=== PATIENT | female | born 1960 | race Caucasian/White ===

== ENCOUNTER 2019-04-21 12:24 | Outpatient (CLI) | payer OTHER, SELFPAY ==
[2019-04-21 12:56] LABS: Basophils Absolute Auto 0.05 K/mm3 (0.00-0.10); Basophils Percent Auto 0.5 % (0.0-1.0); Eosinophils Percent Auto 2.1 % (1.0-6.0); Hematocrit 43.3 % (35.0-49.0); Hemoglobin 14.7 g/dL (12.0-15.0); Immature Granulocyte Absolute 0.05 K/mm3 (0.00-0.00); Immature Granulocyte Percent A 0.5 % (0.0-0.0); Immature Platelet Fraction Pct 3.7 % (1.0-7.0); Lymphocytes Absolute Auto 1.78 K/mm3 (1.10-4.50); Lymphocytes Percent Auto 18.5 % (18.0-42.0); Mean Corpuscular HGB Conc 33.9 g/dL (32.0-36.0); Mean Corpuscular Hemoglobin 36.8 pg (27.0-31.0); Mean Corpuscular Volume 108.5 fL (78.0-102.0); Mean Platelet Volume 10.8 fl (9.2-11.8); Monocytes Absolute Auto 0.65 K/mm3 (0.10-0.90); Monocytes Percent Auto 6.7 % (2.0-11.0); Neutrophils Absolute Auto 6.9 K/mm3 (1.7-7.2); Neutrophils Percent Auto 71.7 % (50.0-70.0); Platelet Count Result 134 K/mm3 (150-420); Red Blood Count 3.99 M/mm3 (4.20-5.40); Red Cell Distribution Width 13.6 % (11.6-14.4); White Blood Count 9.6 K/mm3 (4.8-10.8)
[2019-04-21 13:50] LABS: Alanine Aminotransferase 31 U/L (14-59); Albumin Level 4.3 g/dL (3.4-5.0); Alkaline Phosphatase 88 U/L (46-116); Anion Gap 14.8 mmol/L (7-16); Aspartate Amino Transferase 23 U/L (15-37); Bilirubin,Total 0.6 mg/dL (0.00-1.00); Blood Urea Nitrogen 20 mg/dL (7-18); Calcium 8.8 mg/dL (8.5-10.1); Carbon Dioxide 27 mmol/L (21-32); Chloride 104 mmol/L (98-108); Estimated Glomerular Filt Rate > 60; Glucose 102 mg/dL (70-99); Osmolality Calculated 296 mOsm/kg (285-295); Potassium 3.8 mmol/L (3.5-5.1); Sodium 142 mmol/L (136-145)
== END 2019-04-21 12:25 | disposition home or self-care (01) ==
LOC: CHSLAB 12:29
DX: M06.09 Rheumatoid arthritis without rheumatoid factor, multiple sites (principal); Z79.899 Other long term (current) drug therapy
CPT/HCPCS: 36415; 80053; 85025; 85055

== ENCOUNTER 2019-04-24 09:59 | Outpatient (CLI) | payer OTHER, SELFPAY ==
--- NOTE | ~2019-04-24 | CT_ITS ---
EXAMINATION:CT lung screening DATE: 04/24/2019 10:20 INDICATION: Personal history of tobacco dependence. Current smoker with 15 pack year history. TECHNIQUE: Computed tomography (CT) of the chest was performed without intravenous contrast. Automate d exposure control and iterative reconstruction technique were employed. The dose-length product (DLP ) was 103.15 mGy-cm. COMPARISON: CT abdomen and pelvis 10/02/2016 FINDINGS: There is mild atelectasis bilaterally. Calcified pulmonary nodules are consistent with old granulomatous disease. No pleural effusion. The heart size is normal. No pericardial effusion. There are calcifications in the aortic valve. There is a right internal jugular port with tip at superior c avoatrial junction. There are calcifications around the middle segment of the catheter. There is magen re thoracic spondylosis. IMPRESSION: 1. Lung-RADS category 1: Negative. Reviewed, dictated and finalized at location A. [facility]
== END 2019-04-24 10:00 | disposition home or self-care (01) ==
LOC: CHSIMG 10:01
PROVIDERS: Visit Provider Internal Medicine Infectious Disease
DX: Z12.2 Encounter for screening for malignant neoplasm of respiratory organs (principal); Z87.891 Personal history of nicotine dependence
CPT/HCPCS: G0297

== ENCOUNTER 2019-04-25 13:50 | Emergency (ER) | payer OTHER, SELFPAY ==
[2019-04-25 14:04] VITALS: BP 140/84; PULSE 79; RESP 20; TEMP 36.2; O2SAT 98
--- NOTE | 2019-04-25 14:08 | ED.UPPEXIN ---
HPI - Extremity Injury (Upper) General Chief Complaint: Extremity Injury, Upper Stated Complaint: R SHOULDER SWELLING Time Seen by Provider: 04/25/19 14:09 Source: patient Mode of arrival: ambulatory Limitations: no limitations History of Present Illness HPI narrative: A 59 y/o female-- a smoker/nondrinker hx of RA on steroids, MTX--, presents to with c/o right shoulder pain and edema. Pt states that she had a knot on both of her shoulders 1 week ago and her right shoulder started swelling 2 days ago. Pt notes that she has been ironing, sewing more than normal. Pt called her PCP and he advised that she present to UC for evaluation to r/o an infection. Pt has a PMHx of RA and fibromyalgia and is on Kevzara. Pt also takes Prednisone 5 mg and morphine tablets. She reports old neck pain, but denies any recent injuries; no fever, redness, radiating pain, numbness/weakness, lateralizing weakness, Onset (ago): day(s) (2) Other Extremity Injury: Right: shoulder Related Data Home Medications Medication Instructions Recorded Confirmed B Complex-Vitamin B12 04/25/19 Calcium 500 04/25/19 Iron 04/25/19 Vitamin C 04/25/19 Vitamin D2 04/25/19 acyclovir 400 mg PO BID 04/25/19 04/25/19 atorvastatin 40 mg PO DAILY 04/25/19 04/25/19 cyclobenzaprine 10 mg PO TID 04/25/19 04/25/19 diclofenac sodium 75 mg PO BID 04/25/19 04/25/19 ezetimibe 10 mg PO DAILY 04/25/19 04/25/19 folic acid 1 mg PO DAILY 04/25/19 04/25/19 gabapentin See Rx Instructions .ROUTE .COMPLEX 04/25/19 04/25/19 hydroxychloroquine 200 mg PO BID 04/25/19 04/25/19 lisinopril-hydrochlorothiazide 1 tablet PO DAILY 04/25/19 04/25/19 methotrexate sodium See Rx Instructions .ROUTE .COMPLEX 04/25/19 04/25/19 morphine 04/25/19 multivitamin 1 tablet PO DAILY 04/25/19 04/25/19 potassium chloride 04/25/19 prednisone 5 mg PO DAILY 04/25/19 04/25/19 sarilumab [Kevzara] 200 mg SUBCUT ONCE 04/25/19 04/25/19 sertraline 100 mg PO DAILY 04/25/19 04/25/19 trazodone 100 mg PO HS 04/25/19 04/25/19 Allergies Allergy/AdvReac Type Severity Reaction Status Date / Time Sulfa (Sulfonamide Allergy Mild Rash Verified 04/25/19 14:14 Antibiotics) levofloxacin Allergy Rash Verified 04/25/19 14:16 Review of Systems Review of Systems: Narrative: General/Constitutional: Denies: weight loss,fever, any recent injuries Eyes: Denies: Redness,discharge Ears/Nose/Throat: Denies: Epistaxis,ear discharge Respiratory: Denies: Hemoptysis Gastrointestinal: Denies: Vomiting, Bleeding-rectal Skin: Denies: Lumps, eruption Musculoskeletal: Reports: right shoulder pain and edema, neck pain Neurologic: Denies: Focal Weakness,Sz Hematologic: Denies: Petechiae/Purpura Psychiatric: Denies: Suicidal ideation All systems reviewed & are unremarkable except as noted in HPI and below PMFSH Past Medical History Medical History Anxiety Deafness in left ear Depression Fibromyalgia GERD (gastroesophageal reflux disease) H/O Sjogren's disease HLD (hyperlipidemia) HTN (hypertension) Rheumatoid arthritis Systemic lupus erythematosus Surgical History Surgical History H/O section x2 H/O foot surgery left, x3 H/O Spinal surgery H/O: hysterectomy Social History Social History (Updated 04/25/19 @ 14:24 by Vicky Gunter) Smoking status: Smoker, status unknown Alcohol intake: never Comments PCP: Dr. Rutherford At time of signature, agree with nursing past medical, surgical, social and family history. There is no relevant family history pertinent to the presenting complaint Exam Narrative: Exam Narrative: General Appearance: Well appearing, Well nourished, No distress EYE: PERRLA, EOMI, Conjunctiva clear Ears: External ear normal, Auditory canal normal Nose: Normal nose, Nares clear Mouth/Throat: Normal appearing, Normal lips Neck: Supple Respiratory: Airway patent, No respir
== END 2019-04-25 14:42 | disposition home or self-care (01) ==
PROVIDERS: Emergency Provider Emergency Medicine; PCP Physician Assistant
DX: M75.51 Bursitis of right shoulder (principal); M06.9 Rheumatoid arthritis, unspecified; M25.411 Effusion, right shoulder; F41.9 Anxiety disorder, unspecified; F32.9 Major depressive disorder, single episode, unspecified; M79.7 Fibromyalgia; K21.9 Gastro-esophageal reflux disease without esophagitis; M35.00 Sjogren syndrome, unspecified; E78.5 Hyperlipidemia, unspecified; I10 Essential (primary) hypertension; M32.9 Systemic lupus erythematosus, unspecified
CPT/HCPCS: 99213; G0463

== ENCOUNTER 2019-08-20 11:36 | Outpatient (CLI) | payer OTHER, SELFPAY ==
[2019-08-20 11:54] LABS: Basophils Absolute Auto 0.04 K/mm3 (0.00-0.10); Basophils Percent Auto 0.6 % (0.0-1.0); Eosinophils Absolute Auto 0.25 K/mm3 (0.02-0.50); Eosinophils Percent Auto 3.6 % (1.0-6.0); Hematocrit 41.7 % (35.0-49.0); Hemoglobin 14.4 g/dL (12.0-15.0); Immature Granulocyte Absolute 0.03 K/mm3 (0.00-0.00); Immature Granulocyte Percent A 0.4 % (0.0-0.0); Immature Platelet Fraction Pct 4.4 % (1.0-7.0); Lymphocytes Absolute Auto 1.66 K/mm3 (1.10-4.50); Lymphocytes Percent Auto 24.2 % (18.0-42.0); Mean Corpuscular HGB Conc 34.5 g/dL (32.0-36.0); Mean Corpuscular Hemoglobin 38.1 pg (27.0-31.0); Mean Corpuscular Volume 110.3 fL (78.0-102.0); Mean Platelet Volume 10.6 fl (9.2-11.8); Monocytes Absolute Auto 0.53 K/mm3 (0.10-0.90); Monocytes Percent Auto 7.7 % (2.0-11.0); Neutrophils Absolute Auto 4.3 K/mm3 (1.7-7.2); Neutrophils Percent Auto 63.5 % (50.0-70.0); Platelet Count Result 142 K/mm3 (150-420); Red Blood Count 3.78 M/mm3 (4.20-5.40); Red Cell Distribution Width 14.4 % (11.6-14.4); White Blood Count 6.9 K/mm3 (4.8-10.8)
[2019-08-20 12:19] LABS: Alanine Aminotransferase 30 U/L (14-59); Alkaline Phosphatase 74 U/L (46-116); Aspartate Amino Transferase 24 U/L (15-37); Bilirubin,Total 0.6 mg/dL (0.00-1.00); Blood Urea Nitrogen 17 mg/dL (7-18); Calcium 8.7 mg/dL (8.5-10.1); Carbon Dioxide 31 mmol/L (21-32); Chloride 101 mmol/L (98-108); Estimated Glomerular Filt Rate 57; Glucose 114 mg/dL (70-99); Osmolality Calculated 290 mOsm/kg (285-295); Sodium 139 mmol/L (136-145); Total Protein 6.2 g/dL (6.4-8.2)
[2019-08-20 12:20] LABS: CRP < 0.2 mg/dL (0.0-0.9)
[2019-08-20 12:55] LABS: Erythrocyte Sedimentation Rate 1 mm/hr (0-20)
== END 2019-08-20 11:37 | disposition home or self-care (01) ==
LOC: CHSLAB 11:38
PROVIDERS: PCP Physician Assistant; Visit Provider Internal Medicine
DX: M06.09 Rheumatoid arthritis without rheumatoid factor, multiple sites (principal)
CPT/HCPCS: 36415; 80053; 85025; 85055; 85652; 86140

== ENCOUNTER 2019-09-17 10:00 | Outpatient (RCR) | payer OTHER, SELFPAY ==
[2019-08-27 08:55] VITALS: BP_SYST 165
--- NOTE | 2019-08-27 10:10 | PTOPEVAL ---
INITIAL PHYSICAL THERAPY EVALUATION and PLAN OF CARE Thank you for referring Luli Galdamez to [facility]. She will be seen in PT 2x/wk x 4 wks. Please review, sign, date and return this plan of care JACK. I agree with and certify that the following plan of care is medically necessary. Referring Physician Date Admitting Provider: Attending Provider: PHYSICIAN NOT ON STAFF Referring Provider: *PT Outpatient Evaluation Start: 08/27/19 08:54 Freq: Status: Active Protocol: Document 08/27/19 08:55 INA (Rec: 08/27/19 10:02 INA [id number]) Therapy Assessment Status Assessment Status Assessment Status Evaluation Outpatient Past Medical History Past Medical History Source of Past Medical History Patient Neurological History Hx Neurological Disorders No Significant History Cardiovascular History Hx Hypercholesterolemia Yes Hx Hypertension Yes Respiratory History Hx Other Respiratory Disorders Yes: smokes 1 ppd Gastrointestinal History Hx Gastrointestinal Disorders No Significant History Genitourinary History Hx Genitourinary Disorders No Significant History Musculoskeletal History Hx Arthritis Yes: ra Hx Fibromyalgia Yes Hx Orthopedic Surgery Yes: left foot x 3 Hx Spinal Surgery Yes: cervical spine fusion Endocrine History Hx Systemic Lupus Erythematosus Yes Hx Other Endocrine Disorders Yes: sjogrens syndrome Reproductive History Hx Section Yes: x2 Other History Hx Other Medical Conditions Yes: fibromyalgia Evaluation Information Problem Diagnosis R AC jt cyst, R RTC tendinopathy, most likely a tear Onset ~6 months Additional Evaluation Detail SSI - x 15 years Subjective Information No incident - gradually came Query Text:As Reported By Patient/ on When relaxing - sudden Family sharp pains, constantly aches Unable to lie on R side Sleeping ability - fair - side sleeper - prefers R side Mornings - takes awhile to come around Takes about 1 hour to get going in mornings hot shower only helps for a little while voltaren cream - helps for a little while Diagnostic Tests X-Rays For This Problem Yes Prior Level of Function Activity Level (Last 3 Months) Hand Dominance Right Activity of Daily Living Ability Independent Indoor/Home Mobility Independent Medications Home Meds (Include: OTC, RX, Vitamins, takes 27-33 m
--- NOTE | 2019-09-08 14:42 | PCPTNOTE ---
Patient called & cancelled scheduled appointment this date due to illness.
--- NOTE | 2019-09-17 10:50 | PTOPEVAL ---
PHYSICAL THERAPY DISCHARGE NOTE Thank you for referring Luli Galdamez to [facility]. Samreen has been seen x 5 visits. She has met all goals set except for R g-h jt strength goals. I agree with Samreen's discharge from PT. Referring Physician Date Admitting Provider: Attending Provider: PHYSICIAN NOT ON STAFF Referring Provider: *PT Outpatient Evaluation Start: 08/27/19 08:54 Freq: Status: Active Protocol: Document 09/17/19 09:54 INA (Rec: 09/17/19 10:49 INA [id number]) Therapy Assessment Status Assessment Status Assessment Status Discharge Evaluation Information Problem Subjective Information Samreen reports R shoulder is Query Text:As Reported By Patient/ doing better - but still feels Family like there is no strength with her shoulder. Still having difficulties with ADLs, IADLs at times. She was having some difficulty in obtaining reciprocal pulleys - but still going to get them. Pain Assessment Timing of Pain Assessment Timing of Pain Assessment Assessment Pain Scale Pain Scale Used Numeric (1 - 10) Self Report Pain Assessment Right Shoulder(s) Reported Pain Level 5 Lowest Pain Intensity 5 Greatest Pain Intensity 8 Pain Score Pain Score 5: Self Report Upper Extremity Range of Motion Scapular/ Shoulder Range of Motion Right Shoulder Flexion - Active 168 Shoulder Extension - Active 67 Shoulder Abduction - Active 170 Shoulder Medial Rotation - Active 90 Shoulder Medial Rotation - Active T7 Query Text:Reach Behind the Back Shoulder Lateral Rotation - Active 80 Shoulder Lateral Rotation - Active T3 Query Text:Reach Behind the Head Scapular/Shoulder Range of Motion ER in neutral - 85 Comments No pain expressed with active ROM Upper Extremity Muscle Strength Testing Scapular/Shoulder Right Shoulder Flexion Strength 3+ Fair + Shoulder Extension Strength 5 Normal Shoulder Abduction Strength 3+ Fair + Shoulder Medial Rotation Strength 5 Normal Shoulder Lateral Rotation Strength 3+ Fair + Palpation Assessment Palpation Palpation good R g-h jt capsular mobility. Mild capsular end feel restriction felt at end range ER. PT Clinical Summary Clinical Summary Protocol: PTEVCODE PT Clinical Summary Quick DASH - 20.45% Samreen has met all goals set with exception of R g-h jt
== END 2019-09-22 13:16 | disposition home or self-care (01) ==
LOC: ANHPT 10:00
PROVIDERS: PCP Physician Assistant
DX: M67.911 Unspecified disorder of synovium and tendon, right shoulder (principal)
CPT/HCPCS: 97110; 97140; 97162

== ENCOUNTER 2019-11-10 13:42 | Emergency (ER) | payer OTHER, SELFPAY ==
[2019-11-10 13:45] VITALS: BP 159/79; PULSE 73; RESP 16; TEMP 36.6; O2SAT 98
--- NOTE | 2019-11-10 14:16 | ED.SKABFB ---
HPI - Skin/Abscess/Foreign Bdy General Chief complaint: Skin/Abscess/Foreign Body Stated complaint: rash ankle pain Source: patient Mode of arrival: ambulatory Limitations: no limitations History of Present Illness HPI narrative: patient is a 59-year-old female who presents with multiple itchy red spots all over her body. Patient states that she still was staying at her dad's cabin camping over the weekend. She then noticed the rash throughout her body it is itchy red spots diffusely throughout her body. She has no fevers chills no nausea vomiting she does complain of pain in her left ankle, however she has had multiple surgeries on this ankle and it hurts all the time. MD complaint: rash Onset (ago): day(s) Location: generalized Severity: moderate Quality: pruritic Pain Consistency: constant Relieving factors: none Exacerbating factors: none Context: recent camping Associated symptoms: denies other symptoms Related Data Home Medications Medication Instructions Recorded Confirmed atorvastatin 40 mg PO HS 04/25/19 11/10/19 cyclobenzaprine 10 mg PO TID PRN 04/25/19 11/10/19 diclofenac sodium 75 mg PO BID 04/25/19 11/10/19 folic acid 2 mg PO DAILY 04/25/19 11/10/19 gabapentin 900 mg PO TID 04/25/19 11/10/19 hydroxychloroquine 200 mg PO BID 04/25/19 11/10/19 lisinopril-hydrochlorothiazide 1 tablet PO DAILY 04/25/19 11/10/19 methotrexate sodium 15 mg PO WEEKLY 04/25/19 11/10/19 multivitamin 1 tablet PO DAILY 04/25/19 11/10/19 prednisone 5 mg PO DAILY 04/25/19 11/10/19 sertraline 100 mg PO DAILY 04/25/19 11/10/19 albuterol sulfate 2 puff INHALATION Q6-12H PRN 11/10/19 11/10/19 ascorbic acid (vitamin C) [Vitamin 1 g PO DAILY 11/10/19 11/10/19 C] baricitinib [Olumiant] 2 mg PO DAILY 11/10/19 11/10/19 calcium carbonate-vitamin D3 2 tablet PO DAILY 11/10/19 11/10/19 [Calcium 500 With D] cyanocobalamin (vitamin B-12) 500 mcg PO DAILY 11/10/19 11/10/19 Allergies Allergy/AdvReac Type Severity Reaction Status Date / Time Sulfa (Sulfonamide Allergy Mild Rash Verified 04/25/19 14:14 Antibiotics) levofloxacin Allergy Rash Verified 04/25/19 14:16 Review of Systems Review of Systems: All systems reviewed & are unremarkable except as noted in HPI and below Constitutional: Constitutional: Reports no additional constitutional complaints Eyes: Eyes: Reports no additional eye complaints ENT: Reports system reviewed and no additional complaints, except as documented Cardiovascular: Cardiovascular: Reports no additional cardiovascular complaints Respiratory: Respiratory: Reports no additional respiratory complaints Gastrointestinal: Gastrointestinal: Reports no additional gastrointestinal complaints Musculoskeletal: Musculoskeletal: Reports no additional musculoskeletal complaints Integumentary/Breasts: Skin/Breast: Reports as per HPI Neurologic: Reports system reviewed and no additional complaints, except as documented Psychiatric: Psychiatric: Reports no additional psychiatric complaints Endocrine: Endocrine: Reports no additional endocrine complaints Hematologic/Lymphatic: Hematologic/Lymphatic: Reports no additional hematologic/lymphatic complaints Allergic/Immunologic: Allergic/Immunologic: Reports no additional allergic/immunologic complaints PMF Past Medical History Medical History Anxiety Deafness in left ear Depression Fibromyalgia GERD (gastroesophageal reflux disease) H/O Sjogren's disease HLD (hyperlipidemia) HTN (hypertension) Rheumatoid arthritis Systemic lupus erythematosus Surgical History Surgical History H/O section x2 H/O foot surgery left, x3 H/O Spinal surgery H/O: hysterectomy Social History Social History Smoking status: Smoker, status unknown Alcohol intake: never Exam Const: Gene
[2019-11-10 14:21] VITALS: RESP 16; O2SAT 98
== END 2019-11-10 14:27 | disposition home or self-care (01) ==
PROVIDERS: Emergency Provider Emergency Medicine; PCP Physician Assistant
DX: T14.8XXA Other injury of unspecified body region, initial encounter (principal); W57.XXXA Bitten or stung by nonvenomous insect and other nonvenomous arthropods, initial encounter; M25.572 Pain in left ankle and joints of left foot; H91.92 Unspecified hearing loss, left ear; F32.9 Major depressive disorder, single episode, unspecified; M79.7 Fibromyalgia; K21.9 Gastro-esophageal reflux disease without esophagitis; M35.00 Sjogren syndrome, unspecified; E78.5 Hyperlipidemia, unspecified; I10 Essential (primary) hypertension; M06.9 Rheumatoid arthritis, unspecified; M32.9 Systemic lupus erythematosus, unspecified
CPT/HCPCS: 99281; 99282

== ENCOUNTER 2019-11-13 14:26 | Emergency (ER) | payer OTHER, SELFPAY ==
[2019-11-13 14:45] VITALS: BP 131/55; PULSE 73; RESP 16; TEMP 36.6; O2SAT 98
--- NOTE | 2019-11-13 14:54 | ED.SKABFB ---
HPI - Skin/Abscess/Foreign Bdy General Chief complaint: Skin/Abscess/Foreign Body Stated complaint: Rash Source: patient Mode of arrival: ambulatory Limitations: no limitations History of Present Illness HPI narrative: Patient is a 59-year-old female who presents complaining of multiple insect bites x3 to 4 days. She reports going to her father's cabin and reports dozens of insect bites to bilateral legs and torso. She reports insect bite above left eye. Reports itchy, denies drainage. She has not used any [id number]-[id number] creams or medication for itch relief. MD complaint: insect bite/sting Related Data Home Medications Medication Instructions Recorded Confirmed atorvastatin 40 mg PO HS 04/25/19 11/10/19 cyclobenzaprine 10 mg PO TID PRN 04/25/19 11/10/19 diclofenac sodium 75 mg PO BID 04/25/19 11/10/19 folic acid 2 mg PO DAILY 04/25/19 11/10/19 gabapentin 900 mg PO TID 04/25/19 11/10/19 hydroxychloroquine 200 mg PO BID 04/25/19 11/10/19 lisinopril-hydrochlorothiazide 1 tablet PO DAILY 04/25/19 11/10/19 methotrexate sodium 15 mg PO WEEKLY 04/25/19 11/10/19 multivitamin 1 tablet PO DAILY 04/25/19 11/10/19 prednisone 5 mg PO DAILY 04/25/19 11/10/19 sertraline 100 mg PO DAILY 04/25/19 11/10/19 albuterol sulfate 2 puff INHALATION Q6-12H PRN 11/10/19 11/10/19 ascorbic acid (vitamin C) [Vitamin 1 g PO DAILY 11/10/19 11/10/19 C] baricitinib [Olumiant] 2 mg PO DAILY 11/10/19 11/10/19 calcium carbonate-vitamin D3 2 tablet PO DAILY 11/10/19 11/10/19 [Calcium 500 With D] cyanocobalamin (vitamin B-12) 500 mcg PO DAILY 11/10/19 11/10/19 Allergies Allergy/AdvReac Type Severity Reaction Status Date / Time Sulfa (Sulfonamide Allergy Mild Rash Verified 04/25/19 14:14 Antibiotics) levofloxacin Allergy Rash Verified 04/25/19 14:16 Review of Systems Review of Systems: Narrative: CONSTITUTIONAL: Denies fever, chills, or sweats. EYES: Denies visual changes, redness, or discharge. ENT: Denies rhinorrhea, congestion, sore throat, or otalgia. CARDIOVASCULAR: Denies chest pain, palpitations, or edema. RESPIRATORY: Denies cough or dyspnea. GASTROINTESTINAL: Denies abdominal pain, nausea, vomiting, or diarrhea. GENITOURINARY: Denies dysuria or hematuria. SKIN: Reports rash to bilateral legs and torso MUSCULOSKELETAL: Denies back pain, joint pain, or myalgia. NEUROLOGIC: Denies headache, numbness, dizziness, or weakness. PSYCHIATRIC: Denies anxiety or depression. [facility] Past Medical History Medical History Anxiety Deafness in left ear Depression Fibromyalgia GERD (gastroesophageal reflux disease) H/O Sjogren's disease HLD (hyperlipidemia) HTN (hypertension) Rheumatoid arthritis Systemic lupus erythematosus Surgical History Surgical History H/O section x2 H/O foot surgery left, x3 H/O Spinal surgery H/O: hysterectomy Social History Social History Smoking status: Smoker, status unknown Alcohol intake: never Exam Narrative: Exam Narrative: GENERAL: Well-appearing, well-nourished, and in no acute distress. HEAD: Normocephalic, atraumatic. EYES: EOMI. No redness or drainage. Conjunctiva are normal. ENT: Mucous membranes pink and moist. Nares clear. No rhinorrhea. TMs normal bilaterally. Throat normal. Uvula midline. NECK: AROM. Supple. No lymphadenopathy. CHEST: No respiratory distress. Clear to auscultation. HEART: Regular rate and rhythm. No murmur appreciated. Normal peripheral pulses. GI: Soft, nontender without rebound, or guarding. No distention. Bowel sounds normal in all quadrants. MUSCULOSKELETAL: No bony tenderness. EXTREMITIES: Normal range of motion. No edema. SKIN: Warm and dry. Dozens of raised red bumps to bilateral legs and torso, no drainage or edema noted NEURO: No focal deficits. Alert and oriented x3. Gait
== END 2019-11-13 15:06 | disposition home or self-care (01) ==
PROVIDERS: Emergency Provider Nurse Practitioner
DX: S80.862A Insect bite (nonvenomous), left lower leg, initial encounter (principal); S80.861A Insect bite (nonvenomous), right lower leg, initial encounter; S30.861A Insect bite (nonvenomous) of abdominal wall, initial encounter; S20.369A Insect bite (nonvenomous) of unspecified front wall of thorax, initial encounter; S20.96XA Insect bite (nonvenomous) of unspecified parts of thorax, initial encounter; W57.XXXA Bitten or stung by nonvenomous insect and other nonvenomous arthropods, initial encounter; F41.9 Anxiety disorder, unspecified; F32.9 Major depressive disorder, single episode, unspecified; M79.7 Fibromyalgia; K21.9 Gastro-esophageal reflux disease without esophagitis; M35.00 Sjogren syndrome, unspecified; E78.5 Hyperlipidemia, unspecified; I10 Essential (primary) hypertension; M06.9 Rheumatoid arthritis, unspecified; M32.9 Systemic lupus erythematosus, unspecified
CPT/HCPCS: 99213; G0463

== ENCOUNTER 2019-11-23 09:03 | Outpatient (CLI) | payer OTHER, SELFPAY ==
[2019-11-23 09:39] LABS: Basophils Absolute Auto 0.05 K/mm3 (0.00-0.10); Basophils Percent Auto 0.5 % (0.0-1.0); Eosinophils Absolute Auto 0.27 K/mm3 (0.02-0.50); Eosinophils Percent Auto 2.9 % (1.0-6.0); Hematocrit 42.1 % (35.0-49.0); Hemoglobin 14.1 g/dL (12.0-15.0); Immature Granulocyte Absolute 0.02 K/mm3 (0.00-0.00); Immature Granulocyte Percent A 0.2 % (0.0-0.0); Lymphocytes Absolute Auto 3.29 K/mm3 (1.10-4.50); Lymphocytes Percent Auto 34.7 % (18.0-42.0); Mean Corpuscular HGB Conc 33.5 g/dL (32.0-36.0); Mean Corpuscular Hemoglobin 36.2 pg (27.0-31.0); Mean Corpuscular Volume 108.2 fL (78.0-102.0); Mean Platelet Volume 10.6 fl (9.2-11.8); Monocytes Percent Auto 7.4 % (2.0-11.0); Neutrophils Absolute Auto 5.1 K/mm3 (1.7-7.2); Neutrophils Percent Auto 54.3 % (50.0-70.0); Platelet Count Result 213 K/mm3 (150-420); Red Blood Count 3.89 M/mm3 (4.20-5.40); Red Cell Distribution Width 13.9 % (11.6-14.4); White Blood Count 9.5 K/mm3 (4.8-10.8)
[2019-11-23 10:38] LABS: Erythrocyte Sedimentation Rate 2 mm/hr (0-20)
[2019-11-23 10:54] LABS: Alanine Aminotransferase 34 U/L (14-59); Albumin Level 4.2 g/dL (3.4-5.0); Alkaline Phosphatase 85 U/L (46-116); Anion Gap 5 mmol/L (8-16); Aspartate Amino Transferase 25 U/L (15-37); Bilirubin,Total 0.8 mg/dL (0.00-1.00); Blood Urea Nitrogen 20 mg/dL (7-18); Calcium 8.8 mg/dL (8.5-10.1); Carbon Dioxide 31 mmol/L (21-32); Chloride 104 mmol/L (98-108); Cholesterol 168 mg/dL (0-200); Estimated Glomerular Filt Rate > 60; Glucose 78 mg/dL (70-99); HDL Direct 79 mg/dL (40-60); LDL Cholesterol Calculated 71 mg/dL (<130); Osmolality Calculated 291 mOsm/kg (285-295); Potassium 3.8 mmol/L (3.5-5.1); Sodium 140 mmol/L (136-145); Total Protein 6.6 g/dL (6.4-8.2); Triglycerides 88 mg/dL (0-150)
[2019-11-23 10:55] LABS: CRP < 0.2 mg/dL (0.0-0.9)
[2019-11-27 16:11] LABS: NIL 0.01
[2019-11-27 16:12] LABS: Quantiferon TB Plus, 1T Negative; TB1-NIL 0.01; TB2-NIL 0.01
== END 2019-11-23 09:04 | disposition home or self-care (01) ==
LOC: CHSLAB 09:08
PROVIDERS: Visit Provider Internal Medicine
DX: Z79.899 Other long term (current) drug therapy (principal); M08.09 Unspecified juvenile rheumatoid arthritis, multiple sites
CPT/HCPCS: 36415; 80053; 80061; 85025; 85652; 86140; 86480

== ENCOUNTER 2020-01-13 10:43 | Outpatient (CLI) | payer OTHER, SELFPAY ==
[2020-01-13 11:18] LABS: Basophils Absolute Auto 0.02 K/mm3 (0.00-0.10); Basophils Percent Auto 0.2 % (0.0-1.0); Eosinophils Absolute Auto 0.24 K/mm3 (0.02-0.50); Eosinophils Percent Auto 2.9 % (1.0-6.0); Hematocrit 41.4 % (35.0-49.0); Hemoglobin 13.9 g/dL (12.0-15.0); Immature Granulocyte Absolute 0.04 K/mm3 (0.00-0.00); Immature Granulocyte Percent A 0.5 % (0.0-0.0); Lymphocytes Absolute Auto 2.52 K/mm3 (1.10-4.50); Lymphocytes Percent Auto 30.7 % (18.0-42.0); Mean Corpuscular HGB Conc 33.6 g/dL (32.0-36.0); Mean Corpuscular Hemoglobin 35.9 pg (27.0-31.0); Mean Platelet Volume 10.3 fl (9.2-11.8); Monocytes Absolute Auto 0.37 K/mm3 (0.10-0.90); Monocytes Percent Auto 4.5 % (2.0-11.0); Neutrophils Percent Auto 61.2 % (50.0-70.0); Platelet Count Result 227 K/mm3 (150-420); Red Blood Count 3.87 M/mm3 (4.20-5.40); Red Cell Distribution Width 14.6 % (11.6-14.4); White Blood Count 8.2 K/mm3 (4.8-10.8)
[2020-01-13 11:48] LABS: Alanine Aminotransferase 28 U/L (14-59); Albumin Level 4.1 g/dL (3.4-5.0); Alkaline Phosphatase 77 U/L (46-116); Anion Gap 10 mmol/L (8-16); Aspartate Amino Transferase 23 U/L (15-37); Bilirubin,Total 0.7 mg/dL (0.00-1.00); Blood Urea Nitrogen 21 mg/dL (7-18); Calcium 8.9 mg/dL (8.5-10.1); Carbon Dioxide 28 mmol/L (21-32); Chloride 102 mmol/L (98-108); Estimated Glomerular Filt Rate > 60; Glucose 92 mg/dL (70-99); Osmolality Calculated 293 mOsm/kg (285-295); Potassium 3.8 mmol/L (3.5-5.1); Sodium 140 mmol/L (136-145); Total Protein 6.4 g/dL (6.4-8.2)
[2020-01-13 11:50] LABS: CRP < 0.2 mg/dL (0.0-0.9)
[2020-01-13 12:19] LABS: Erythrocyte Sedimentation Rate 2 mm/hr (0-20)
[2020-01-14 12:57] LABS: Add Urine Microscopic? NO; Appearance Urine Clear (Clear); Bilirubin Urine Negative (Negative); Blood Urine Negative (Negative); Color Urine Yellow (Yellow); Glucose Urine UA Negative (Negative); Ketones Urine Negative (Negative); Leukocyte Esterase Ur Negative (Negative); Nitrate Urine Negative (Negative); Protein Urine Negative (Negative); Urobilinogen Urine 0.2 mg/dL (0.2-1.0)
== END 2020-01-13 10:44 | disposition home or self-care (01) ==
DX: M75.101 Unspecified rotator cuff tear or rupture of right shoulder, not specified as traumatic (principal)
CPT/HCPCS: 36415; 80053; 81003; 85025; 85652; 86140; 87081

== ENCOUNTER 2020-02-10 10:09 | Outpatient (CLI) | payer OTHER, SELFPAY ==
[2020-02-11 18:30] LABS: SARS-CoV-2 RNA PCR Negative
== END 2020-02-10 10:10 | disposition home or self-care (01) ==
LOC: CHSLAB 10:13
PROVIDERS: PCP Physician Assistant
DX: Z20.828 Contact with and (suspected) exposure to other viral communicable diseases (principal)
CPT/HCPCS: 87635; C9803; U0003

== ENCOUNTER 2020-03-22 15:15 | Outpatient (RCR) | payer OTHER, SELFPAY ==
--- NOTE | 2020-03-17 16:21 | PTOPEVAL ---
INITIAL PHYSICAL THERAPY EVALUATION and PLAN OF CARE Thank you for referring Luli Galdamez to [facility].? Samreen is scheduled to be seen for physical therapy? 1x/week for 6 weeks - due to insurance coverage limit. Please review, sign, date and return this plan of care JACK. I agree with and certify that the following plan of care is medically necessary. Referring Physician Date Admitting Provider: Attending Provider: Nitin Zarate Referring Provider: ZAKI Outpatient Evaluation Start: 03/17/20 14:48 Freq: Status: Active Protocol: Document 03/17/20 14:40 INA (Rec: 03/17/20 16:06 INA [id number]) Therapy Assessment Status Assessment Status Assessment Status Evaluation Outpatient Past Medical History Past Medical History Source of Past Medical History Recalled from Previous Visit, Confirmed with Patient/Family Neurological History Hx Neurological Disorders No Significant History Cardiovascular History Hx Hypercholesterolemia Yes Hx Hypertension Yes Respiratory History Hx Other Respiratory Disorders Yes: smokes 1 ppd Gastrointestinal History Hx Gastrointestinal Disorders No Significant History Genitourinary History Hx Genitourinary Disorders No Significant History Musculoskeletal History Hx Arthritis Yes: ra Hx Fibromyalgia Yes Hx Orthopedic Surgery Yes: left foot x 3 Hx Spinal Surgery Yes: cervical spine fusion Endocrine History Hx Systemic Lupus Erythematosus Yes Hx Other Endocrine Disorders Yes: sjogrens syndrome Reproductive History Hx Post Menopausal Yes Evaluation Information Problem Diagnosis R shoulder reverse TSA Onset 02/15/2020 Subjective Information Out patient surgery - in a Query Text:As Reported By Patient/ sling x 3 wks. At follow up Family visit all restrictions were lifted other than lifting an heavier object. Ordered pulleys and squeeze ball. R hand has been numb since surgery except for thumb and distal end of index finger - both sides of hand/fingers. Has been reaching overhead and out to the side. Sleeping - good but unable to sleep on R side. Mornings - stiff - takes about 1/2 hour for R shoulder to loosen up. Able to do own ADLs - vacuuming - uses L UE - holds cord with R UE. Prior Level
--- NOTE | 2020-03-30 13:50 | PCPTNOTE ---
Patient had called & cancelled the rest of her scheduled appointment this date. s Stating she seen the Dr, yesterday and was told no further therapy was needed.
--- NOTE | 2020-03-31 17:20 | PCPTNOTE ---
PHYSICAL THERAPY DISCHARGE SUMMARY Admitting Provider: Attending Provider: Nitin Zarate Patient:Luli Galdamez Date of :1960 Samreen phoned following her MD visit to let us know that she no longer needed physical therapy, [facility]. [facility]s initial visit was on 03/17/2020 14:30 and she had a total of 2 visits. The goals have been met. Thank you for referring Samreen to [facility]. Please review, sign, date and return this discharge summary JACK. I have been updated about Samreen's current status and I agree with discharge from the above service at this time. Referring Physician Date
== END 2020-04-01 08:10 | disposition home or self-care (01) ==
LOC: ANHPT 15:15
PROVIDERS: PCP Physician Assistant
DX: Z48.89 Encounter for other specified surgical aftercare (principal); Z98.890 Other specified postprocedural states
CPT/HCPCS: 97110; 97161

== ENCOUNTER 2020-05-16 11:13 | Outpatient (CLI) | payer OTHER, SELFPAY ==
[2020-05-16 12:39] LABS: Alanine Aminotransferase 26 U/L (14-59); Albumin Level 4.1 g/dL (3.4-5.0); Alkaline Phosphatase 89 U/L (46-116); Anion Gap 8 mmol/L (8-16); Aspartate Amino Transferase 20 U/L (15-37); Bilirubin,Total 0.6 mg/dL (0.00-1.00); Blood Urea Nitrogen 17 mg/dL (7-18); Calcium 9.3 mg/dL (8.5-10.1); Carbon Dioxide 30 mmol/L (21-32); Chloride 100 mmol/L (98-108); Cholesterol 176 mg/dL (0-200); Estimated Glomerular Filt Rate > 60; Glucose 84 mg/dL (70-99); HDL Direct 73 mg/dL (40-60); LDL Cholesterol Calculated 79 mg/dL (<130); Osmolality Calculated 286 mOsm/kg (285-295); Potassium 4.2 mmol/L (3.5-5.1); Sodium 138 mmol/L (136-145); Total Protein 6.6 g/dL (6.4-8.2); Triglycerides 122 mg/dL (0-150)
== END 2020-05-16 11:14 | disposition home or self-care (01) ==
LOC: CHSLAB 11:17
PROVIDERS: PCP Physician Assistant; Visit Provider Internal Medicine
DX: Z79.899 Other long term (current) drug therapy (principal); M06.09 Rheumatoid arthritis without rheumatoid factor, multiple sites
CPT/HCPCS: 36415; 80053; 80061

== ENCOUNTER 2020-08-17 09:28 | Outpatient (CLI) | payer OTHER, SELFPAY ==
[2020-08-17 09:55] LABS: Basophils Absolute Auto 0.03 K/mm3 (0.00-0.10); Basophils Percent Auto 0.5 % (0.0-1.0); Eosinophils Absolute Auto 0.18 K/mm3 (0.02-0.50); Eosinophils Percent Auto 3.1 % (1.0-6.0); Hematocrit 38.4 % (35.0-49.0); Hemoglobin 12.9 g/dL (12.0-15.0); Immature Granulocyte Absolute 0.02 K/mm3 (0.00-0.00); Immature Granulocyte Percent A 0.3 % (0.0-0.0); Lymphocytes Absolute Auto 2.11 K/mm3 (1.10-4.50); Lymphocytes Percent Auto 35.8 % (18.0-42.0); Mean Corpuscular HGB Conc 33.6 g/dL (32.0-36.0); Mean Corpuscular Hemoglobin 34.2 pg (27.0-31.0); Mean Corpuscular Volume 101.9 fL (78.0-102.0); Mean Platelet Volume 10.7 fl (9.2-11.8); Monocytes Absolute Auto 0.26 K/mm3 (0.10-0.90); Monocytes Percent Auto 4.4 % (2.0-11.0); Neutrophils Absolute Auto 3.3 K/mm3 (1.7-7.2); Neutrophils Percent Auto 55.9 % (50.0-70.0); Platelet Count Result 222 K/mm3 (150-420); Red Blood Count 3.77 M/mm3 (4.20-5.40); Red Cell Distribution Width 14.8 % (11.6-14.4); White Blood Count 5.9 K/mm3 (4.8-10.8)
[2020-08-17 10:10] LABS: Alanine Aminotransferase 21 U/L (14-59); Albumin Level 3.7 g/dL (3.4-5.0); Alkaline Phosphatase 105 U/L (46-116); Anion Gap 7 mmol/L (8-16); Aspartate Amino Transferase 26 U/L (15-37); Bilirubin,Total 0.6 mg/dL (0.00-1.00); Blood Urea Nitrogen 21 mg/dL (7-18); Calcium 8.7 mg/dL (8.5-10.1); Carbon Dioxide 30 mmol/L (21-32); Chloride 103 mmol/L (98-108); Estimated Glomerular Filt Rate > 60; Glucose 88 mg/dL (70-99); Osmolality Calculated 292 mOsm/kg (285-295); Potassium 4.2 mmol/L (3.5-5.1); Sodium 140 mmol/L (136-145); Total Protein 6.4 g/dL (6.4-8.2)
== END 2020-08-17 09:29 | disposition home or self-care (01) ==
LOC: CHSLAB 09:30
PROVIDERS: PCP Family Medicine; Visit Provider Internal Medicine
DX: M06.09 Rheumatoid arthritis without rheumatoid factor, multiple sites (principal); Z79.899 Other long term (current) drug therapy
CPT/HCPCS: 36415; 80053; 85025

== ENCOUNTER 2020-08-25 12:06 | Emergency (ER) | payer OTHER, SELFPAY ==
--- NOTE | ~2020-08-25 | XR_ITS ---
XR elbow RT min 3V 08/25/2020 12:55 Indication: Right elbow pain Procedure: 4 views right elbow Comparison: No prior studies for comparison. Findings: No fracture or traumatic malalignment. There are degenerative changes of the elbow. No sign ificant joint effusion. No foreign bodies. There is mild soft tissue swelling along the ulnar aspect of the elbow. Impression: 1: No acute fracture. Reviewed, dictated and finalized at location A. Impression: 1: No acute fracture.
--- NOTE | 2020-08-25 12:38 | ED.UPPEXIN ---
HPI - Extremity Injury (Upper) General Chief Complaint: Extremity Injury, Upper Stated Complaint: rt arm bruising/pain Time Seen by Provider: 08/25/20 12:38 Source: patient and RN notes reviewed Mode of arrival: ambulatory Limitations: no limitations History of Present Illness HPI narrative: 60-year-old female presents to the [facility] with complaints of right elbow pain, bruising since February 15, 2020. States she has seen her doctor and he keeps telling her that it will get better. States that she had shoulder surgery and the bruising to the Area just has not gone away and now having tenderness to the medial elbow. Has Full ROM. +radial pulse, Cap refill under 2 seconds. Sensation intact in all 5 fingers. Full range of motion of the shoulder, elbow and wrist Related Data Home Medications Medication Instructions Recorded Confirmed atorvastatin 40 mg PO HS 04/25/19 08/25/20 cyclobenzaprine 10 mg PO TID PRN 04/25/19 08/25/20 diclofenac sodium 75 mg PO BID 04/25/19 08/25/20 folic acid 2 mg PO DAILY 04/25/19 08/25/20 gabapentin 900 mg PO TID 04/25/19 08/25/20 lisinopril-hydrochlorothiazide 1 tablet PO DAILY 04/25/19 08/25/20 methotrexate sodium 15 mg PO WEEKLY 04/25/19 08/25/20 multivitamin 1 tablet PO DAILY 04/25/19 08/25/20 sertraline 100 mg PO DAILY 04/25/19 08/25/20 albuterol sulfate 2 puff INHALATION Q6-12H PRN 11/10/19 08/25/20 ascorbic acid (vitamin C) [Vitamin 1 g PO DAILY 11/10/19 08/25/20 C] baricitinib [Olumiant] 2 mg PO DAILY 11/10/19 08/25/20 calcium carbonate-vitamin D3 2 tablet PO DAILY 11/10/19 08/25/20 [Calcium 500 With D] cyanocobalamin (vitamin B-12) 500 mcg PO DAILY 11/10/19 08/25/20 acyclovir 400 mg PO DAILY 08/25/20 08/25/20 potassium [Potassium-99] 99 mg PO DAILY 08/25/20 08/25/20 trazodone 100 mg PO HS 08/25/20 08/25/20 Allergies Allergy/AdvReac Type Severity Reaction Status Date / Time Sulfa (Sulfonamide Allergy Mild Rash Verified 08/25/20 12:36 Antibiotics) levofloxacin Allergy Rash Verified 08/25/20 12:36 Review of Systems Review of Systems: All systems reviewed & are unremarkable except as noted in HPI and below Constitutional: Constitutional: Reports no additional constitutional complaints Eyes: Eyes: Reports no additional eye complaints Cardiovascular: Cardiovascular: Reports no additional cardiovascular complaints and Denies chest pain Respiratory: Respiratory: Reports no additional respiratory complaints, Denies cough and Denies dyspnea Musculoskeletal: Musculoskeletal: Reports as per HPI and Reports arthralgias (Right elbow) Integumentary/Breasts: Skin/Breast: Reports as per HPI Comments: Bruising to the right forearm, elbow. States has been there since February 15, 2020 Neurologic: Reports system reviewed and no additional complaints, except as documented, Denies vertigo, Denies headache(s), Denies focal weakness, Denies numbness and Denies weakness Psychiatric: Psychiatric: Reports no additional psychiatric complaints Allergic/Immunologic: Allergic/Immunologic: Reports no additional allergic/immunologic complaints [facility] Past Medical History Medical History (Updated 08/25/20 @ 13:28 by Rosalie Bangura) Anxiety Deafness in left ear Depression Fibromyalgia GERD (gastroesophageal reflux disease) H/O Sjogren's disease HLD (hyperlipidemia) HTN (hypertension) Rheumatoid arthritis Systemic lupus erythematosus Surgical History Surgical History H/O section x2 H/O foot surgery left, x3 H/O Spinal surgery H/O: hysterectomy Social History Social History Smoking status: Smoker, status unknown Alcohol intake: never Comments At the time of my signature, I reviewed and agree with the nursing past medical, surgical, social, and family history. There is no relevant family history pertinent to the patient complaint. Exam Const: General: healthy appea
[2020-08-25 12:39] VITALS: BP 134/56; PULSE 83; RESP 16; TEMP 36.1; O2SAT 100
== END 2020-08-25 13:32 | disposition home or self-care (01) ==
PROVIDERS: Emergency Provider Nurse Practitioner
DX: R58 Hemorrhage, not elsewhere classified (principal); F41.9 Anxiety disorder, unspecified; F32.9 Major depressive disorder, single episode, unspecified; M79.7 Fibromyalgia; K21.9 Gastro-esophageal reflux disease without esophagitis; M35.00 Sjogren syndrome, unspecified; E78.5 Hyperlipidemia, unspecified; I10 Essential (primary) hypertension; M06.9 Rheumatoid arthritis, unspecified; M32.9 Systemic lupus erythematosus, unspecified
CPT/HCPCS: 73080; 99213; G0463

== ENCOUNTER 2020-11-15 09:23 | Outpatient (CLI) | payer OTHER, SELFPAY ==
[2020-11-15 09:40] LABS: Basophils Absolute Auto 0.03 K/mm3 (0.00-0.10); Basophils Percent Auto 0.4 % (0.0-1.0); Eosinophils Absolute Auto 0.11 K/mm3 (0.02-0.50); Eosinophils Percent Auto 1.3 % (1.0-6.0); Hematocrit 38.9 % (35.0-49.0); Hemoglobin 13.5 g/dL (12.0-15.0); Immature Granulocyte Absolute 0.03 K/mm3 (0.00-0.00); Immature Granulocyte Percent A 0.4 % (0.0-0.0); Lymphocytes Absolute Auto 2.56 K/mm3 (1.10-4.50); Lymphocytes Percent Auto 29.9 % (18.0-42.0); Mean Corpuscular HGB Conc 34.7 g/dL (32.0-36.0); Mean Corpuscular Hemoglobin 35.9 pg (27.0-31.0); Mean Corpuscular Volume 103.5 fL (78.0-102.0); Mean Platelet Volume 9.9 fl (9.2-11.8); Monocytes Absolute Auto 0.37 K/mm3 (0.10-0.90); Monocytes Percent Auto 4.3 % (2.0-11.0); Neutrophils Absolute Auto 5.5 K/mm3 (1.7-7.2); Neutrophils Percent Auto 63.7 % (50.0-70.0); Platelet Count Result 246 K/mm3 (150-420); Red Blood Count 3.76 M/mm3 (4.20-5.40); Red Cell Distribution Width 16.1 % (11.6-14.4); White Blood Count 8.6 K/mm3 (4.8-10.8)
[2020-11-15 10:43] LABS: Erythrocyte Sedimentation Rate 4 mm/hr (0-20)
[2020-11-15 11:17] LABS: Alanine Aminotransferase 32 U/L (14-59); Albumin Level 4.1 g/dL (3.4-5.0); Alkaline Phosphatase 113 U/L (46-116); Anion Gap 9 mmol/L (8-16); Aspartate Amino Transferase 23 U/L (15-37); Bilirubin,Total 0.9 mg/dL (0.00-1.00); Blood Urea Nitrogen 29 mg/dL (7-18); Calcium 8.7 mg/dL (8.5-10.1); Carbon Dioxide 28 mmol/L (21-32); Chloride 103 mmol/L (98-108); Estimated Glomerular Filt Rate 57; Glucose 82 mg/dL (70-99); Osmolality Calculated 294 mOsm/kg (285-295); Potassium 3.9 mmol/L (3.5-5.1); Sodium 140 mmol/L (136-145); Total Protein 6.5 g/dL (6.4-8.2)
[2020-11-15 11:18] LABS: CRP < 0.2 mg/dL (0.0-0.9)
[2020-11-18 09:16] LABS: NIL 0.01 IU/mL
[2020-11-18 09:17] LABS: TB1-NIL 0.01 IU/mL
[2020-11-18 09:20] LABS: Quantiferon TB Plus, 1T NEGATIVE
== END 2020-11-15 09:24 | disposition home or self-care (01) ==
LOC: CHSLAB 09:26
PROVIDERS: PCP Family Medicine; Visit Provider Internal Medicine
DX: M06.09 Rheumatoid arthritis without rheumatoid factor, multiple sites (principal); Z79.899 Other long term (current) drug therapy
CPT/HCPCS: 36415; 80053; 85025; 85652; 86140; 86480

== ENCOUNTER 2021-01-10 17:02 | Emergency (ER) | payer OTHER, SELFPAY ==
[2021-01-10 17:29] VITALS: BP 160/70; PULSE 94; RESP 20; TEMP 36.6; O2SAT 96
--- NOTE | 2021-01-10 17:33 | ED_ITS ---
HPI - Extremity Injury (Upper) General Chief Complaint: Extremity Injury, Upper Stated Complaint: bleeding from arm. Related Data Home Medications Medication Instructions Recorded Confirmed atorvastatin 40 mg PO HS 04/25/19 08/25/20 cyclobenzaprine 10 mg PO TID PRN 04/25/19 08/25/20 diclofenac sodium 75 mg PO BID 04/25/19 08/25/20 folic acid 2 mg PO DAILY 04/25/19 08/25/20 gabapentin 900 mg PO TID 04/25/19 08/25/20 lisinopril-hydrochlorothiazide 1 tablet PO DAILY 04/25/19 08/25/20 methotrexate sodium 15 mg PO WEEKLY 04/25/19 08/25/20 multivitamin 1 tablet PO DAILY 04/25/19 08/25/20 sertraline 100 mg PO DAILY 04/25/19 08/25/20 albuterol sulfate 2 puff INHALATION Q6-12H PRN 11/10/19 08/25/20 ascorbic acid (vitamin C) [Vitamin 1 g PO DAILY 11/10/19 08/25/20 C] baricitinib [Olumiant] 2 mg PO DAILY 11/10/19 08/25/20 calcium carbonate-vitamin D3 2 tablet PO DAILY 11/10/19 08/25/20 [Calcium 500 With D] cyanocobalamin (vitamin B-12) 500 mcg PO DAILY 11/10/19 08/25/20 acyclovir 400 mg PO DAILY 08/25/20 08/25/20 potassium [Potassium-99] 99 mg PO DAILY 08/25/20 08/25/20 trazodone 100 mg PO HS 08/25/20 08/25/20 Allergies Allergy/AdvReac Type Severity Reaction Status Date / Time Sulfa (Sulfonamide Allergy Mild Rash Verified 01/10/21 17:45 Antibiotics) levofloxacin Allergy Rash Verified 01/10/21 17:45 [facility] Past Medical History Medical History (Updated 08/26/20 @ 00:00 by Devyn Spence) Anxiety Deafness in left ear Depression Fibromyalgia GERD (gastroesophageal reflux disease) H/O Sjogren's disease HLD (hyperlipidemia) HTN (hypertension) Rheumatoid arthritis Systemic lupus erythematosus Surgical History Surgical History H/O section x2 H/O foot surgery left, x3 H/O Spinal surgery H/O: hysterectomy Social History Social History Smoking status: Smoker, status unknown Alcohol intake: never Discharge Plan Discharge Prescriptions: No Action ascorbic acid (vitamin C) [Vitamin C] 1,000 mg Tablet 1 g PO DAILY RF: 0 cyanocobalamin (vitamin B-12) 500 mcg Tablet 500 mcg PO DAILY RF: 0 albuterol sulfate 90 mcg/actuation HFA aerosol inhaler 2 puff INHALATION Q6-12H PRN (Reason: Shortness Of Breath) RF: 0 calcium carbonate-vitamin D3 [Calcium 500 With D] 500 mg(1,250mg) -400 unit Tablet 2 tablet PO DAILY RF: 0 Olumiant 2 mg Tablet 2 mg PO DAILY RF: 0 cyclobenzaprine 10 mg Tablet 10 mg PO TID PRN (Reason: Muscle Spasm) RF: 0 atorvastatin 40 mg Tablet 40 mg PO HS RF: 0 sertraline 100 mg Tablet 100 mg PO DAILY RF: 0 methotrexate sodium 2.5 mg Tablet 15 mg PO WEEKLY RF: 0 gabapentin 300 mg Capsule 900 mg PO TID RF: 0 diclofenac sodium 75 mg Tablet,Delayed Release (Dr/Ec) 75 mg PO BID RF: 0 folic acid 1 mg Tablet 2 mg PO DAILY RF: 0 lisinopril-hydrochlorothiazide 10-12.5 mg Tablet 1 tablet PO DAILY RF: 0 multivitamin Tablet 1 tablet PO DAILY RF: 0 acyclovir 400 mg tablet 400 mg PO DAILY RF: 0 potassium [Potassium-99] 99 mg Tablet 99 mg PO DAILY RF: 0 trazodone 100 mg tablet 100 mg PO HS RF: 0
--- NOTE | 2021-01-10 17:55 | ED.UPPEXIN ---
HPI - Extremity Injury (Upper) General Chief Complaint: Extremity Injury, Upper Stated Complaint: bleeding from arm. Source: patient and family Mode of arrival: ambulatory Limitations: no limitations History of Present Illness HPI narrative: 60-year-old female history of rheumatoid arthritis, lupus, fibromyalgia had right shoulder replacement done at [facility] . Postoperatively she noted bleeding coming from her right shoulder incision site. the patient had ongoing bleeding from the right incision site. The patient presented to the ER dressing soaked with blood. I removed the dressing over the incision site which was glued. The bleeding was noted to be coming from 2-3 spots measuring 2-3 mm. I had the patient lay flat and placed a sandbag over the incision site. MD complaint: injury to: right and shoulder Onset (ago): hour(s) ( Three hours. The bleeding started right after surgery even before she left the hospital) Other injuries: none Severity: moderate Relieving factors: none Exacerbating factors: none Context: other ( postoperative bleeding.) Associated symptoms: other ( The patient complains of numbness of the right upper extremity. It appears that she got a nerve block for the surgery.) Treatments prior to arrival: bandage Related Data Home Medications Medication Instructions Recorded Confirmed atorvastatin 40 mg PO HS 04/25/19 01/10/21 cyclobenzaprine 10 mg PO TID PRN 04/25/19 01/10/21 diclofenac sodium 75 mg PO BID 04/25/19 01/10/21 folic acid 2 mg PO DAILY 04/25/19 01/10/21 gabapentin 900 mg PO TID 04/25/19 01/10/21 lisinopril-hydrochlorothiazide 1 tablet PO DAILY 04/25/19 01/10/21 methotrexate sodium 15 mg PO WEEKLY 04/25/19 01/10/21 multivitamin 1 tablet PO DAILY 04/25/19 01/10/21 sertraline 100 mg PO DAILY 04/25/19 01/10/21 albuterol sulfate 2 puff INHALATION Q6-12H PRN 11/10/19 01/10/21 ascorbic acid (vitamin C) [Vitamin 1 g PO DAILY 11/10/19 01/10/21 C] baricitinib [Olumiant] 2 mg PO DAILY 11/10/19 01/10/21 calcium carbonate-vitamin D3 2 tablet PO DAILY 11/10/19 01/10/21 [Calcium 500 With D] cyanocobalamin (vitamin B-12) 500 mcg PO DAILY 11/10/19 01/10/21 acyclovir 400 mg PO DAILY 08/25/20 01/10/21 potassium [Potassium-99] 99 mg PO DAILY 08/25/20 01/10/21 trazodone 100 mg PO HS 08/25/20 01/10/21 Allergies Allergy/AdvReac Type Severity Reaction Status Date / Time Sulfa (Sulfonamide Allergy Mild Rash Verified 01/10/21 17:45 Antibiotics) levofloxacin Allergy Rash Verified 01/10/21 17:45 Review of Systems Review of Systems: All systems reviewed & are unremarkable except as noted in HPI and below ( HPI) Constitutional: Constitutional: Reports as per HPI Respiratory: Respiratory: Reports other ( Chronic cough with sputum production.) Musculoskeletal: Musculoskeletal: Reports other ( the patient has chronic joint pains.) [facility] Past Medical History Medical History (Updated 01/11/21 @ 00:00 by Background Daemon) Anxiety Deafness in left ear Depression Fibromyalgia GERD (gastroesophageal reflux disease) H/O Sjogren's disease HLD (hyperlipidemia) HTN (hypertension) Medical history reviewed with no changes Rheumatoid arthritis Systemic lupus erythematosus Surgical History Surgical History (Updated 01/11/21 @ 00:00 by Background Daemon) H/O section x2 H/O foot surgery left, x3 H/O Spinal surgery H/O: hysterectomy History of right shoulder replacement Social History Social History Smoking status: Smoker, status unknown Alcohol intake: never Exam Narrative: The patient had right shoulder replacement and have wound is glued together. The incision is approximately 10 cm. There are 2 mm bleeding spots on the incision. There is 3 cm hematoma on either side of the incision site. The patient is unable to move her shoulder. No significant tenderness is noted over the incision site. Con
[2021-01-10 18:12] LABS: Basophils Absolute Auto 0.02 K/mm3 (0.00-0.10); Basophils Percent Auto 0.2 % (0.0-1.0); Hematocrit 36.9 % (35.0-49.0); Hemoglobin 12.4 g/dL (12.0-15.0); Immature Granulocyte Absolute 0.07 K/mm3 (0.00-0.00); Immature Granulocyte Percent A 0.6 % (0.0-0.0); Lymphocytes Absolute Auto 0.75 K/mm3 (1.10-4.50); Lymphocytes Percent Auto 5.9 % (18.0-42.0); Mean Corpuscular HGB Conc 33.6 g/dL (32.0-36.0); Mean Corpuscular Hemoglobin 36.9 pg (27.0-31.0); Mean Corpuscular Volume 109.8 fL (78.0-102.0); Mean Platelet Volume 10.4 fl (9.2-11.8); Monocytes Absolute Auto 0.28 K/mm3 (0.10-0.90); Monocytes Percent Auto 2.2 % (2.0-11.0); Neutrophils Absolute Auto 11.5 K/mm3 (1.7-7.2); Neutrophils Percent Auto 91.1 % (50.0-70.0); Platelet Count Result 256 K/mm3 (150-420); Red Blood Count 3.36 M/mm3 (4.20-5.40); Red Cell Distribution Width 15.9 % (11.6-14.4); White Blood Count 12.7 K/mm3 (4.8-10.8)
[2021-01-10 18:21] LABS: Anion Gap 10 mmol/L (8-16); Blood Urea Nitrogen 11 mg/dL (7-18); Calcium 8.9 mg/dL (8.5-10.1); Carbon Dioxide 23 mmol/L (21-32); Chloride 105 mmol/L (98-108); Estimated CRCL calculation 71 ml/min; Estimated Glomerular Filt Rate > 60; Glucose 141 mg/dL (70-99); Osmolality Calculated 287 mOsm/kg (285-295); Sodium 138 mmol/L (136-145)
[2021-01-10 18:23] LABS: Potassium 5.2 mmol/L (3.5-5.1)
[2021-01-10 18:35] VITALS: BP 132/76; PULSE 70; RESP 18; O2SAT 98
--- NOTE | 2021-01-10 18:44 | PC.NURSE ---
PRESSURE WEIGHT TO ARM TO HELP STOP OOZING OF WOUND
[2021-01-10] MEDS: HYDROcodone/acetaminophen (*CRX) 5-325 MG TABLET 1 TAB PO (19:04)
--- NOTE | 2021-01-10 19:21 | PC.NURSE ---
NO BLEEDING, ABD & ARM WRAPPED IN COBAN, NEW SLING APPLIED
[2021-01-10 19:23] VITALS: BP 136/70; PULSE 75; RESP 18; TEMP 36.6; O2SAT 98
== END 2021-01-10 19:25 | disposition home or self-care (01) ==
PROVIDERS: Emergency Provider Internal Medicine Critical Care Medicine; PCP Family Medicine
DX: M96.830 Postprocedural hemorrhage of a musculoskeletal structure following a musculoskeletal system procedure (principal); Z96.611 Presence of right artificial shoulder joint
CPT/HCPCS: 36415; 80048; 85025; 99282; 99283; A4565; A9270

== ENCOUNTER 2021-06-20 14:29 | Outpatient (CLI) | payer OTHER, SELFPAY ==
[2021-06-20 14:46] LABS: Basophils Absolute Auto 0.04 K/mm3 (0.00-0.10); Basophils Percent Auto 0.4 % (0.0-1.0); Eosinophils Absolute Auto 0.04 K/mm3 (0.02-0.50); Eosinophils Percent Auto 0.4 % (1.0-6.0); Hematocrit 42.8 % (35.0-49.0); Hemoglobin 14.3 g/dL (12.0-15.0); Immature Granulocyte Absolute 0.03 K/mm3 (0.00-0.00); Immature Granulocyte Percent A 0.3 % (0.0-0.0); Lymphocytes Absolute Auto 1.28 K/mm3 (1.10-4.50); Lymphocytes Percent Auto 13.1 % (18.0-42.0); Mean Corpuscular HGB Conc 33.4 g/dL (32.0-36.0); Mean Corpuscular Hemoglobin 36.4 pg (27.0-31.0); Mean Corpuscular Volume 108.9 fL (78.0-102.0); Mean Platelet Volume 10.1 fl (9.2-11.8); Monocytes Percent Auto 5.1 % (2.0-11.0); Neutrophils Absolute Auto 7.9 K/mm3 (1.7-7.2); Neutrophils Percent Auto 80.7 % (50.0-70.0); Platelet Count Result 247 K/mm3 (150-420); Red Blood Count 3.93 M/mm3 (4.20-5.40); Red Cell Distribution Width 14.3 % (11.6-14.4); White Blood Count 9.8 K/mm3 (4.8-10.8)
[2021-06-20 15:31] LABS: Alanine Aminotransferase 29 U/L (14-59); Albumin Level 3.9 g/dL (3.4-5.0); Alkaline Phosphatase 94 U/L (46-116); Anion Gap 8 mmol/L (8-16); Aspartate Amino Transferase 24 U/L (15-37); Bilirubin,Total 0.3 mg/dL (0.00-1.00); Blood Urea Nitrogen 16 mg/dL (7-18); Calcium 8.9 mg/dL (8.5-10.1); Carbon Dioxide 30 mmol/L (21-32); Chloride 103 mmol/L (98-108); Estimated Glomerular Filt Rate > 60; Glucose 205 mg/dL (70-99); Osmolality Calculated 299 mOsm/kg (285-295); Potassium 3.9 mmol/L (3.5-5.1); Sodium 141 mmol/L (136-145); Total Protein 6.5 g/dL (6.4-8.2)
[2021-06-20 15:34] LABS: CRP < 0.2 mg/dL (0.0-0.9)
[2021-06-20 15:54] LABS: Erythrocyte Sedimentation Rate 10 mm/hr (0-20)
== END 2021-06-20 14:30 | disposition home or self-care (01) ==
LOC: CHSLAB 14:33
PROVIDERS: PCP Physician Assistant
DX: Z79.899 Other long term (current) drug therapy (principal); M06.09 Rheumatoid arthritis without rheumatoid factor, multiple sites
CPT/HCPCS: 36415; 80053; 85025; 85652; 86140

== ENCOUNTER 2021-09-20 11:11 | Outpatient (CLI) | payer OTHER, SELFPAY ==
[2021-09-20 11:41] LABS: Basophils Absolute Auto 0.04 K/mm3 (0.00-0.10); Basophils Percent Auto 0.5 % (0.0-1.0); Eosinophils Absolute Auto 0.13 K/mm3 (0.02-0.50); Eosinophils Percent Auto 1.6 % (1.0-6.0); Hematocrit 43.8 % (35.0-49.0); Hemoglobin 14.7 g/dL (12.0-15.0); Immature Granulocyte Absolute 0.08 K/mm3 (0.00-0.00); Lymphocytes Absolute Auto 1.76 K/mm3 (1.10-4.50); Lymphocytes Percent Auto 21.3 % (18.0-42.0); Mean Corpuscular HGB Conc 33.6 g/dL (32.0-36.0); Mean Corpuscular Hemoglobin 35.4 pg (27.0-31.0); Mean Corpuscular Volume 105.5 fL (78.0-102.0); Mean Platelet Volume 10.5 fl (9.2-11.8); Monocytes Absolute Auto 0.51 K/mm3 (0.10-0.90); Monocytes Percent Auto 6.2 % (2.0-11.0); Neutrophils Absolute Auto 5.7 K/mm3 (1.7-7.2); Neutrophils Percent Auto 69.4 % (50.0-70.0); Platelet Count Result 240 K/mm3 (150-420); Red Blood Count 4.15 M/mm3 (4.20-5.40); Red Cell Distribution Width 15.4 % (11.6-14.4); White Blood Count 8.3 K/mm3 (4.8-10.8)
[2021-09-20 11:57] LABS: Alanine Aminotransferase 27 U/L (14-59); Albumin Level 3.7 g/dL (3.4-5.0); Alkaline Phosphatase 85 U/L (46-116); Anion Gap 5 mmol/L (8-16); Aspartate Amino Transferase 24 U/L (15-37); Bilirubin,Total 0.6 mg/dL (0.00-1.00); Blood Urea Nitrogen 17 mg/dL (7-18); Carbon Dioxide 30 mmol/L (21-32); Chloride 102 mmol/L (98-108); Cholesterol 174 mg/dL (0-200); Estimated Glomerular Filt Rate > 60; Glucose 130 mg/dL (70-99); HDL Direct 74 mg/dL (40-60); LDL Cholesterol Calculated 56 mg/dL (<130); Osmolality Calculated 287 mOsm/kg (285-295); Potassium 3.9 mmol/L (3.5-5.1); Sodium 137 mmol/L (136-145); Total Protein 6.7 g/dL (6.4-8.2); Triglycerides 220 mg/dL (0-150)
[2021-09-20 11:59] LABS: CRP < 0.2 mg/dL (0.0-0.9)
[2021-09-20 12:50] LABS: Erythrocyte Sedimentation Rate 4 mm/hr (0-20)
== END 2021-09-20 11:12 | disposition home or self-care (01) ==
LOC: CHSLAB 11:17
PROVIDERS: PCP Physician Assistant
DX: Z79.899 Other long term (current) drug therapy (principal); M06.09 Rheumatoid arthritis without rheumatoid factor, multiple sites
CPT/HCPCS: 36415; 80053; 80061; 85025; 85652; 86140

== ENCOUNTER 2021-09-29 09:30 | Outpatient (CLI) | payer OTHER, SELFPAY ==
[2021-09-29 10:08] LABS: Hemoglobin A1C 5.6 % (<5.7)
== END 2021-09-29 09:31 | disposition home or self-care (01) ==
LOC: CHSLAB 09:34
PROVIDERS: PCP Physician Assistant; Visit Provider Physician Assistant
DX: R73.09 Other abnormal glucose (principal)
CPT/HCPCS: 36415; 83036

== ENCOUNTER 2021-12-19 13:22 | Outpatient (CLI) | payer OTHER, SELFPAY ==
[2021-12-19 13:42] LABS: Basophils Absolute Auto 0.04 K/mm3 (0.00-0.10); Basophils Percent Auto 0.3 % (0.0-1.0); Eosinophils Absolute Auto 0.09 K/mm3 (0.02-0.50); Eosinophils Percent Auto 0.7 % (1.0-6.0); Hematocrit 43.1 % (35.0-49.0); Hemoglobin 14.6 g/dL (12.0-15.0); Immature Granulocyte Absolute 0.08 K/mm3 (0.00-0.00); Immature Granulocyte Percent A 0.6 % (0.0-0.0); Lymphocytes Absolute Auto 1.54 K/mm3 (1.10-4.50); Lymphocytes Percent Auto 11.4 % (18.0-42.0); Mean Corpuscular HGB Conc 33.9 g/dL (32.0-36.0); Mean Corpuscular Hemoglobin 35.8 pg (27.0-31.0); Mean Corpuscular Volume 105.6 fL (78.0-102.0); Mean Platelet Volume 10.2 fl (9.2-11.8); Monocytes Absolute Auto 0.81 K/mm3 (0.10-0.90); Platelet Count Result 212 K/mm3 (150-420); Red Blood Count 4.08 M/mm3 (4.20-5.40); Red Cell Distribution Width 13.6 % (11.6-14.4); White Blood Count 13.5 K/mm3 (4.8-10.8)
[2021-12-19] MEDS: HEPARIN SODIUM LOCK FLUSH 500 UNITS/5 ML SYRINGE IV PUSH (14:09)
[2021-12-19 14:10] LABS: Alanine Aminotransferase 30 U/L (14-59); Albumin Level 3.7 g/dL (3.4-5.0); Alkaline Phosphatase 74 U/L (46-116); Anion Gap 6 mmol/L (8-16); Aspartate Amino Transferase 24 U/L (15-37); Bilirubin,Total 0.4 mg/dL (0.00-1.00); Blood Urea Nitrogen 17 mg/dL (7-18); Calcium 9.3 mg/dL (8.5-10.1); Carbon Dioxide 32 mmol/L (21-32); Chloride 101 mmol/L (98-108); Estimated Glomerular Filt Rate > 60; Glucose 103 mg/dL (70-99); Osmolality Calculated 289 mOsm/kg (285-295); Sodium 139 mmol/L (136-145); Total Protein 6.8 g/dL (6.4-8.2)
== END 2021-12-19 13:23 | disposition home or self-care (01) ==
LOC: CHSLAB 13:26 → CHSTREATRM 13:50
PROVIDERS: PCP Physician Assistant
DX: Z79.899 Other long term (current) drug therapy (principal)
CPT/HCPCS: 36415; 36592; 80053; 85025

== ENCOUNTER 2022-06-04 12:14 | Outpatient (CLI) | payer OTHER, SELFPAY ==
--- NOTE | 2022-06-04 12:38 | PC.NURSE ---
Coding Advisor called by lab to come draw blood for labs using Port a cath. SEE vascular assessment. Patient tolerated well. Safe exit of hospital.
[2022-06-04 13:00] LABS: CRP < 0.5 mg/dL (0.0-0.9)
[2022-06-06 13:04] LABS: NIL 0.01 IU/mL; Quantiferon TB Plus, 1T NEGATIVE (NEGATIVE)
[2022-06-08 03:00] LABS: Hepatitis B Surface Antigen Nonreactive (Nonreactive); Hepatitis C Signal to Cutoff 0.01 ratio (<1.00); Hepatitis C Virus Antibody Nonreactive (Nonreactive)
== END 2022-06-04 12:15 | disposition home or self-care (01) ==
LOC: CHSLAB 12:18
PROVIDERS: PCP Physician Assistant
DX: M06.09 Rheumatoid arthritis without rheumatoid factor, multiple sites (principal); Z11.59 Encounter for screening for other viral diseases
CPT/HCPCS: 36415; 36592; 86140; 86480; 86803; 87340

== ENCOUNTER 2022-08-30 09:40 | Outpatient (CLI) | payer OTHER, SELFPAY ==
[2022-08-30 10:13] LABS: Basophils Absolute Auto 0.06 K/mm3 (0.00-0.10); Basophils Percent Auto 0.5 % (0.0-1.0); Eosinophils Absolute Auto 0.14 K/mm3 (0.02-0.50); Eosinophils Percent Auto 1.1 % (1.0-6.0); Hematocrit 47.6 % (35.0-49.0); Hemoglobin 15.6 g/dL (12.0-15.0); Immature Granulocyte Absolute 0.15 K/mm3 (0.00-0.00); Immature Granulocyte Percent A 1.2 % (0.0-0.0); Lymphocytes Absolute Auto 4.01 K/mm3 (1.10-4.50); Lymphocytes Percent Auto 31.9 % (18.0-42.0); Mean Corpuscular HGB Conc 32.8 g/dL (32.0-36.0); Mean Corpuscular Hemoglobin 33.8 pg (27.0-31.0); Mean Platelet Volume 9.6 fl (9.2-11.8); Monocytes Absolute Auto 0.81 K/mm3 (0.10-0.90); Monocytes Percent Auto 6.4 % (2.0-11.0); Neutrophils Absolute Auto 7.4 K/mm3 (1.7-7.2); Neutrophils Percent Auto 58.9 % (50.0-70.0); Platelet Count Result 256 K/mm3 (150-420); Red Blood Count 4.62 M/mm3 (4.20-5.40); Red Cell Distribution Width 14.8 % (11.6-14.4); White Blood Count 12.6 K/mm3 (4.8-10.8)
[2022-08-30 10:21] LABS: Hemoglobin A1C 6.1 % (<5.7)
[2022-08-30 11:16] LABS: Alanine Aminotransferase 34 U/L (14-59); Alkaline Phosphatase 78 U/L (46-116); Anion Gap 9 mmol/L (8-16); Aspartate Amino Transferase 33 U/L (15-37); Bilirubin,Total 0.6 mg/dL (0.00-1.00); Blood Urea Nitrogen 25 mg/dL (7-18); Calcium 9.5 mg/dL (8.5-10.1); Carbon Dioxide 30 mmol/L (21-32); Chloride 100 mmol/L (98-108); Cholesterol 205 mg/dL (0-200); Estimated Glomerular Filt Rate > 60; Glucose 86 mg/dL (70-99); HDL Direct 93 mg/dL (40-60); LDL Cholesterol Calculated 93 mg/dL (<130); Osmolality Calculated 291 mOsm/kg (285-295); Potassium 4.1 mmol/L (3.5-5.1); Sodium 139 mmol/L (136-145); Thyroid Stimulating Hormone Reflex 3.51 u/IU/mL (0.36-3.74); Triglycerides 93 mg/dL (0-150)
[2022-09-02 21:44] LABS: Vitamin D 25 Hydroxy 53 ng/mL (30-100)
== END 2022-08-30 09:41 | disposition home or self-care (01) ==
LOC: CHSLAB 09:49
PROVIDERS: PCP Physician Assistant; Visit Provider Internal Medicine Rheumatology
DX: E55.9 Vitamin D deficiency, unspecified (principal); Z79.899 Other long term (current) drug therapy; I10 Essential (primary) hypertension; R73.9 Hyperglycemia, unspecified; E78.49 Other hyperlipidemia
CPT/HCPCS: 36415; 80053; 80061; 82306; 83036; 84443; 85025

== ENCOUNTER 2022-09-15 08:39 | Outpatient (CLI) | payer OTHER, SELFPAY ==
[2022-09-15 08:51] LABS: Basophils Absolute Auto 0.03 K/mm3 (0.00-0.10); Basophils Percent Auto 0.3 % (0.0-1.0); Eosinophils Absolute Auto 0.16 K/mm3 (0.02-0.50); Eosinophils Percent Auto 1.5 % (1.0-6.0); Hematocrit 43.1 % (35.0-49.0); Hemoglobin 14.2 g/dL (12.0-15.0); Immature Granulocyte Absolute 0.05 K/mm3 (0.00-0.00); Immature Granulocyte Percent A 0.5 % (0.0-0.0); Lymphocytes Absolute Auto 2.89 K/mm3 (1.10-4.50); Lymphocytes Percent Auto 27.4 % (18.0-42.0); Mean Corpuscular HGB Conc 32.9 g/dL (32.0-36.0); Mean Corpuscular Hemoglobin 34.1 pg (27.0-31.0); Mean Corpuscular Volume 103.6 fL (78.0-102.0); Mean Platelet Volume 10.2 fl (9.2-11.8); Monocytes Absolute Auto 1.04 K/mm3 (0.10-0.90); Monocytes Percent Auto 9.8 % (2.0-11.0); Neutrophils Absolute Auto 6.4 K/mm3 (1.7-7.2); Neutrophils Percent Auto 60.5 % (50.0-70.0); Platelet Count Result 227 K/mm3 (150-420); Red Blood Count 4.16 M/mm3 (4.20-5.40); Red Cell Distribution Width 14.2 % (11.6-14.4); White Blood Count 10.6 K/mm3 (4.8-10.8)
== END 2022-09-15 08:40 | disposition home or self-care (01) ==
LOC: CHSLAB 08:41
PROVIDERS: PCP Physician Assistant; Visit Provider Physician Assistant
DX: D72.829 Elevated white blood cell count, unspecified (principal)
CPT/HCPCS: 36415; 85025

== ENCOUNTER 2023-01-14 12:39 | Outpatient (CLI) | payer OTHER, SELFPAY ==
--- NOTE | ~2023-01-14 | DEXA_ITS ---
Bone Density Report Name: FLETCHER NAZARIO Age: 62 Sex: Female Ethnicity: White Date of : 1960 Indication: postmenopausal; screening for osteoporosis; height loss; hysterectomy; rheumatoid arthritis; secondary osteoporosis; Referring Provider: JURGEN, VIMAL Moore Study: Bone densitometry was performed. Exam Date: January 14, 2023 Accession number: [id number] Bone Density: Region BMD T-score Z-score Classification AP Spine(L1-L4) 1.162 1.0 2.7 Normal Femoral Neck (Left) 0.765 -0.8 0.7 Normal Total Hip (Left) 0.816 -1.0 0.1 Normal Femoral Neck (Right) 0.839 -0.1 1.4 Normal Total Hip (Right) 0.804 -1.1 0.0 Osteopenia Femoral Neck Mean 0.802 -0.4 1.0 Normal Total Hip Mean 0.810 -1.1 0.1 Osteopenia World Health Organization criteria for BMD impression classify patients as: Normal (T-score at or above -1.0), Osteopenia (T-score between -1.0 and -2.5), or Osteoporosis (T-score at or below -2.5). 10-year Fracture Risk(1): Major Osteoporotic Fracture 9.4% Hip Fracture 1.0% Reported Risk Factors: [place] (), Neck BMD=0.765, BMI=28.4, smoking, rheumatoid arthritis, secondary osteoporosis (1) FRAX(R) Version 3.08. Fracture probability calculated for an untreated patient. Fracture probability may be lower if the patient has received treatment. Clinical Information Provided by Patient: Smokes Has rheumatoid arthritis Has secondary osteoporosis Has used the following medications: Vitamin D, Calcium Has the following medical conditions: Hysterectomy Patient maximum height was 71 Menopause Age: 30 No regular weight bearing exercise Drinks caffeinated beverages Onset of menses at age 9 Number of children 2 Impression: The patient has low bone mass, based on the Right Total Hip T-score. The patient has risk factors, including: smoking. Discussion: BONE DENSITY IS LOW AT ONE OR MORE SKELETAL SITES. This patient's lowest T-score is low at one or more skeletal sites. It meets the World Health Organization's (WHO) criteria for ?low bone mass? (T-score between -1.0 and -2.5). The patient's 10-year risk of fracture as calculated by FRAX is less than the threshold where pharmacological therapy is recommended by the National Osteoporosis Foundation (NOF). However, all treatment decisions require clinical judgment and consideration of individual patient factors, including patient preferences, comorbidities, previous drug use, risk factors not captured in the FRAX model (e.g., frailty, falls, vitamin D deficiency, increased bone turnover, interval significant decline in bone density) and possible under or overestimation of fracture risk by FRAX. The patient should follow a healthful lifestyle (good nutrition with adequate calcium and vitamin D, and appropriate
== END 2023-01-14 12:40 | disposition home or self-care (01) ==
LOC: CHSIMG 12:41
PROVIDERS: PCP Physician Assistant; Visit Provider Internal Medicine Rheumatology
DX: Z79.52 Long term (current) use of systemic steroids (principal); M85.89 Other specified disorders of bone density and structure, multiple sites
CPT/HCPCS: 77080

== ENCOUNTER 2023-03-27 10:44 | Outpatient (RCR) | payer OTHER, SELFPAY ==
[2022-12-28 10:28] LABS: Basophils Absolute Auto 0.04 K/mm3 (0.00-0.10); Basophils Percent Auto 0.3 % (0.0-1.0); Eosinophils Absolute Auto 0.16 K/mm3 (0.02-0.50); Eosinophils Percent Auto 1.4 % (1.0-6.0); Hematocrit 42.1 % (35.0-49.0); Hemoglobin 14.1 g/dL (12.0-15.0); Immature Granulocyte Absolute 0.09 K/mm3 (0.00-0.00); Immature Granulocyte Percent A 0.8 % (0.0-0.0); Lymphocytes Absolute Auto 3.23 K/mm3 (1.10-4.50); Lymphocytes Percent Auto 27.3 % (18.0-42.0); Mean Corpuscular HGB Conc 33.5 g/dL (32.0-36.0); Mean Corpuscular Volume 98.6 fL (78.0-102.0); Mean Platelet Volume 9.8 fl (9.2-11.8); Monocytes Absolute Auto 0.96 K/mm3 (0.10-0.90); Monocytes Percent Auto 8.1 % (2.0-11.0); Neutrophils Absolute Auto 7.4 K/mm3 (1.7-7.2); Neutrophils Percent Auto 62.1 % (50.0-70.0); Platelet Count Result 246 K/mm3 (150-420); Red Blood Count 4.27 M/mm3 (4.20-5.40); Red Cell Distribution Width 14.9 % (11.6-14.4); White Blood Count 11.9 K/mm3 (4.8-10.8)
[2022-12-28 11:22] LABS: Alanine Aminotransferase 30 U/L (14-59); Albumin Level 3.5 g/dL (3.4-5.0); Alkaline Phosphatase 76 U/L (46-116); Anion Gap 10 mmol/L (8-16); Aspartate Amino Transferase 19 U/L (15-37); Bilirubin,Total 0.4 mg/dL (0.00-1.00); Blood Urea Nitrogen 29 mg/dL (7-18); Calcium 9.1 mg/dL (8.5-10.1); Carbon Dioxide 28 mmol/L (21-32); Chloride 103 mmol/L (98-108); Estimated Glomerular Filt Rate > 60; Glucose 84 mg/dL (70-99); Osmolality Calculated 296 mOsm/kg (285-295); Potassium 4.1 mmol/L (3.5-5.1); Sodium 141 mmol/L (136-145); Total Protein 6.2 g/dL (6.4-8.2)
[2023-03-27 11:09] LABS: Basophils Absolute Auto 0.06 K/mm3 (0.00-0.10); Basophils Percent Auto 0.4 % (0.0-1.0); Eosinophils Absolute Auto 0.15 K/mm3 (0.02-0.50); Eosinophils Percent Auto 0.9 % (1.0-6.0); Hematocrit 45.6 % (35.0-49.0); Hemoglobin 15.3 g/dL (12.0-15.0); Immature Granulocyte Absolute 0.22 K/mm3 (0.00-0.00); Immature Granulocyte Percent A 1.4 % (0.0-0.0); Lymphocytes Absolute Auto 3.05 K/mm3 (1.10-4.50); Lymphocytes Percent Auto 19.1 % (18.0-42.0); Mean Corpuscular HGB Conc 33.6 g/dL (32.0-36.0); Mean Corpuscular Hemoglobin 33.3 pg (27.0-31.0); Mean Corpuscular Volume 99.3 fL (78.0-102.0); Monocytes Absolute Auto 1.16 K/mm3 (0.10-0.90); Monocytes Percent Auto 7.3 % (2.0-11.0); Neutrophils Absolute Auto 11.3 K/mm3 (1.7-7.2); Neutrophils Percent Auto 70.9 % (50.0-70.0); Platelet Count Result 259 K/mm3 (150-420); Red Blood Count 4.59 M/mm3 (4.20-5.40); Red Cell Distribution Width 15.2 % (11.6-14.4)
[2023-03-27 12:13] LABS: Alanine Aminotransferase 36 U/L (14-59); Albumin Level 4.2 g/dL (3.4-5.0); Alkaline Phosphatase 73 U/L (46-116); Anion Gap 10 mmol/L (8-16); Aspartate Amino Transferase 24 U/L (15-37); Bilirubin,Total 0.7 mg/dL (0.00-1.00); Blood Urea Nitrogen 19 mg/dL (7-18); Calcium 9.2 mg/dL (8.5-10.1); Carbon Dioxide 28 mmol/L (21-32); Chloride 96 mmol/L (98-108); Estimated Glomerular Filt Rate 49; Glucose 99 mg/dL (70-99); Osmolality Calculated 280 mOsm/kg (285-295); Potassium 4.3 mmol/L (3.5-5.1); Sodium 134 mmol/L (136-145)
== END 2023-03-28 23:59 | disposition home or self-care (01) ==
LOC: CHSLAB 10:44
PROVIDERS: PCP Physician Assistant; Visit Provider Internal Medicine Rheumatology
DX: Z51.81 Encounter for therapeutic drug level monitoring (principal); Z79.899 Other long term (current) drug therapy
CPT/HCPCS: 36415; 36591; 80053; 85025

== ENCOUNTER 2023-07-15 10:34 | Outpatient (CLI) | payer OTHER, SELFPAY ==
[2023-07-15 11:15] LABS: Basophils Absolute Auto 0.04 K/mm3 (0.00-0.10); Basophils Percent Auto 0.4 % (0.0-1.0); Eosinophils Absolute Auto 0.25 K/mm3 (0.02-0.50); Eosinophils Percent Auto 2.5 % (1.0-6.0); Hematocrit 43.1 % (35.0-49.0); Hemoglobin 14.2 g/dL (12.0-15.0); Immature Granulocyte Absolute 0.07 K/mm3 (0.00-0.00); Immature Granulocyte Percent A 0.7 % (0.0-0.0); Lymphocytes Absolute Auto 3.04 K/mm3 (1.10-4.50); Lymphocytes Percent Auto 30.4 % (18.0-42.0); Mean Corpuscular HGB Conc 32.9 g/dL (32-36); Mean Corpuscular Hemoglobin 33.1 pg (27.0-31.0); Mean Corpuscular Volume 100.5 fL (78.0-102.0); Mean Platelet Volume 10.2 fl (9.2-11.8); Monocytes Absolute Auto 0.76 K/mm3 (0.10-0.90); Monocytes Percent Auto 7.6 % (2.0-11.0); Neutrophils Absolute Auto 5.83 K/mm3 (1.70-7.20); Neutrophils Percent Auto 58.4 % (50.0-70.0); Platelet Count Result 210 K/mm3 (150-420); Red Blood Count 4.29 M/mm3 (4.20-5.40); Red Cell Distribution Width 14.6 % (11.6-14.4)
[2023-07-15 11:41] LABS: Anion Gap 7 mmol/L (4-12); Blood Urea Nitrogen 21 mg/dL (7-18); Carbon Dioxide 33 mmol/L (21-32); Chloride 102 mmol/L (98-108); Potassium 3.9 mmol/L (3.5-5.1); Sodium 142 mmol/L (136-145)
[2023-07-15 11:42] LABS: Alanine Aminotransferase 37 U/L (14-59); Albumin Level 3.5 g/dL (3.4-5.0); Alkaline Phosphatase 63 U/L (46-116); Aspartate Amino Transferase 26 U/L (15-37); Bilirubin,Total 0.5 mg/dL (0.00-1.00); Calcium 9.3 mg/dL (8.5-10.1); Estimated Glomerular Filt Rate > 60; Glucose 76 mg/dL (70-99); Osmolality Calculated 296 mOsm/kg (285-295); Total Protein 6.2 g/dL (6.4-8.2)
== END 2023-07-15 10:35 | disposition home or self-care (01) ==
LOC: CHSLAB 10:39
PROVIDERS: PCP Nurse Practitioner Family; Visit Provider Internal Medicine Rheumatology
DX: Z79.899 Other long term (current) drug therapy (principal); Z79.622 Long term (current) use of Janus kinase inhibitor
CPT/HCPCS: 36415; 80053; 85025

== ENCOUNTER 2024-03-23 08:56 | Outpatient (CLI) | payer OTHER, SELFPAY ==
[2024-03-23 09:25] LABS: Basophils Absolute Auto 0.04 K/mm3 (0.00-0.10); Basophils Percent Auto 0.4 % (0.0-1.0); Eosinophils Absolute Auto 0.13 K/mm3 (0.02-0.50); Eosinophils Percent Auto 1.3 % (1.0-6.0); Hematocrit 40.2 % (35.0-49.0); Hemoglobin 13.3 g/dL (12.0-15.0); Immature Granulocyte Absolute 0.06 K/mm3 (0.00-0.00); Immature Granulocyte Percent A 0.6 % (0.0-0.0); Lymphocytes Absolute Auto 3.19 K/mm3 (1.10-4.50); Lymphocytes Percent Auto 31.8 % (18.0-42.0); Mean Corpuscular HGB Conc 33.1 g/dL (32-36); Mean Corpuscular Hemoglobin 32.8 pg (27.0-31.0); Neutrophils Absolute Auto 5.82 K/mm3 (1.70-7.20); Neutrophils Percent Auto 57.9 % (50.0-70.0); Platelet Count Result 303 K/mm3 (150-420); Red Blood Count 4.06 M/mm3 (4.20-5.40); Red Cell Distribution Width 15.1 % (11.6-14.4)
[2024-03-23 10:08] LABS: Alanine Aminotransferase 36 U/L (14-59); Albumin Level 3.8 g/dL (3.4-5.0); Alkaline Phosphatase 62 U/L (46-116); Anion Gap 11 mmol/L (4-12); Aspartate Amino Transferase 28 U/L (15-37); Bilirubin,Total 0.7 mg/dL (0.00-1.00); Blood Urea Nitrogen 19 mg/dL (7-18); Calcium 9.1 mg/dL (8.5-10.1); Carbon Dioxide 29 mmol/L (21-32); Chloride 101 mmol/L (98-108); Estimated Glomerular Filt Rate 56; Glucose 85 mg/dL (70-99); Osmolality Calculated 293 mOsm/kg (285-295); Potassium 3.9 mmol/L (3.5-5.1); Sodium 141 mmol/L (136-145); Total Protein 6.3 g/dL (6.4-8.2)
== END 2024-03-23 08:57 | disposition home or self-care (01) ==
LOC: CHSLAB 08:59
PROVIDERS: PCP Nurse Practitioner Family; Visit Provider Internal Medicine Rheumatology
DX: Z79.622 Long term (current) use of Janus kinase inhibitor (principal)
CPT/HCPCS: 36415; 80053; 85025

== ENCOUNTER 2024-05-08 11:23 | Outpatient (CLI) | payer MEDICARE, SELFPAY ==
[2024-05-08 11:47] LABS: Basophils Absolute Auto 0.06 K/mm3 (0.00-0.10); Basophils Percent Auto 0.4 % (0.0-1.0); Eosinophils Absolute Auto 0.09 K/mm3 (0.02-0.50); Eosinophils Percent Auto 0.6 % (1.0-6.0); Hemoglobin 14.5 g/dL (11.7-13.8); Immature Granulocyte Absolute 0.12 K/mm3 (0.00-0.00); Immature Granulocyte Percent A 0.9 % (0.0-0.0); Lymphocytes Absolute Auto 1.01 K/mm3 (1.10-4.50); Lymphocytes Percent Auto 7.3 % (18.0-42.0); Mean Corpuscular HGB Conc 32.2 g/dL (32-36); Mean Corpuscular Hemoglobin 33.4 pg (27.0-31.0); Mean Corpuscular Volume 103.7 fL (78.0-102.0); Mean Platelet Volume 10.7 fl (9.2-11.8); Monocytes Absolute Auto 0.59 K/mm3 (0.10-0.90); Monocytes Percent Auto 4.3 % (2.0-11.0); Neutrophils Absolute Auto 11.99 K/mm3 (1.70-7.20); Neutrophils Percent Auto 86.5 % (50.0-70.0); Platelet Count Result 269 K/mm3 (150-420); Red Blood Count 4.34 M/mm3 (4.20-5.40); Red Cell Distribution Width 15.8 % (11.6-14.4); White Blood Count 13.9 K/mm3 (4.8-10.8)
[2024-05-08 12:36] LABS: Alanine Aminotransferase 41 U/L (14-59); Albumin Level 3.6 g/dL (3.4-5.0); Alkaline Phosphatase 89 U/L (46-116); Anion Gap 12 mmol/L (4-12); Aspartate Amino Transferase 51 U/L (15-37); Bilirubin,Total 0.6 mg/dL (0.00-1.00); Blood Urea Nitrogen 25 mg/dL (7-18); Calcium 9.3 mg/dL (8.5-10.1); Carbon Dioxide 26 mmol/L (21-32); Chloride 100 mmol/L (98-108); Estimated Glomerular Filt Rate > 60; Glucose 133 mg/dL (70-99); Osmolality Calculated 292 mOsm/kg (285-295); Potassium 5.2 mmol/L (3.5-5.1); Sodium 138 mmol/L (136-145); Total Protein 6.8 g/dL (6.4-8.2)
== END 2024-05-08 11:24 | disposition home or self-care (01) ==
LOC: CHSLAB 11:26
PROVIDERS: PCP Nurse Practitioner Family; Visit Provider Internal Medicine Rheumatology
DX: Z79.622 Long term (current) use of Janus kinase inhibitor (principal)
CPT/HCPCS: 36415; 80053; 85025

== ENCOUNTER 2024-06-03 13:57 | Outpatient (CLI) | payer MEDICARE, SELFPAY ==
--- NOTE | ~2024-06-03 | CT_ITS ---
EXAMINATION:CT lung screening DATE: 06/03/2024 14:53 INDICATION: Personal history of nicotine dependence. Current smoker with 50 pack year history. TECHNIQUE: Computed tomography (CT) of the chest was performed without intravenous contrast. Automate d exposure control and iterative reconstruction technique were employed. The dose-length product (DLP ) was 89.71 mGy-cm. COMPARISON: Chest CT 04/24/2019 FINDINGS: There is a 4 mm groundglass nodule in right upper lobe. There is mild atelectasis bilateral ly. Calcified bilateral lung nodules are consistent with old granulomatous disease. No pleural effusi on. The heart size is normal. There are calcifications aortic valve. No pericardial effusion. There i s a right internal jugular port with tip at superior cavoatrial junction. There is a total right shou lder arthroplasty. There is severe thoracic spondylosis. There is mild chronic anterior wedging of mu ltiple vertebral bodies. IMPRESSION: 1. Lung-RADS category 2: Benign appearance or behavior. Continue annual screening with noncontrast lo w-dose chest CT in 12 months. Reviewed, dictated and finalized at location A. IMPRESSION: 1. Lung-RADS category 2: Benign appearance or behavior. Continue annual screeni ng with noncontrast low-dose chest CT in 12 months.
--- NOTE | ~2024-06-03 | MM_ITS ---
EXAMINATION: MM screening [facility] BI w demetris HISTORY: Screening TECHNIQUE: Craniocaudal and mediolateral oblique 3-D tomosynthesis images were obtained and synthetic 2-D images were generated. CAD analysis was submitted and interpreted. COMPARISON: 04/17/2018 and dating back to 12/02/2012 BREAST PARENCHYMAL COMPOSITION: There are scattered areas of fibroglandular density. FINDINGS: Bulky calcifications are detected bilaterally, increasing in quantity since 2019 and morpho logically benign in appearance. Stable parenchymal pattern without suspicious microcalcifications, architectural distortion, discrete masses or significant asymmetry. IMPRESSION: 1. No mammographic evidence of malignancy. 2. Recommend routine screening mammography in one year. BI-RADS Category 2: Benign finding(s). Reviewed, dictated and finalized at location A.
--- OUTSIDE RECORDS SUMMARY | 2024-06-03 15:10 | XMS_ITS | Clinical Summary ---
Author Organization [facility] Address [address] [place] [address] Care Team Providers Care Arts Manager Name Role Phone Errol Babb MD Unavailable Dennise Rose PA-C Primary Care Provider [phone]- [phone] Marya Herring ORTHOPEDIC PHYSICIAN ASSISTANT-SHELLFISH BED WORKER Unavailable + Source Comments [facility],non-owned Affiliates and Associated Physician Practices is amultiple site organization consisting of ambulatory clinics and hospital sitesin [place], [place]. This disclosure is being madepursuant to the Care Everywhere program and may not contain all information available regarding this patient. Last updated 17.[facility] Allergies Active Allergy Reactions Criticality Noted Date Comments Levofloxacin Other High 07/29/2017 Other reaction(s): Hives Sulfa Drugs Hematologic High 10/28/2018 Other reaction(s): Hives Sulfamethoxazole W-Trimethoprim Other High 04/26/2016 Causes sores all over body Causes sores all over body Medications * Be aware that medications may not be up to date on this document. Alwaysverify current medications with the patient. Medication Sig Dispensed Refills Start Date End Date Status Multiple Vitamins-Minerals (MULTIVITAMIN ADULT PO) Take 1 tablet by mouth once daily Active Calcium Carb-Cholecalcifer ol (CALCIUM 1000 + D PO) Take 1 tablet by mouth as directed Active cyanocobalamin (VITAMIN B-12) 500 MCG tablet Take 1 (one) tablet by mouth once daily Active vitamin C (ASCORBIC ACID) 1000 MG tablet Take 1 (one) tablet by mouth once daily Active Potassium 99 MG tablet Take 1 (one) tablet by mouth once daily Active albuterol HFA (PROVENTIL; VENTOLIN; PROAIR) 108 (90 Base) MCG/ACT inhaler Inhale 2 (two) puffs by mouth every 6 hours as needed Active traZODone (DESYREL) 100 MG tablet Take 1 (one) tablet by mouth at bedtime 0 Active SYMBICORT 160-4.5 MCG/ACT inhaler Inhale 2 (two) puffs by mouth 2 times daily 1 Active vitamin D, ergocalciferol, (DRISDOL) 1.25 MG (62978 UT) capsule Take 1 (one) capsule by mouth as directed 1 Active ezetimibe (ZETIA) 10 MG tablet Take 1 (one) tablet by mouth once daily 1 Active atorvastatin (Lipitor) 40 MG tablet Take 1 (one) tablet by mouth once daily 2 Active acyclovir (Zovirax) 400 MG tablet Take 1 (one) tablet by mouth 2 times daily 3 Active cyclobenzaprine (Flexeril) 10 MG tablet Take 1 (one) tablet by mouth 3 times daily as needed 3 Active lisinopril-hydroCH LOROthiazide (Prinzide; Zestoretic) 20-25 MG tablet Take 1 (one) tablet by mouth once daily 3 Active heparin lock flush 10 UNIT/ML injectionIndicatio ns:Port-A-Cath in place 1 mL by Intracatheter route as needed (Routine maintenance indwelling venous port care) 1 mL 11 4 Active baricitinib (Olumiant) 2 MG tabletIndications: Rheumatoid Arthritis Take 1 (one) tablet by mouth once daily Reasons: Rheumatoid Arthritis 30 tablet 5 Active predniSONE (Deltasone) 5 MG tabletIndications: Rheumatoid Arthritis Take 1 (one) tablet by mouth every morning Reasons: Rheumatoid Arthritis 90 tablet 5 Active DULoxetine (Cymbalta) 60 MG capsuleIndications :Fibromyalgia Syndrome,Musculosk eletal Pain Take 1 (one) capsule by mouth once daily Reasons: Fibromyalgia Syndrome, Musculoskeletal Pain 90 capsule 3 5 Active pregabalin (Lyrica) 100 MG capsuleIndications :Fibromyalgia Syndrome,Chronic lumbar spinal pain. Take 1 (one) capsule by mouth 3 times daily For chronic lumbar spinal pain. Reasons: Fibromyalgia Syndrome, Chronic lumbar spinal pain. 90 capsule 5 5 Active DULoxetine (Cymbalta) 60 MG capsuleIndications :Generalized osteoarthritis of multiple sites,Fibromyalgia syndrome Take 1 (one) capsule by mouth once daily 90 capsule 4 05/29/19 25 Discontinu ed(Reorder ) predniSONE (Deltasone) 5 MG tabletIndications: Rheumatoid Arthritis Take 1 (one) tablet by mouth every morning Reasons: Rheumatoid Arthritis 90 tablet 4 05/19/19 25 Discontinu ed(Reorder ) pregabalin (Lyrica) 100 MG capsuleIndications :Chronic bilateral low back pain with bilateral sciatica Take 1 (one) capsule by mouth 3 times daily For chronic lumbar spinal pain. 90 capsule 1 5 05/29/19 25 Discontinu ed(Reorder ) Active Problems Problem Noted Date Diagnosed Date Primary osteoarthritis of both hands 11/28/2023 Overview (11/28/2023): Examination findings consistent with 1st [facility], scattered PIP and DIP changes with both Shana's and Heberden nodes. Generalized osteoarthritis of multiple sites Overview (01/28/2023): Currently receiving both duloxetine 60 mg q.day and pregabalin 100 mg t.i.d. and awaiting spinal pain management consultation. Low back pain 11/28/2022 01/03/2023 Neurogenic claudication 11/22/2022 Chronic bilateral low back pain with bilateral s ciatica 09/04/2022 Overview (09/04/2022): Suspect degenerative mechanical LBP although uncertain if she is experiencing true sciatica. Check baseline lumbar x-rays and refer to spinal specialist. Chronic hip pain, bilateral 06/20/2021 Overview (06/20/2021): Increasing bilateral hip pain. History of RA on low dose prednisone. R/o DJD vs osteonecrosis. Check x-rays today. Rheumatoid arthritis, seronegative, multiple sit es 03/22/2021 History of rheumatoid arthritis 03/22/2021 Assessment & Plan (03/22/2021 9:14 AM FRONT DESK ASSOCIATE): Previous diagnosis of s eronegative rheumatoid arthritis however current examination findings strongly suggest changes of osteoarthritis noted in the hands and feet without any evidence of active synovitis now on a combination of olulmient, methotrexate and prednisone. I do not have access to her previous x-rays and suggested that we follow-up bilateral hand films and compared to her 2019 report for further review purposes. Previous C-reactive protein measurements have been normal as well which does raise some consideration of possible chronic noninflammatory arthritis such as osteoarthritis rather than rheumatoid disease. Based upon the intensity of her treatment and potential risks inherent with this combination DMARD therapy I do believe it is important to better define her underlying arthropathy the best provide long-term additional treatment recommendations. In the meanwhile I have suggested that she decrease her methotrexate dose down to 7.5 mg Q 7 days and will clinically reassess again in 3 months. director long term care systemic steroid user 03/22/2021 Assessment & Plan (06/20/2021 9:05 AM CDT): Will need repeated routine monitoring lab including CBC with differential and CMP for continued use of methotrexate and Olumiant. Assessment & Plan (03/22/2021 9:16 AM FRONT DESK ASSOCIATE): On a combination of methotrexate and Olumient as kinase inhibitor which does require continued close lab monitoring specially for any developing hematologic or hepatotoxicity effects from this combination DMARD treatment plan. Additionally I reviewed the potential immune suppressive effects of Olumient which can lead to potentially severe in even life-threatening infection complications as well as rare reported thrombotic events including deep venous thrombosis, pulmonary embolism, stroke or myocardial infarction. If she develops any concerning symptoms should seek immediate emergency department evaluation. Mild intermittent asthma without complication S/P shoulder surgery 03/29/2020 Anxiety 03/01/2020 Benign essential hypertension 03/01/2020 Chronic depression 03/01/2020 Fibromyalgia syndrome 03/01/2020 Assessment & Plan (03/22/2021 9:18 AM FRONT DESK ASSOCIATE): She requested additional refills of gabapentin which she takes for presumable f ibromyalgia . I did discuss that I do not provide long-term treatment for fibromyalgia is a noninflammatory chronic pain syndrome I probably should seek further management by her primary care provider for this type of condition. I will provide limited refills for 6 months until she can get back with her primary care provider. Her also asked about additional stronger pain medication and I deferred that discussion to her primary care provider but also indicated I would strongly discourage the use of narcotic medication for fibromyalgia or osteoarthritis and would try to seek non opiate pain medication options including possible trial of duloxetine. Gastroesophageal reflux disease 03/01/2020 Hyperglycemia 03/01/2020 Smoker 03/01/2020 Verruca vulgaris 03/01/2020 Viral warts 03/01/2020 Smoker 03/01/2020 Overview (01/12/2021): Last Assessment & Plan: encouraged cessation Hypertension 11/30/2019 Other hyperlipidemia 11/30/2019 Other insomnia 11/30/2019 Hypertension 11/30/2019 Overview (01/12/2021): Last Assessment & Plan: Blood pressure is well controlled with no changes in regimen at this time Encouraged to continue to monitor at home and log and call office with any concerns in future. Right rotator cuff tear arthropathy 10/20/2019 Tendinopathy of right rotator cuff 08/24/2019 Vitamin D deficiency 10/16/2018 Verruca plantaris 04/26/2016 Neuropathy of foot, left Resolved Problems Problem Noted Date Diagnosed Date Resolved Date High risk medications (not a nticoagulants) long-term use (Olumiant Janus kinase inhibitor) 09/04/2022 01/28/2023 Overview (09/04/2022): Most recent outside lab testing dated 08/30/2022 without evidence of hematologic or hepatotoxicity effects. Continue routine outside lab monitor Q 12 weeks. High risk medications (not a nticoagulants) long-term use w/ methotrexate 7.5 mg p.o. Q 7 days and Olumiant 2 mg q.day as a Janus kinase inhibitor 09/19/2021 06/04/2022 Overview (09/19/2021): Await routine Q 12 week lab monitoring testing as ordered to be collected later today for full assessment. Preoperative clearance 01/06/202103/22 Overview (01/12/2021): Last Assessment & Plan: EKG reviewed with no change from previous - SR with RBBB - No anginal symptoms Known risk for CVD - HTN, HLD, nicotine dependence intermediate risk for planned procedure Acute bronchitis 03/01/2020 06/20/2021 Cellulitis of finger 03/01/2020 022 Fracture of foot 03/01/2020 06/20/2021 Need for prophylactic vaccin ation against Streptococcus pneumoniae (pneumococcus) and influenza 03/01/2020 01/28/2023 Traumatic blister of foot 03/01/2020 Rheumatoid arthritis 09/25/2016 022 Septic shock 09/25/2016 03/22/2021 Pain in left foot 04/26/2016 06/20/2021 Encounters Date Type Department Care Team Description 05/28/2024 8:40 AM CDT Office Visit [facility] - Rheumatology [address] [place] [address], [address] [place] [phone] Luis Trevino DO Rheumatoid arthritis, seronegative, multiple sites (Primary Dx); Generalized osteoarthritis of multiple sites; Fibromyalgia syndrome; Chronic bilateral low back pain with bilateral sciatica; Elevated AST (SGOT) 05/18/2024 Refill [facility] - Rheumatology [address] [place] [address], [address] [place] [phone] Luis Trevino DO MEDICATION REFILL 05/13/2024 Orders Only [facility] Rheumatology [address] [place] [address], [address] [place] [phone] Luis Trveino DO director long term care (current) use of janus kinase inhibitor ; Elevated liver enzymes 05/08/2024 Orders Only [facility] - Rheumatology [address] [place] [address], [address] [place] [address] Luis Trevino, DO jail (current) use of janus kinase inhibitor 03/25/2024 Telephone [facility] - Rheumatology [address], [address] [place] [address] Luis Trevino, DO Medication Prior Auth Request 03/23/2024 Refill [facility] - Rheumatology [address] [place], [place] [address], [address] [place] [address] Luis Trevino, DO MEDICATION REFILL 03/16/2024 Refill [facility] - Rheumatology [address] [place] [address] Luis Trevino, DO MEDICATION REFILL from Last 3 Months Immunizations Name Administration Dates Next Due Allergen [employer] primary monoval ent 12+ yr 0.3mL Purple cap 10/24/2020,06/24/2020,05/27/2020 FLU VACCINE QUAD IIV4 SPLIT 0.25 ML IM 02/06/2016,02/06/2016 FLU VACCINE TRI IIV3 SPLIT P F IM (FLUVIRIN) 02/17/2014,02/17/2014,01/05/2013,2012 INFLUENZA VACCINE 01/09/2019,01/09/2019 INFLUENZA VACCINE, HIGH-DOSE , QUADR. (FLUZONE HIGH-DOSE QUADRIVALENT; 65Y+), 0.7 ML (HD-IIV4) 01/20/2015,01/20/2015,12/26/2011,2011,01/01/2011,01/01/2011,12/14/2009,1 ,12/03/2008,12/03/2008, 008,01/14/2008,01/04/2007,01/04/2007 INFLUENZA VACCINE, QUADR. (F LUZONE; FLULAVAL; FLUARIX; AFLURIA QUADRIVALENT; 6MO+), 0.5 ML (IIV4) 01/25/2022,12/12/2020,11/30/2019,2018,12/20/2017,12/20/2017,02/04/2017,1 04/06/2016 PNEUMOCOCCAL PPSV23 01/28/2009,01/28/2009 Pneumococcal Pcv13 Conj 04/21/2018 TD (ADULT), 5 LF TETANUS TOX OID, ADSORBED, PF 07/15/2003 TD VACCINE 07/15/2003,07/15/2003,07/15/2003 TDAP (7yrs+) 04/21/2018 Td (Adult), 2 Lf Tetanus Tox oid, Adsorbed, Pf 07/15/2003 Zoster Hzv Vacc Recombinant Inj Im 04/16,04/16/2018,01/08/2018,2017 Social History Tobacco Use Types Packs/Day Years Used Date Smoking Tobacco: Some Days Smokeless Tobacco: Current Tobacco Cessation:Ready to Q uit: Not Asked; Counseling Given: Not Answered Alcohol Use Standard Drinks/Week Comments Yes 0 (1 standard drink = 0.6 oz pur e alcohol) AUDIT-C Answer Date Recorded Frequency of Alcohol Consumption Not on file 02/15/2020 Average Number of Drinks Not on file 020 Q3: How often do you have si x or more drinks on one occasion? Less than monthly 02/15/2020 PHQ-2 Answer Date Recorded Patient Health Questionnaire-2 Score 0 05/28/2024 Sex and Gender Information Value Date Recorded Sex Assigned at Not on file Gender Identity Not on file Sexual Orientation Not on file Last Filed Vital Signs Vital Sign Reading Time Taken Comments Blood Pressure 138/80 05/28/2024 8:40 AM CDT Pulse 86 05/28/2024 8:40 AM CDT Temperature 36.7 C (98 F) 05/28/2024 8:40 AM CDT Respiratory Rate 16 05/28/2024 8:40 AM CDT Oxygen Saturation 97% 05/28/2024 8:40 AM CDT Inhaled Oxygen Concentration - - Weight 80.7 kg (178 lb) 05/28/2024 8:40 AM CDT Height 175.3 cm (5' 9 ) 11/28/2023 8:43 AM CDT Body Mass Index 26.29 11/28/2023 8:43 AM CDT Plan of Treatment Upcoming Encounters Date Type Department Care Team (Late st Contact Info) Description 11/26/2024 10:00 AM CDT Office Visit [facility] - Rheumatology [address], [address] [place] [address] Luis Trevino DO [address] [place] [address] Health Maintenance Due Date Last Done Comments COLON MONITORING 1959 COLONOSCOPY - COLON CA SCREENING 1959 CT COLONOGRAPHY - COLON CA SCREENING 1959 FIT - COLON CA SCREENING 1959 FLEX SIG - COLON CA SCREENING 1959 HIV SCREENING 1974 HEPATITIS C SCREENING 03/19/1977 Respiratory Syncytial Virus (RSV) Vaccine Pt: or over 60 yrs (1 - Risk 60-74 years 1-dose series) 2019 PNEUMOCOCCAL VACCINE 50+ (3 of 3 - PCV20 or PCV21) 04/21/2023 04/21/2018, 01/28/2009, 01/28/2009 COVID-19 VACCINE ( season) 2023 01/25/2022, 07/06/2021, 10/24/2020, Additional history exists MEDICARE AWV CALENDAR YEAR 2024 MAMMOGRAM 01/02/2025 01/02/2023, 12/10, 12/20/2021, Additional history exists COLOGUARD (AGES 45-75) - COLON CA SCREENING 09/03/2025 09/03/2022, 04/29/2019 Colorectal Cancer Screening 09/03/2025 PAP SMEAR 09/27/2025 09/27/2022 SCREENING FOR DIABETES 05/08/2027 , 03/23/2024, 12/28/2022, Additional history exists DTAP/TDAP/TD VACCINES (7 - Td or Tdap) 04/21/2028 04/21/2018, 07/15/2003, 07/15/2003, Additional history exists ZOSTER VACCINE Completed 04/16/2018, 08/2018, 01/08/2018, Additional history exists BONE DENSITY TESTING Completed 01/14/2023, 01/03/20 19 INFLUENZA VACCINE Completed 12/03/2023, , 01/25/2022, Additional history exists DEPRESSION SCREENING Completed 05/28/2024 HEPATITIS B VACCINE Aged Out No longe r eligible based on patient's age to complete this topic HIB VACCINE Aged Out No longer eligi ble based on patient's age to complete this topic HPV VACCINE Aged Out No longer eligi ble based on patient's age to complete this topic MENINGOCOCCAL (Group B) VACCINE SHARED DECISION-MAKING Aged Out No longer eligible based on patient's age to complete this topic MENINGOCOCCAL GROUPS A/C/Y/W VACCINE Aged Out No longer eligible based on patient's age to complete this topic Medical Devices Implanted Type Area Sole Stainer Device Identifier Shelf Expiration Date Model / Serial / Lot Baseplate Implanted:Qty: 1 on 02/15/2020 by Nitin Zarate MD at [facility] [place] Right: Shoulder [employer] 10/08/2024 AR-9560-24- 2 / / [id number] Description:CC Glenosphere Implanted:Qty: 1 on 02/15/2020 by Nitin Zarate MD at [facility] [place] Right: Shoulder [employer] 01/09/2024 AR-9564-243 6-LAT / / [id number] Description:CC Central Screw Implanted:Qty: 1 on 02/15/2020 by Nitin Zarate MD at [facility] [place] Right: Shoulder [employer] 09/08/2023 AR-9561-30S / / [id number] Description:CC Peripheral Screw Implanted:Qty: 3 on 02/15/2020 by Nitin Zarate MD at [facility] [place] Right: Shoulder [employer] 03/10/2024 AR-9563-24 / / [id number] Description:CC Peripheral Screw, Locking Implanted:Qty: 1 on 02/15/2020 by Nitin Zarate MD at [facility] [place] Right: Shoulder [employer] 04/10/2024 AR-9563-20 / / [id number] Description:CC Suturecup Implanted:Qty: 1 on 02/15/2020 by Nitin Zarate MD at [facility] [place] Right: Shoulder [employer] 07/08/2024 AR-9502F-36 MILL OILER / / [id number] Description:CC Humeral Stem Implanted:Qty: 1 on 02/15/2020 by Nitin Zarate MD at [facility] [place] Right: Shoulder [employer] 11/09/2023 AR-9501-09P / / [id number] Description:CC Ins Hum 36mm Univers Revers +3mm Sm Implanted:Qty: 1 on 02/15/2020 by Nitin Zarate MD at [facility] [place] Right: Shoulder [employer] 07/08/2024 AR-9503S-03 / / [id number] Description:AK Sys Shld Tot Arthroplast Rev Implanted:Qty: 1 on 02/15/2020 by Nitin Zarate MD at [facility] [place] Right: Shoulder [employer] S4 ARTHREX / / Glenosphere, 39+4 Lat/ 24 Implanted:Qty: 1 on 01/10/2021 by Nitin Zarate MD at [facility] Right: Shoulder [employer] 08/08/2024 AR-9564-243 9-LAT / / [id number] Constrained Combo Humeral Insert, 36 +6c/ 39 Implanted:Qty: 1 on 01/10/2021 by Nitin Zarate MD at [facility] Right: Shoulder [employer] 03/10/2024 AR-9503-363 9-6C / / [id number] Procedures Procedure Name Priority Date/Time Associated Diagnosis Comments COMPREHENSIVE METABOLIC PANEL Routine 05/08/2024 director long term care (current) use of janus kinase inhibitor CBC W AUTO DIFFERENTIAL Routine 05/08/2024 jail (current) use of janus kinase inhibitor COMPREHENSIVE METABOLIC PANEL Routine 03/23/2024 director long term care (current) use of janus kinase inhibitor CBC W AUTO DIFFERENTIAL Routine 03/23/2024 director long term care (current) use of janus kinase inhibitor DEXA BONE DENSITY AXIAL SKELETON Routine 01/14/2023 jail systemic steroid user from Last 3 Months or Most Recently Relevant to Health Maintenance Results * CBC WITH DIFFERENTIAL (05/08/2024) Only the most recent of2 resultswithin the time period is included. Blood BLOOD SPECIMEN / Unknown Luis Trevino DO LAB - HEMATOLOGY ORD ERABLES Performing Organization Address City/[facility]/ZIP Co de Phone Number OTHER LAB * COMPREHENSIVE METABOLIC PANEL (05/08/2024) Only the most recent of2 resultswithin the time period is included. Blood BLOOD SPECIMEN / Unknown Luis Trevino DO LAB - CHEMISTRY ORDE RABLES Performing Organization Address [facility] Co de Phone Number OTHER LAB * DEXA BONE DENSITY AXIAL SKELETON (01/14/2023) Anatomical Region Laterality Modality Other Luis Tervino DO DEXA ORDERABLES from Last 3 Months or Most Recently Relevant to Health Maintenance Care Teams Arts Manager Relationship Specialty Start Date End Date Dennise Rose PA-C [address] [place] [address] PCP - General Physician Medical Center Manager 12/22/20 Errol Babb MD Primary Care Provider Internal Medicine 12/18/19 Marya Herring APRN-GALE [address] [place] [phone] Nurse Practitioner Family 01/28/23
--- OUTSIDE RECORDS SUMMARY | 2024-06-03 15:10 | XMS_ITS | Encounter Summary ---
Author Organization [facility] Address [address] [place] [address] Care Team Providers Care Manager Respiratory Care Name Role Phone Errol Babb MD Unavailable Dennise Rose PA-C Primary Care Provider [phone]- [phone] NimaMarya pichardo SPORTS MEDICINE SPECIALIST-HUMAN RESOURCES COMMUNICATIONS MANAGER Unavailable + Marya Allred Unavailable Nima, Marya Artem SPORTS MEDICINE SPECIALIST-HUMAN RESOURCES COMMUNICATIONS MANAGER Unavailable + Encounter Details Date Type Department Care Team (Late st Contact Info) Description 12/18/2021 Telephone [facility] - Rheumatology [address] [facility] [address] [place] [address] Luis Trevino DO [address] [place] [address] Social History Tobacco Use Types Packs/Day Years Used Date Smoking Tobacco: Some Days Smokeless Tobacco: Current Alcohol Use Standard Drinks/Week Comments Yes 0 (1 standard drink = 0.6 oz pur e alcohol) AUDIT-C Answer Date Recorded Frequency of Alcohol Consumption Not on file 02/15/2020 Average Number of Drinks Not on file 020 Q3: How often do you have si x or more drinks on one occasion? Less than monthly 02/15/2020 Sex and Gender Information Value Date Recorded Sex Assigned at Not on file Gender Identity Not on file Sexual Orientation Not on file documented as of this encounter Miscellaneous Notes * Telephone Encounter - Nalini Newberry RPhT - 02/21/2022 10:06 AM CORRUGATOR HELPER A second appeal has been file w/additional chart notes UGATOR HELPER * Telephone Encounter - Nalini Newberry RPhT - 01/03/2022 10:39 AM CDT The appeal for Olumiant tabs has been filed@ [phone]. * Telephone Encounter - Nalini Newberry RPhT - 12/20/2021 2:08 PM CDT Another PA has been filed w/additional chart notes by fax@ [phone]. Medication Prior Authorization Medication: Olumiant Status: Denied Submitted via: Fax #[phone] Insurance: [employer] Case Number: Nt provided Helpdesk: [phone] * Telephone Encounter - Nalini Newberry RPhT - 12/18/2021 2:36 PM CDT Medication Prior Authorization Medication: Olumiant Status: Submitted - Pending Submitted via: Cover My Meds (Wylie:[id number]) Insurance: [employer] Case Number: Nt provided. Helpdesk: [phone] documented in this encounter Plan of Treatment Upcoming Encounters Date Type Department Care Team (Late st Contact Info) Description 11/26/2024 10:00 AM CDT Office Visit [facility] - Rheumatology [address], [address] [place] [address] Luis Trevino DO [address] [place] [address] documented as of this encounter Visit Diagnoses Not on filedocumented in this encounter Care Teams Manager Respiratory Care Relationship Specialty Start Date End Date Dennise Rose PA-C [address] [place] [address] PCP - General Physician Spanish Linguist 12/22/20 Errol Babb MD Primary Care Provider Internal Medicine 12/18/19 Marya Herring APRN-CNP [address] [place] [phone] Nurse Practitioner Family 01/28/23 01/28/23 Marya Allred [address] [place] [id number] Vascular Surgery 01/28/23 01/28/23 Marya Herring APRN-CNP [address] [place] [phone] Nurse Practitioner Family 01/28/23 documented as of this encounter
--- OUTSIDE RECORDS SUMMARY | 2024-06-03 15:10 | XMS_ITS | Clinical Summary ---
Author Organization [facility] Address [address] [place] [address] Care Team Providers Care Supervisor Braiding Name Role Phone Silvio Schulte [facility] Primary Care Provider + Allergies Active Allergy Reactions Criticality Noted Date Comments Levofloxacin Hives High 07/29/2017 All over Sulfa Antibiotics Hives High 10/28/2018 Sulfamethoxazole-Trimet hoprim Hives,Other (see comment) High 04/26/2016 Causes sores all over body Medications vitamin C 1000 MG tablet Take 1 tablet (1,000 mg total) by mouth daily. Active Potassium 99 MG tablet Take 99 mg by mouth daily. Active Vitamin D, Ergocalciferol, 50 MCG (2000 UT) CapIndications:Fo late deficiency Take 1 tablet by mouth daily. 90 capsule 021 Active multi vitamin/minerals tabletIndications :Poor nutrition Take 1 tablet by mouth daily. 30 tablet 6 021 Active predniSONE (DELTASONE) 5 mg tablet TAKE 1 TABLET BY MOUTH EVERY MORNING FOR RHEUMATOID ARTHRITIS 022 Active albuterol sulfate HFA 108 (90 Base) MCG/ACT inhalerIndication s:Wheezing INHALE TWO (2) PUFFS BY MOUTH EVERY 6 HOURS NEEDED 8.5 g 10 023 Active SYMBICORT 160-4.5 MCG/ACT inhalerIndication s:Wheezing INHALE TWO (2) PUFFS BY MOUTH TWICE DAILY 10.2 g 10 024 Active aspirin EC (ECOTRIN) 81 MG tablet daily. Active Eureka-3 Fatty Acids (RA FISH OIL) 1000 MG Cap daily. Act feliberto vitamin B-12 (CYANOCOBALAMIN) 500 MCG tablet Take by mouth. Active OLUMIANT 2 MG tablet Take 1 tablet (2 mg total) by mouth daily. 024 Active pregabalin (LYRICA) 100 MG capsuleIndication s:Fibromyalgia,Rh eumatoid arthritis, involving unspecified site, unspecified whether rheumatoid factor present ([facility]/HCC HHS/HCC) Take 1 capsule (100 mg total) by mouth 3 (three) times daily. 90 capsule 024 Active Heparin Sod, Pork, Lock Flush (HEPARIN LOCK FLUSH) 10 UNIT/ML injection 1 mL (10 Units total) by Other route. 024 Active traZODone (DESYREL) 100 MG tabletIndications :Insomnia, unspecified type TAKE ONE TABLET BY MOUTH NEEDED 30 tablet 5 024 Active acyclovir (ZOVIRAX) 400 MG tabletIndications :Herpes Take 1 tablet (400 mg total) by mouth 2 (two) times daily. 60 tablet 4 024 Active DULoxetine (CYMBALTA) 60 MG capsuleIndication s:Anxiety,Fibromy algia Take 1 capsule (60 mg total) by mouth daily. 90 capsule 1 025 Active atorvastatin (LIPITOR) 40 MG tabletIndications :Hyperlipidemia, unspecified hyperlipidemia type Take 1 tablet (40 mg total) by mouth daily. 90 tablet 1 025 Active ezetimibe (ZETIA) 10 MG tabletIndications :Hyperlipidemia, unspecified hyperlipidemia type TAKE ONE TABLET BY MOUTH DAILY 90 tablet 1 025 Active lisinopril-hydroC HLOROthiazide (ZESTORETIC) 20-25 MG tabletIndications :Primary hypertension Take 1 tablet by mouth daily. 90 tablet 1 025 Active cyclobenzaprine (FLEXERIL) 10 MG tabletIndications :Fibromyalgia TAKE ONE TABLET BY MOUTH THREE TIMES A DAY NEEDED 90 tablet 5 025 Active azithromycin (ZITHROMAX) 500 mg tabletIndications :Other dental procedure status TAKE FOUR TABLETS BY MOUTH TODAY BEFORE DENTIST APPOINTMENT THEN TAKE FOUR TABLETS BY MOUTH PRIOR TO NEXT 8 tablet 1 025 Active DULoxetine (CYMBALTA) 60 MG capsule Take 1 capsule (60 mg total) by mouth daily. 022 2024 Discontinued(R eorder) azithromycin (ZITHROMAX) 500 mg tabletIndications :Other dental procedure status 4 tablets today before dentist appt and 4 tablets prior to next dental appointment 8 tablet 1 024 2024 Discontinued(R eorder) atorvastatin (LIPITOR) 40 MG tabletIndications :Hyperlipidemia, unspecified hyperlipidemia type take one tablet by mouth daily 30 tablet 4 024 2024 Discontinued(R eorder) lisinopril-hydroC HLOROthiazide (ZESTORETIC) 20-25 MG tabletIndications :Primary hypertension take 1 tablet by mouth daily. 90 tablet 024 2024 Discontinued(R eorder) ezetimibe (ZETIA) 10 MG tabletIndications :Other hyperlipidemia TAKE ONE TABLET BY MOUTH DAILY 90 tablet 1 024 2024 Discontinued(R eorder) cyclobenzaprine (FLEXERIL) 10 MG tabletIndications :Fibromyalgia TAKE ONE TABLET BY MOUTH THREE TIMES A DAY NEEDED 90 tablet 2 025 2024 Discontinued azithromycin (ZITHROMAX) 500 mg tabletIndications :Other dental procedure status 4 tablets today before dentist appt and 4 tablets prior to next dental appointment 8 tablet 1 025 2024 Discontinued lisinopril-hydroC HLOROthiazide (ZESTORETIC) 20-25 MG tabletIndications :Primary hypertension Take 1 tablet by mouth daily. 90 tablet 025 2024 Discontinued atorvastatin (LIPITOR) 40 MG tabletIndications :Hyperlipidemia, unspecified hyperlipidemia type Take 1 tablet (40 mg total) by mouth daily. 30 tablet 4 025 2024 Discontinued ezetimibe (ZETIA) 10 MG tabletIndications :Hyperlipidemia, unspecified hyperlipidemia type TAKE ONE TABLET BY MOUTH DAILY 90 tablet 1 025 2024 Discontinued DULoxetine (CYMBALTA) 60 MG capsuleIndication s:Anxiety,Fibromy algia Take 1 capsule (60 mg total) by mouth daily. 30 capsule 025 2024 Discontinued Active Problems Problem Noted Date Diagnosed Date Primary osteoarthritis of both hands 11/28/2023 Overview (05/15/2024): Examination findings consistent with 1st CMC, scattered PIP and DIP changes with both Shana's and Heberden nodes. HSV (herpes simplex virus) anogenital infection 07/19/2023 Generalized osteoarthritis of multiple sites Overview (05/15/2024): Currently receiving both duloxetine 60 mg q.day and pregabalin 100 mg t.i.d. and awaiting spinal pain management consultation. Neurogenic claudication 11/22/2022 Chronic bilateral low back pain with bilateral s ciatica 09/04/2022 Overview (05/15/2024): Suspect degenerative mechanical LBP although uncertain if she is experiencing true sciatica. Check baseline lumbar x-rays and refer to spinal specialist. Mild intermittent asthma without complication (H HS/HCC) 12/26/2020 S/P shoulder surgery 03/29/2020 Anxiety 03/01/2020 Chronic depression 03/01/2020 Gastroesophageal reflux disease 03/01/2020 Hyperglycemia 03/01/2020 Smoker 03/01/2020 Assessment & Plan (01/06/2021 1:11 PM CDT): encouraged cessation Viral warts 03/01/2020 Other hyperlipidemia 11/30/2019 Hypertension 11/30/2019 Assessment & Plan (01/06/2021 1:11 PM CDT): Blood pressure is well controlled with no changes in regimen at this time Encouraged to continue to monitor at home and log and call office with any concerns in future. Other insomnia 11/30/2019 Right rotator cuff tear arthropathy 10/20/2019 Tendinopathy of right rotator cuff 08/24/2019 Vitamin D deficiency 10/16/2018 Rheumatoid arthritis ([facility]/HCC [facility]/HCC) 7 Pain in left foot 04/26/2016 Verruca plantaris 04/26/2016 Resolved Problems Problem Noted Date Diagnosed Date Resolved Date Low back pain 11/28/2022 05/15/2024 Preoperative clearance 01/06/202105/15 Assessment & Plan (01/06/2021 1:10 PM CDT): EKG reviewed with no change from previous - SR with RBBB - No anginal symptoms Known risk for CVD - HTN, HLD, nicotine dependence intermediate risk for planned procedure Need for prophylactic vaccin ation against Streptococcus pneumoniae (pneumococcus) and influenza 06/13/2020 06/20/2020 Acute bronchitis 03/01/2020 05/15/2024 Benign essential hypertension 03/01/2020 08/28/2022 Cellulitis of finger 03/01/2020 025 Chronic pain 03/01/2020 05/15/2024 Fracture of foot 03/01/2020 05/15/2024 Traumatic blister of foot 03/01/2020 Septic shock ([facility]) 09/25/2016 05/15/2024 Encounters Date Type Department Care Team Description 06/02/2024 Telephone [facility] [address] Heath Franco MD Appointment Request 05/27/2024 Orders Only [facility] [address] [address] Silvio Schulte FNP-BC 05/22/2024 12:04 PM CDT - 05/22/2024 11:59 PM CDT Hospital Encounter [facility] [address] [place] [address] Silvio cShulte FNP-BC Discharge Disposition: Home or Self Care (Routine Discharge) 05/22/2024 Travel 05/19/2024 Telephone [facility] [id number] [place] [phone] Silvio Schulte FNP-BC Question 05/15/2024 11:20 AM UROLOGIC SURGEON Office Visit [facility] [address] [address] Silvio Schulte FNP-BC Follow Up (F/u on medication) 05/15/2024 Travel 04/03/2024 Telephone [facility] [address] [place] [address] Silvio Schulte FNP-BC Lab Order 03/26/2024 Telephone [facility] [address] [place] [address] Silvio Schulte FNP-BC FYI 03/23/2024 Scan HEALTH INFO SRVCS Scanned, [facility] (SCAN) from Last 3 Months Immunizations Name Administration Dates Next Due Abrysvo Respiratory Syncytia l Virus (RSV) 0.5 mL, PF 12/03/2023 Fluzone 6 Months+ Quad (0.5 mL Prefilled Syringe) 01/25/2022,12/12/2020,11/30/2019,2018 Fluzone High Dose (IIV, triv alent, 0.5mL) 01/20/2015,12/26/2011,01/01/2011,2009,12/03/2008,01/14/2008,01/04/2007 Fluzone High Dose - >Age 65 (Prefilled Syringe) 01/20/2015,12/26/2011,01/01/2011,2009,12/03/2008,01/14/2008,01/04/2007 Influenza (Generic) 12/03/2023, 9,02/06/2016,2013,01/05/2013 Influenza Adult (Generic) 02/04/2023,03/2018,12/20/2017,2016,02/06/2016,01/20/2015,12/26/2011,1 ,12/14/2009,12/03/2008, 008,01/04/2007 PFIZER COVID-19 (THOMAS CAP), MRNA, LNP-S, PF, 30 MCG/0.3 ML HORTENSIA-SUCROSE, IM 07/06/2021 PFIZER COVID-19 (ORIGINAL FORMULATION, PURPLE CAP) mRNA, LNP-S, PF, 30 MCG/0.3 ML DOSE 10/24/2020,06/24/2020,05/27/2020 PFIZER COVID-19 BIVALENT (12 +) mRNA, LNP-S, PF, 30 MCG/0.3 ML DOSE 01/25/2022 Pneumococcal (Pneumovax 23) 01/28/2009 Pneumococcal (Prevnar 13) 04/21/2018 Shingrix 04/16/2018,01/08/2018 Td 07/15/2003 Td (Generic) 07/15/2003 Td (Tenivac) preservative free 07/15/2003 Td, Adsorbed, Preservative F ree, Adult Use, Lf Unspecified 07/15/2003 Tdap (Generic) 04/21/2018 Family History Medical History Relation Comments Heart Disease Father Breast Cancer Mother Diabetes Mother Heart Disease Mother Stroke Mother Heart Disease Sister congenital defec t Relation Status Comments Father Maternal Grandfather Maternal Grandmother Mother Paternal Grandfather Paternal Grandmother Sister Social History Tobacco Use Types Packs/Day Years Used Date Smoking Tobacco: Every Day Cigarettes Passive Smoke Exposure: Current Smokeless Tobacco: Never Tobacco Cessation:Ready to Q uit: Not Asked; Counseling Given: Yes Comments:Since 15 yo Alcohol Use Standard Drinks/Week Comments Yes 3.3 (1 standard drink = 0.6 oz p ure alcohol) socially AUDIT-C Answer Date Recorded Q1: How often do you have a drink containing alc ohol? 2-4 times a month 01/01/2020 Q2: How many drinks containi ng alcohol do you have on a typical day when you are drinking? 3 or 4 01/01/2020 Frequency of Binge Drinking Not on file 12/10 PHQ-2 Answer Date Recorded Patient Health Questionnaire-2 Score 0 05/15/2024 Comments No Sex and Gender Information Value Date Recorded Sex Assigned at Female 05/15/2024 11:12 AM UROLOGIC SURGEON Legal Sex Female 10:50 AM UROLOGIC SURGEON Gender Identity Female 05/15/2024 11:12 AM UROLOGIC SURGEON Sexual Orientation Not on file Last Filed Vital Signs Vital Sign Reading Time Taken Comments Blood Pressure 110/79 05/15/2024 11:13 AM UROLOGIC SURGEON Pulse 100 05/15/2024 11:13 AM UROLOGIC SURGEON Temperature 36.9 C (98.5 F) 05/15/2024 11:13 AM UROLOGIC SURGEON Respiratory Rate 18 05/15/2024 11:13 AM UROLOGIC SURGEON Oxygen Saturation 95% 05/15/2024 11:13 AM UROLOGIC SURGEON Inhaled Oxygen Concentration - - Weight 82.1 kg (181 lb) 05/15/2024 11:13 AM UROLOGIC SURGEON Height 175.3 cm (5' 9 ) 05/15/2024 11:13 AM UROLOGIC SURGEON Body Mass Index 26.73 05/15/2024 11:13 AM UROLOGIC SURGEON Plan of Treatment Upcoming Encounters Date Type Department Care Team (Late st Contact Info) Description 11/16/2024 11:20 AM CDT Office Visit [facility] Internal Medicine - [place] [address] [place] [address] Silvio Schulte, [facility] [address] [facility], [address] [place] [address] Health Maintenance Due Date Last Done Comments COVID-19 Vaccine ( season) 2024 12/03/2023, 02/04/2023, 01/25/2022, Additional history exists Mammogram Screening 01/02/2025 01/02/2023, 12/20/2021, 08/24/2020 Pneumococcal Vaccine: 65+ Years (3 of 3 - PPSV23 or PCV20) 05/15/2025 04/21/2018, 01/28/2009 Postponed from 2024 (Patient Refused) Pneumococcal Vaccine: Pediatrics (0 to 5 Years) and At-Risk Patients (6 to 64 Years) (3 of 3 - PPSV23 or PCV20) 05/15/2025 04/21/2018, 01/28/2009 Postponed from 2024 (Patient Refused) Colorectal Cancer Screening FIT-DNA (3 Years) 09/03/2025 09/03/2022, 09/03/2022, 04/29/2019 DTaP, Tdap and Td Vaccines (2 - Td or Tdap) 04/21/2028 04/21/2018, 07/15/2003, 07/15/2003, Additional history exists Zoster Vaccines Completed 04/16/2018, 01/08/2018 Hepatitis C Completed 06/08/2022, 10/28/2018 Dexa Scan (General) Completed 01/14/2023, 01/14/2023, 01/14/2023 Influenza Adult Completed 12/03/2023, 01/10, 01/25/2022, Additional history exists RSV Immunization or 60+ Years Completed 12/03/2023 PHQ-2 (Physician [place]) Completed 05/15/2024 Meningococcal B Vaccine Aged Out No l onger eligible based on patient's age to complete this topic Meningococcal Vaccine Aged Out No catalina walter eligible based on patient's age to complete this topic RSV Immunizations Under 20 Months Aged Out No longer eligible based on patient's age to complete this topic Procedures Procedure Name Priority Date/Time Associated Diagnosis Comments USV JUSTIN LTD EDWARDO Routine 05/22/2024 1:02 PM CDT Toe cyanosis OUTSIDE LAB (SCAN ORDER) 03/23/2024 BONE DENSITY GENERIC (SCAN ORDER) 01/14/2023 MG SCREENING W KYRA EDWARDO DIGI Routine 01/02/2023 2:48 PM CDT Encounter for screening mammogram for malignant neoplasm of breast COLOGUARD (EXACT SCIENCE) Routine 09/03/2022 7:30 AM CDT Colon cancer screening from Last 3 Months or Most Recently Relevant to Health Maintenance Results * USV JUSTIN LTD EDWARDO (05/22/2024 1:02 PM CDT) Anatomical Region Laterality Modality Extremity Ultrasound 05/23/2024 7:41 AM CDT Impressions 05/23/2024 7:43 AM CDT IMPRESSION: 1. BILATERAL ANKLE BRACHIAL INDICES TAKING INTO CONSIDERATION THE POSTERIOR TIBIAL ARTERIES ARE 0.65 ON THE RIGHT AND 0.83 ON THE LEFT. 2. BILATERAL ANKLE BRACHIAL INDICES TAKING INTO CONSIDERATION THE DORSALIS PEDIS ARTERY ARE 0.6 by ON THE RIGHT AND 0.73 ON THE LEFT. Right toe brachial index is 0.42. On the left side is 0.35 3. BLUNTED BIPHASIC WAVES FORMS IN THE POSTERIOR TIBIAL AND DORSALIS PEDIS ARTERIES. Referred By: SILVIO SCHULTE Interpreted By: Nicola Elise MD, 05/23/2024 7:41 AM Narrative 05/23/2024 7:43 AM CDT [place] [address] [place] [address] IMAGING STUDIES: [employer]Pitt[employer] JUSTIN Digiting EDWARDO DATE: 05/22/2024 12:20 PM CLINICAL HISTORY: cyanosis toes, tobacco use, pain. Hypertension. Hyperlipidemia. FINDINGS: BILATERAL BRACHIAL ARTERY PRESSURES ARE 113 MILLIMETERS OF MERCURY ON THE RIGHT AND 105 ON THE LEFT. POSTERIOR TIBIAL ARTERY PRESSURES ARE 74 ON THE RIGHT AND 94 ON THE LEFT. DORSALIS PEDIS PRESSURES ARE 73 ON THE RIGHT AND 83 ON THE LEFT. DIGIT PULSES ARE 48 ON THE RIGHT 39 ON THE LEFT. Procedure Note Nicola Elise MD - 05/23/2024 [place] [id number] [place] [address] IMAGING STUDIES: [employer] (Proprietary) JUSTIN Digiting BILDATE: 05/22/2024 12:20 PM CLINICAL HISTORY: cyanosis toes, tobacco use, pain. Hypertension.Hyperlipidemia. FINDINGS: BILATERAL BRACHIAL ARTERY PRESSURES ARE 113 MILLIMETERS OF MERCURY ON THERIGHT AND 105 ON THE LEFT. POSTERIOR TIBIAL ARTERY PRESSURES ARE 74 ON THE RIGHT AND 94 ON THELEFT. DORSALIS PEDIS PRESSURES ARE 73 ON THE RIGHT AND 83 ON THE LEFT. DIGIT PULSES ARE 48 ON THE RIGHT 39 ON THE LEFT. IMPRESSION: 1. BILATERAL ANKLE BRACHIAL INDICES TAKING INTO CONSIDERATION THEPOSTERIOR TIBIAL ARTERIES ARE 0.65 ON THE RIGHT AND 0.83 ON THE LEFT. 2. BILATERAL ANKLE BRACHIAL INDICES TAKING INTO CONSIDERATION THEDORSALIS PEDIS ARTERY ARE 0.6 by ON THE RIGHT AND 0.73 ON THE LEFT. Right toe brachial index is 0.42. On the left side is 0.35 3. BLUNTED BIPHASIC WAVES FORMS IN THE POSTERIOR TIBIAL AND DORSALISPEDIS ARTERIES. Referred By: SILVIO SCHULTE Interpreted By: Nicola Elise MD, 05/23/2024 7:41 AM Silvio Schulte SAMPLE [employer]OX MAKER- US VASC Final Re sult * OUTSIDE LAB (SCAN ORDER) (03/23/2024) 03/23/2024 [facility] Scanned SCANNING Final Resu lt * BONE DENSITY GENERIC (01/14/2023) Anatomical Region Laterality Modality Other 01/14/2023 [facility] Scanned SCANNING Final Resu lt * MG SCREENING W KYRA EDWARDO DIGI (01/02/2023 2:48 PM CDT) Anatomical Region Laterality Modality Breast Bilateral Mammography 01/02/2023 4:53 PM CDT Narrative 01/02/2023 4:58 PM CDT IMAGING STUDIES: Bilateral screening mammograms with computer-aided detection with 2-D and 3-D imaging. Tomosynthesis. DATE: 01/02/2023 2:33 PM HISTORY: Breast cancer screening . Mother diagnosed breast carcinoma age 70. COMPARISON: 08/24/2020. 12/20/2021 TISSUE TYPE: The breast tissue is heterogeneously dense, which may obscure small masses. FINDINGS: 1. Moderate fibroglandular tissue pattern is present. Benign nodularity. Benign calcifications. 2. No malignant microcalfcifications, new dominant masses, or architectural distortion. 3. No skin thickening or nipple retraction. Axillary regions are within normal limits. Limited visualization of the right axilla due to recent port placement and right shoulder surgery IMPRESSION: 1. No mammographic evidence of malignancy. 2. Assessment: ACR BI-RADS 2 - BENIGN FINDING(S) 3 .Routine Screening Bilateral MQSA BI-RADS Categories: Category 0 - needs additional imaging evaluation. Category 1 - negative. Category 2 - benign findings. Category 3 - probably benign findings, but short interval follow-up is recommended. Category 4 - suspicious abnormality and biopsy should be considered though the lesion may well be benign. Category 5 - highly suggestive of malignancy and appropriate action should be taken. Category 6 - known biopsy-proven malignancy A) A negative report should not delay a biopsy if a dominant or clinically suspicious mass is present. B) Adenosis and dense breasts may obscure an underlying neoplasm. C) Study interpreted with computer aided detection. Ordered By: DENNISE ROSE Interpreted By: Khushbu Elise, 01/02/2023 4:53 PM Dennise Rose PA MAMMO Final Result * (ABNORMAL) COLOGUARD ([employer] SCIENCE) (09/03/2022 7:30 AM CDT) COLOGUARD RESULT Positive( A) Negative [facility] (CLIA #:[id number]) Comment: POSITIVE TEST RESULT. A positive Cologuard result should be followed with a colonoscopy or visual examination of the colon. The normal value (reference range) for this assay is negative. TEST DESCRIPTION: Composite algorithmic analysis of stool DNA-biomarkers with hemoglobin immunoassay. Quantitative values of individual biomarkers are not reportable and are not associated with individual biomarker result reference ranges. Cologuard is intended for colorectal cancer screening of adults of either sex, 45 years or older, who are at average-risk for colorectal cancer (CRC). Cologuard has been approved for use by the U.S. FDA. The performance of Cologuard was established in a cross sectional study of average-risk adults aged 50-84. Cologuard performance in patients ages 45 to 49 years was estimated by sub-group analysis of near-age groups. Colonoscopies performed for a positive result may find as the most clinically significant lesion: colorectal cancer [4.0%], advanced adenoma (including sessile serrated polyps greater than or equal to 1cm diameter) [20%] or non- advanced adenoma [31%]; or no colorectal neoplasia [45%]. These estimates are derived from a prospective cross-sectional screening study of 10,000 individuals at average risk for colorectal cancer who were screened with both Cologuard and colonoscopy. (Almas Humphries al, N Engl J Med 2014;370(14):3937-0386.) Cologuard may produce a false negative or false positive result (no colorectal cancer or precancerous polyp present at colonoscopy follow up). A negative Cologuard test result does not guarantee the absence of CRC or advanced adenoma (pre-cancer). The current Cologuard screening interval is every 3 years. ([place] [employer] Society and U.S. Multi-Society Task Force). Cologuard performance data in a 10,000 patient pivotal study using colonoscopy as the reference method can be accessed at the following location: [email or web address]/results. Additional description of the Cologuard test process, warnings and precautions can be found at www.cologuard.com. STOOL STOOL SPECIMEN / Unknown 09/03/2022 7:30 AM CDT 09/05/2022 4:58 PM CDT us Dennise VILLARREAL BODY FLUIDS AND STOOLS ORDER MONE Final Result [facility] ([facility]) [address] [place] [address], [facility] (CLIA #:[id number]) [address] [place] [address] from Last 3 Months or Most Recently Relevant to Health Maintenance Insurance Care Teams Supervisor Braiding Relationship Specialty Start Date End Date Silvio Schulte, S[employer]ER-BC [address], [address] [place] [address] PCP - General Nurse Practitioner Family 07/04/23
--- OUTSIDE RECORDS SUMMARY | 2024-06-03 15:10 | XMS_ITS | Continuity of Care Document ---
Author Organization [facility] Address [address] [place] [address] Phone Care Team Providers Care Registered Massage Therapist Name Role Phone Kraig Moreland DO Unavailable Unavailable Advance Directives Directive Yes / No Effective Date File Name No Information Encounters Encounter Description Practice Location Reason(s) For Visit Diagnoses Date Provider Providers Copied on Encounter [facility], [address], [place], [place], [id number], [place] tel:[phone] [facility] [place][note 2] No Information Aniceto Reddy. [address] [facility], [place], [address], [place]. tel:[phone] Family History Family Member Type Diagnosis Age At Onset No Information Payers Payer name Insurance type Covered republican ID Authoriza tion(s) [facility] Commercial [id number] Social History Type Description Quantity Date Captured [...]
--- OUTSIDE RECORDS SUMMARY | 2024-06-03 15:10 | XMS_ITS | Encounter Summary ---
Author Organization [facility] Address Replaced by [facility] [place] [address] Care Team Providers Care Mental Health Advanced Practice Nurse Name Role Phone Germania Noel [facility] Primary Care Provider + Reason for Visit * Reason Onset Date Comments Appointment Request 06/02/2024 Encounter Details Date Type Department Care Team ([facility] Contact Info) Description 06/02/2024 [facility]phone [place] [facility] [address] [place], [place] [phone] Heath Crowley MD [facility] [place]. [facility] [address], [place] [phone] Appointment Request Social History Tobacco Use Types Packs/Day Years Used Date Smoking Tobacco: Every Day Cigarettes Passive Smoke Exposure: Current Smokeless Tobacco: Never Comments:Since 15 yo Alcohol Use Standard Drinks/Week [...] Sex Assigned at Female 05/15/2024 11:12 AM COMMERCIAL DRIVER'S LICENSE DRIVER Legal Sex Female 10:50 AM COMMERCIAL DRIVER'S LICENSE DRIVER Gender Identity Female 05/15/2024 11:12 AM COMMERCIAL DRIVER'S LICENSE DRIVER Sexual Orientation Not on file documented as of this encounter Progress Notes * Sarah Castro MA - 06/02/2024 3:32 PM CDT Luli was referred to Dr. Crowley for PVD by the PCP. I was unable to reach her and I left a messageon her cell asking her to call the office for an appointment. documented in this encounter Plan of Treatment Upcoming Encounters Date Type Department Care Team (Late st Contact Info) Description 11/16/2024 11:20 AM CDT Office Visit [facility] Medical Group Family & Internal Medicine [facility] [address] [place] [address] Germania Noel FNP-BC [address] [facility], [place] [phone] documented as of this encounter Visit Diagnoses Not on filedocumented in this encounter Additional Health Concerns Assessment Noted Time PHQ-9 Depression Total Score: 0 05/16/19 25 12:01 PM COMMERCIAL DRIVER'S LICENSE DRIVER documented as of this encounter Care Teams Mental Health Advanced Practice Nurse Relationship Specialty Start Date End Date Germania Noel FNP-BC [address] [place] [address], [address] [phone] PCP - General Nurse Practitioner Family 07/04/23 documented as of this encounter
--- OUTSIDE RECORDS SUMMARY | 2024-06-03 15:10 | XMS_ITS | Clinical Summary ---
Author Organization [facility] Address [address] [facility] [place] [address] Phone Care Team Providers Care Deli Bakery Clerk Name Role Phone Mathew Rutherford MD Primary Care Provider [phone] Jose Bailey DPM Unavailable [phone] Allergies Active Allergy Reactions Criticality Noted Date Comments Sulfamethoxazole-Tri methoprim Other (see Comments) 04/26/2016 Causes sores all over body Medications acyclovir (ZOVIRAX) 400 MG Tablet Take 1 Tab by mouth 2 times daily. 2 7 Active cyclobenzaprine (FLEXERIL) 10 MG Tablet Take 1 Tab by mouth 3 times daily. 0 7 Active folic acid (FOLVITE) 1 MG Tablet Take 1 Tab by mouth daily. 2 7 Active gabapentin (NEURONTIN) 300 MG Capsule Take 2 Caps by mouth 4 times daily. 3 7 Active leflunomide (ARAVA) 10 MG Tablet Take 1 Tab by mouth daily. 2 7 Active lisinopril-hydro CHLOROthiazide (PRINZIDE, ZESTORETIC) 20-12.5 MG Tablet Take 2 Tabs by mouth daily. 2 7 Active methotrexate 2.5 MG Tablet Take 8 Tabs by mouth every 7 days. 3 7 Active morphine (MS CONTIN) 15 MG Tablet Controlled Release Take 1 Tab by mouth 2 times daily. 0 7 Active Multiple Vitamin (MULTI-VITAMINS) Tablet Take 1 Tab by mouth daily. 2 7 Active oxyCODONE-acetam inophen (PERCOCET) 5-325 MG Tablet Take 1 Tab by mouth 2 times daily. 0 7 Active predniSONE (DELTASONE) 5 MG Tablet Take 1 Tab by mouth daily. 1 7 Active raNITIdine (ZANTAC) 150 MG Tablet Take 1 Tab by mouth daily. 2 7 Active sertraline (ZOLOFT) 100 MG Tablet Take 2 Tabs by mouth daily. 2 7 Active traZODone (DESYREL) 100 MG Tablet Take by mouth nightly. 2-3 tabs 2 7 Active albuterol (VENTOLIN HFA) 108 (90 BASE) MCG/ACT Aerosol Solution take 2 Puffs by inhalation every 4 hours as needed for Wheezing. Active vitamin b-12 (CYANOCOBALAMIN) 500 MCG Tablet Take 500 mcg by mouth daily. Active Ascorbic Acid (VITAMIN C) 1000 MG Tablet Take 1 Tab by mouth daily. Active CALCIUM CARBONATE-VITAMI N D PO Take 1 Tab by mouth daily. Active abatacept (ORENCIA) 250 MG Recon SolnIndications: 1 intravenous once a month by Intravenous route once. Hazardous: Medication requires special safe handling and disposal. Indications: 1 intravenous once a month Active Active Problems Problem Noted Date Diagnosed Date Septic shock(785.52) 09/25/2016 Rheumatoid arthritis (<HCC>) 09/25/2016 Pain in left foot 04/26/2016 Plantar wart, left foot 04/26/2016 Family History Medical History Relation Name Comments Heart Disease Father Cancer Mother Diabetes Mother Heart Disease Mother Hypertension Mother Stroke Mother Relation Name Status Comments Father Mother Social History Tobacco Use Types Packs/Day Years Used Date Smoking Tobacco: Every Day Cigarettes 1 20 Smokeless Tobacco: Never Tobacco Cessation:Ready to Q uit: No Alcohol Use Standard Drinks/Week Comments Yes 0 (1 standard drink = 0.6 oz pur e alcohol) occasionally Comments No Sex and Gender Information Value Date Recorded Sex Assigned at Not on file Legal Sex Female 7:35 PM CDT Gender Identity Not on file Sexual Orientation Not on file Last Filed Vital Signs Vital Sign Reading Time Taken Comments Blood Pressure 146/71 09/25/2016 8:06 AM CDT Pulse 61 09/25/2016 8:06 AM CDT Temperature 35.9 C (96.7 F) 09/25/2016 8:06 AM CDT Respiratory Rate 20 09/25/2016 8:06 AM CDT Oxygen Saturation 98% 09/25/2016 7:25 AM CDT Inhaled Oxygen Concentration - - Weight 80.6 kg (177 lb 11.1 oz) 017 11:25 PM CDT Height 177.8 cm (5' 10 ) 09/21/2016 1:20 PM CDT Body Mass Index 25.5 09/21/2016 1:20 PM CDT Plan of Treatment Health Maintenance Due Date Last Done Comments DEXA Bone Density 1960 Hepatitis C Virus (HCV) Screening 1959 TdaP Immunization 1959 SARS-COV-2 Immunization (#1) 1964 Zoster Immunization (1 of 2) 1978 Colonoscopy 2004 Colorectal Cancer Screening 2004 Cologuard 2009 Immunochemical Fecal Occult Blood 2009 Mammogram 2009 Pneumococcal Immunization (5 0+ years) (1 of 1 - PCV) 2009 Respiratory Syncytial Virus (RSV) Immunization (Adult) (1 - Risk 60-74 years 1-dose series) 2019 Influenza Immunization (#1) 2023 Hepatitis B Immunization Aged Out No longer eligible based on patient's age to complete this topic Meningococcal Immunization (ACWY) Aged Out No longer eligible based on patient's age to complete this topic Pneumococcal Immunization Combined Aged Out No longer eligible based on patient's age to complete this topic Rotavirus Immunization Aged Out No lo nger eligible based on patient's age to complete this topic Insurance MEDICAID [place] Advance Directives * Full Code (Latest Code Status on File) Date Activated Date Inactivated Comments 09/21/2016 4:40 PM 09/25/2016 4:41 PM CPR-Full [place] atment: FULL ARREST: Attempt Resuscitation/CPR wit intubation and mechanical ventilation. PRE-ARREST: Use entire range of life support measures to stabilize the patient. Care Teams Deli Bakery Clerk Relationship Specialty Start Date End Date Mathew Rutherford MD PCP - General Internal Medicine 04/13/16 Jose Bailey DPM Podiatry 04/26/16
== END 2024-06-03 13:58 | disposition home or self-care (01) ==
LOC: ANHIMG 13:59
PROVIDERS: PCP Nurse Practitioner Family; Visit Provider Nurse Practitioner Family
DX: Z12.2 Encounter for screening for malignant neoplasm of respiratory organs (principal); Z87.891 Personal history of nicotine dependence; Z12.31 Encounter for screening mammogram for malignant neoplasm of breast
CPT/HCPCS: 71271; 77063; 77067

== ENCOUNTER 2024-06-09 10:07 | Outpatient (CLI) | payer MEDICARE, SELFPAY ==
[2024-06-09 10:39] LABS: Hemoglobin A1C 5.8 % (<5.7)
--- OUTSIDE RECORDS SUMMARY | 2024-06-09 11:07 | XMS_ITS | Clinical Summary ---
Author Organization [facility] Address [address] [place] [address] Care Team Providers Care Asbestos Surveyor Name Role Phone Silvio Schulte [facility] Primary Care Provider + Allergies Active Allergy [...] EC (ECOTRIN) 81 MG tablet daily. Active Addison-3 Fatty Acids (RA FISH OIL) 1000 MG Cap daily. Act feliberto vitamin B-12 (CYANOCOBALAMIN) 500 MCG tablet Take by mouth. Active OLUMIANT 2 MG tablet Take 1 tablet (2 mg total) by mouth daily. 024 Active pregabalin (LYRICA) 100 MG capsuleIndication s:Fibromyalgia,Rh eumatoid arthritis, involving unspecified site, unspecified whether rheumatoid factor present ([facility]/HCC HHS/HCC) Take 1 capsule (100 mg total) [...] 08/24/2019 Vitamin D deficiency 10/16/2018 Rheumatoid arthritis ([facility]/HCC [facility]/HCC) 7 Pain in left foot 04/26/2016 Verruca [...] Traumatic blister of foot 03/01/2020 Septic shock ([facility]) 09/25/2016 05/15/2024 Encounters Date Type Department Care Team Description 06/02/2024 Telephone [facility] [address] [address] Heath Franco MD Appointment Request 05/28/2024 Scan [employer] INFO SRVCS Scanned, [facility] 05/27/2024 Orders Only [facility] Family & Internal [facility] [address] [place] [address] Silvio Schulte FNP-BC 05/22/2024 12:04 PM CDT - 05/22/2024 11:59 PM CDT Hospital Encounter [facility] [address] [place] [address] Silvio Schulte FNP-BC Discharge Disposition: Home or Self Care (Routine Discharge) 05/22/2024 Travel 05/19/2024 Telephone [facility] Family & Internal [facility] [address] [place] [address] Silvio Schulte FNP-BC Question 05/15/2024 11:20 AM WIRE STRAIGHTENER Office Visit [facility] [address] [address] Silvio Schulte FNP-BC Follow Up (F/u on medication) 05/15/2024 Travel 04/03/2024 Telephone [facility] Family & Internal Medicine [place] [id number] [place] [address] [facility] Order 03/26/2024 Telephone [facility] [address] [address] Silvio Schulte [facility] FYI 03/23/2024 Scan HEALTH INFO SRVCS Scanned, [...] Sex Assigned at Female 05/15/2024 11:12 AM WIRE STRAIGHTENER Legal Sex Female 10:50 AM WIRE STRAIGHTENER Gender Identity Female 05/15/2024 11:12 AM WIRE STRAIGHTENER Sexual Orientation Not on file Last Filed Vital Signs Vital Sign Reading Time Taken Comments Blood Pressure 110/79 05/15/2024 11:13 AM WIRE STRAIGHTENER Pulse 100 05/15/2024 11:13 AM WIRE STRAIGHTENER Temperature 36.9 C (98.5 F) 05/15/2024 11:13 AM WIRE STRAIGHTENER Respiratory Rate 18 05/15/2024 11:13 AM WIRE STRAIGHTENER Oxygen Saturation 95% 05/15/2024 11:13 AM WIRE STRAIGHTENER Inhaled Oxygen Concentration - - Weight 82.1 kg (181 lb) 05/15/2024 11:13 AM WIRE STRAIGHTENER Height 175.3 cm (5' 9 ) 05/15/2024 11:13 AM WIRE STRAIGHTENER Body Mass Index 26.73 05/15/2024 11:13 AM WIRE STRAIGHTENER Plan of Treatment Upcoming Encounters Date Type Department Care Team (Late st Contact Info) Description 07/01/2024 2:45 PM CDT Office Visit [facility]Charlene [facility], [facility] [address] [place], [place] [phone] Heath Franco MD [facility]. [facility] [address] [place], [place] [address] 11/16/2024 11:20 AM CDT Office Visit [facility] Medical Group Family & Internal Medicine [facility] [address] [place] [address] Silvio Schulte, [facility] [address] [facility], [address] [place] [address] Health Maintenance Due Date Last [...] Dexa Scan (General) Completed 01/14/2023, 01/14/2023, 01/14/2023 RSV Immunization or 60+ Years Completed 12/03/2023 PHQ-2 (Physician Telida) Completed 05/15/2024 Meningococcal B Vaccine Aged Out [...] 7:41 AM Narrative 05/23/2024 7:43 AM CDT [facility] [address] [place] [address] IMAGING STUDIES: US[employer] Not Give Back JUSTIN LTD EDWARDO DATE: 05/22/2024 12:20 PM CLINICAL HISTORY: [...] 39 ON THE LEFT. Procedure Note Nicola Elies MD - 05/23/[address] [place] [address] IMAGING STUDIES: [employer] JUSTIN [employer] BILDATE: 05/22/2024 12:20 PM CLINICAL HISTORY: cyanosis [...] Elise MD, 05/23/2024 7:41 AM Silvio Schulte PULP SCREEN OPERATOR-BC US VASC Final Re sult * OUTSIDE LAB (SCAN ORDER) (03/23/2024) 03/23/2024 [facility] Scanned SCANNING Final Resu lt * BONE DENSITY GENERIC (01/14/2023) Anatomical Region Laterality Modality Other 01/14/2023 [facility] Scanned SCANNING Final Resu lt [...] Khushbu Elise, 01/02/2023 4:53 PM Dennise Rose [place] MAMMO Final Result * (ABNORMAL) COLOGUARD ([facility]) (09/03/2022 7:30 AM CDT) COLOGUARD RESULT Positive( A) Negative [employer] (CLIA #:[id number]) Comment: POSITIVE TEST RESULT. A positive Cologuard [...] screened with both Cologuard and colonoscopy. (Almas Arellano et al, N Engl J Med 2014;370(14):4009-4721.) Cologuard may produce a false negative or false positive result (no colorectal cancer or precancerous polyp present at colonoscopy follow up). A negative Cologuard test result does not guarantee the absence of CRC or advanced adenoma (pre-cancer). The current Cologuard screening interval is every 3 years. ([place] Cancer Society and U.S. Multi-Society Task Force). Cologuard performance data in a 10,000 patient pivotal study using colonoscopy as the reference method can be accessed at the following location: www.[employer].Magazinga/results. Additional description of the Cologuard test process, warnings and precautions can be found at www.cologuard.Magazinga. STOOL STOOL SPECIMEN / Unknown 09/03/2022 7:30 AM CDT 09/05/2022 4:58 PM CDT Dennise VILLARREAL BODY FLUIDS AND STOOLS ORDER MONE Final Result [employer] ([facility] [address] LAB) [address] [place] [address], [employer] (CLIA #:[id number]) [address] [place] [address] from Last 3 Months or Most Recently Relevant to Health Maintenance Insurance [facility] Care Teams Asbestos Surveyor Relationship Specialty Start Date End Date Silvio Schulte, PULP SCREEN OPERATOR- [address], [address] [place] [address] PCP - General Nurse Practitioner Family 07/04/23
--- OUTSIDE RECORDS SUMMARY | 2024-06-09 11:07 | XMS_ITS | Encounter Summary ---
Author Organization [facility] Address [address] [place] [place] [address] Care Team Providers Care Form Maker Plaster Name Role Phone Errol Babb MD Unavailable [phone] Dennise Rose PA-C Primary Care Provider [phone] NimaMarya pichardo CHRONOMETER ASSEMBLER AND ADJUSTER-CERTIFIED ORTHOTIC FITTER Unavailable + Marya Allred Unavailable Nima, Marya Artem CHRONOMETER ASSEMBLER AND ADJUSTER-CERTIFIED ORTHOTIC FITTER Unavailable + Encounter Details Date Type Department Care Team (Late st Contact Info) Description 12/18/2021 Telephone [facility] - Rheumatology [address] [facility], [facility] [address] [place] [address] Luis Trevino DO [address] [facility] [address] [place] [address] Social History Tobacco Use Types [...] Nalini Newberry RPhT - 02/21/2022 10:06 AM FUNERAL DIRECTOR'S ASSISTANT A second appeal has been file w/additional chart notes RAL DIRECTOR'S ASSISTANT * Telephone Encounter - Nalini Newberry RPhT - 01/03/2022 10:39 AM CDT The appeal for Olumiant tabs has been filed@ [phone]. * Telephone Encounter - Nalini Newberry RPhT - 12/20/2021 2:08 PM CDT Another PA has been filed w/additional chart notes by fax@ [phone]. Medication Prior Authorization Medication: Olumiant Status: Denied Submitted via: Fax #[phone] Insurance: Bladimir Case Number: Nt provided Helpdesk: [phone] * Telephone Encounter - Nalini Newberry RPhT - 12/18/2021 2:36 PM CDT Medication Prior Authorization Medication: Olumiant Status: Submitted - Pending Submitted via: Cover My Meds (Wylie:[id number]) Insurance: Bladimir Case Number: Nt provided. Helpdesk: [phone] documented in this encounter Plan of Treatment Upcoming Encounters Date Type Department Care Team (Late st Contact Info) Description 11/26/2024 10:00 AM CDT Office Visit [facility] - Rheumatology [address] [facility], [address] [place] [address] Luis Trevino DO [address] [facility] [place] [address] documented as of this encounter Visit Diagnoses Not on filedocumented in this encounter Care Teams Form Maker Plaster Relationship Specialty Start Date End Date Dennise Rose PA-C [address] [place] [address] PCP - General Physician Production Welding Supervisor 12/22/20 Errol Babb MD Primary Care Provider Internal Medicine 12/18/19 Marya Herring APRN-CNP [address] [place] [phone] Nurse Practitioner Family 01/28/23 01/28/23 Marya Allred [address] [place] [address] Vascular Surgery 01/28/23 01/28/23 Marya Herring APRN-CNP [address] [place] [phone] Nurse Practitioner Family 01/28/23 documented as of this encounter
--- OUTSIDE RECORDS SUMMARY | 2024-06-09 11:07 | XMS_ITS | Continuity of Care Document ---
Author Organization [facility] Address [address] [place] [address] Phone Care Team Providers Care Screw Driver Operator Name Role Phone Kraig Moreland DO Unavailable Unavailable Advance Directives Directive Yes / No Effective Date File Name No Information Encounters Encounter Description Practice Location Reason(s) For Visit Diagnoses Date Provider Providers Copied on Encounter Merged with [facility], [address], [place], [place], [address], [place] tel:[phone] [facility] No Information Aniceto Reddy. [address] [facility], [place], [address], [place]. tel:[phone] Family History Family Member Type Diagnosis Age At Onset No Information Payers Payer name Insurance type Covered constitution party ID Authoriza tion(s) [facility] Commercial [id number] Social History Type Description Quantity Date Captured [...]
--- OUTSIDE RECORDS SUMMARY | 2024-06-09 11:07 | XMS_ITS | Clinical Summary ---
Author Organization [facility] Address [address] [facility] [facility] [place] [address] Phone Care Team Providers Care Supervisor Cell Operation Name Role Phone Mathew Rutherford MD Primary Care Provider [phone] Jose Bailey DPM Unavailable [phone] Allergies Active Allergy Reactions Criticality Noted [...] measures to stabilize the patient. Care Teams Supervisor Cell Operation Relationship Specialty Start Date End Date Mathew Rutherford MD PCP - General Internal Medicine 04/13/16 Jose Bailey DPM Podiatry 04/26/16
--- OUTSIDE RECORDS SUMMARY | 2024-06-09 11:07 | XMS_ITS | Encounter Summary ---
Author Organization [facility] Address [address] [place] [address] Care Team Providers Care Contracting Specialist Name Role Phone Errol Babb MD Unavailable [phone] Dennise RoseC Primary Care Provider [phone] Marya Herring MALL MANAGER-SOLE CEMENTER Unavailable + Encounter Details Date Type Department Care Team (Late st Contact Info) Description 06/09/2024 Orders Only [facility] Group - Rheumatology [address] [facility], [address] [place] [address] Luis Trevino DO [address] [facility] [address] [place] [address] [facility] (current) use of janus kinase inhibitor; Elevated liver enzymes Social History Tobacco Use Types Packs/Day Years [...] on file documented as of this encounter Plan of Treatment Upcoming Encounters Date Type Department Care Team (Late st Contact Info) Description 11/26/2024 10:00 AM CDT Office Visit [facility] - Rheumatology [address] [facility], [address] [place] [address] Uriel LuisDO [address] [facility] [address] [place] [address] documented as of this encounter Visit Diagnoses Diagnosis [facility] (current) use of janus kinase inhibitor Elevated liver enzymes Nonspecific elevation of levels of transaminase or lactic acid dehydrogenase (LDH) documented in this encounter Care Teams Contracting Specialist Relationship Specialty Start Date End Date Dennise Rose, PAAdonisC [address] [place] [address] PCP - General Physician Correctional Case Records Supervisor 12/22/20 Errol Babb MD Primary Care Provider Internal Medicine 12/18/19 Marya Herring APRN-CNP [address] [place] [address] Nurse Practitioner Family 01/28/23 documented as of this encounter
--- OUTSIDE RECORDS SUMMARY | 2024-06-09 11:07 | XMS_ITS | Clinical Summary ---
Author Organization [facility] Address [address] [place] [address] Care Team Providers Care Program Director/Traffic Director Name Role Phone Errol Babb MD Unavailable [phone] Dennise Rose PA-C Primary Care Provider [phone] Marya Herring LIGHT BULB ASSEMBLER-SCREW MACHINE OPERATOR SINGLE SPINDLE Unavailable + Source Comments [facility],non-owned Affiliates and Associated Physician Practices is amultiple site organization consisting of ambulatory clinics and hospital sitesin [place], [place], [place] and [place]. This disclosure is being madepursuant to the Care Everywhere program and may not contain all information available regarding this patient. Last updated 17.[facility] Allergies Active Allergy Reactions Criticality Noted Date [...] Active vitamin D, ergocalciferol, (DRISDOL) 1.25 MG (71897 UT) capsule Take 1 (one) capsule by [...] 03/22/2021 Assessment & Plan (03/22/2021 9:14 AM TECHNOLOGY TRAINER): Previous diagnosis of s eronegative rheumatoid arthritis [...] will clinically reassess again in 3 months. terminal superintendent systemic steroid user 03/22/2021 Assessment & Plan (06/20/2021 9:05 AM CDT): Will need repeated routine monitoring lab including CBC with differential and CMP for continued use of methotrexate and Olumiant. Assessment & Plan (03/22/2021 9:16 AM TECHNOLOGY TRAINER): On a combination of methotrexate and Olumient [...] 03/01/2020 Assessment & Plan (03/22/2021 9:18 AM TECHNOLOGY TRAINER): She requested additional refills of gabapentin which [...] Encounters Date Type Department Care Team Description 06/09/2024 Orders Only [facility] Rheumatology [address] [place] [address], [facility] [address] [place] [id number] Luis Trevino DO terminal superintendent (current) use of janus kinase inhibitor; Elevated liver enzymes 05/28/2024 8:40 AM CDT Office Visit [address], [address] [place] [phone] Luis Trevino DO Rheumatoid arthritis, seronegative, multiple sites (Primary Dx); Generalized osteoarthritis of multiple sites; Fibromyalgia syndrome; Chronic bilateral low back pain with bilateral sciatica; Elevated AST (SGOT) 05/18/2024 Refill [facility] Rheumatology [address] [place] [address], [address] [place] [address] Luis Trevino DO MEDICATION REFILL 05/13/2024 Orders Only [facility] Rheumatology [address] [place] [address], [address] [place] [address] Luis Trevino, penitentiary (current) use of janus kinase inhibitor ; Elevated liver enzymes 05/08/2024 Orders Only [facility] Rheumatology [address] [facility], [address] [place] [address] Luis Trevino, penitentiary (current) use of janus kinase inhibitor 03/25/[address], [address] [place] [address] Luis Trevino, Medication Prior Auth Request 03/23/2024 Refill [facility] [address] [place] [address], [address] [place] [address] Luis Trevino, MEDICATION REFILL 03/16/2024 Refill [facility] [address] [place] [address], [address] [place] [address] Luis Trevino, MEDICATION REFILL from Last 3 Months Immunizations Name Administration Dates Next Due [employer] primary monoval ent 12+ yr 0.3mL Purple [...] Description 11/26/2024 10:00 AM CDT Office Visit [facility] - Rheumatology [address] [facility], [address] [place] [address] Uriel LuisDO [address] [facility] [address] [place] [address] Health Maintenance Due Date Last [...] exists BONE DENSITY TESTING Completed 01/14/2023, 01/03/20 INFLUENZA VACCINE Completed 12/03/2023, , 01/25/2022, Additional [...] this topic Medical Devices Implanted Type Area Lumber Marker Device Identifier Shelf Expiration Date Model / Serial / Lot Baseplate Implanted:Qty: 1 on 02/15/2020 by Nitin Zarate MD at [facility] Right: Shoulder [employer] 10/08/2024 AR-9560-24- 2 / [id number] Description:CC Glenosphere Implanted:Qty: 1 on 02/15/2020 by Nitin Zarate MD at [facility] Right: Shoulder [employer] 01/09/2024 AR-9564-243 - [id number] Description:CC Central Screw Implanted:Qty: 1 on 02/15/2020 by Nitin Zarate MD at [facility] Right: Shoulder [employer] 09/08/2023 AR-9561-30S / / [id number] Description:CC Peripheral Screw Implanted:Qty: 3 on 02/15/2020 by Nitin Zarate MD at [facility] Right: Shoulder [employer] 03/10/2024 AR-9563-24 / / [id number] Description:CC Peripheral Screw, Locking Implanted:Qty: 1 on 02/15/2020 by Nitin Zarate MD at [facility] Right: Shoulder [employer] 04/10/2024 [id number] Description:CC Suturecup Implanted:Qty: 1 on 02/15/2020 by Nitin Zarate MD at [facility] Right: Shoulder [employer] 07/08/2024 AR-9502F-36 MIDWIFE / / [id number] Description:CC Humeral Stem Implanted:Qty: 1 on 02/15/2020 by Nitin Zarate MD at [facility] Right: Shoulder [employer] 11/09/2023 AR-9501-09P / / [id number] Description:CC Ins Hum 36mm Univers Revers +3mm Sm Implanted:Qty: 1 on 02/15/2020 by Nitin Zarate MD at [facility] Right: Shoulder [employer] 07/08/2024 AR-9503S-03 .[id number] Description:AK Sys Shld Tot Arthroplast Rev Implanted:Qty: 1 on 02/15/2020 by Nitin Zarate MD at [facility] Right: Shoulder [employer] S4 ARTHREX / / Glenosphere, 39+4 Lat/ 24 Implanted:Qty: 1 on 01/10/2021 by Nitin Zarate MD at [facility] Right: Shoulder [employer] 08/08/2024 AR-9564-243 9-LAT / / [id number] Constrained Combo Humeral Insert, 36 +6c/ 39 Implanted:Qty: 1 on 01/10/2021 by Nitin Zarate MD at [facility] Right: Shoulder [employer] 03/10/2024 AR-9503-363 9-6C / [id number] Procedures Procedure Name Priority Date/Time Associated Diagnosis Comments COMPREHENSIVE METABOLIC PANEL Routine 05/08/2024 penitentiary (current) use of janus kinase inhibitor CBC W AUTO DIFFERENTIAL Routine 05/08/2024 terminal superintendent (current) use of janus kinase inhibitor COMPREHENSIVE METABOLIC PANEL Routine 03/23/2024 terminal superintendent (current) use of janus kinase inhibitor CBC W AUTO DIFFERENTIAL Routine 03/23/2024 penitentiary (current) use of janus kinase inhibitor DEXA BONE DENSITY AXIAL SKELETON Routine 01/14/2023 penitentiary systemic steroid user from Last 3 Months or Most Recently Relevant to Health Maintenance Results * CBC WITH DIFFERENTIAL (05/08/2024) Only the most recent of2 resultswithin the time period is included. Blood BLOOD SPECIMEN / Unknown Luis Trevino DO LAB - HEMATOLOGY ORD ERABLES OTHER LAB * COMPREHENSIVE METABOLIC PANEL (05/08/2024) Only the most recent of2 resultswithin the time period is included. Blood BLOOD SPECIMEN / Unknown Luis Trevino DO LAB - CHEMISTRY ORDE RABLES OTHER LAB * DEXA BONE DENSITY AXIAL SKELETON (01/14/2023) Anatomical Region Laterality Modality Other Luis Trevino DO DEXA ORDERABLES from Last 3 Months or Most Recently Relevant to Health Maintenance Care Teams Program Director/Traffic Director Relationship Specialty Start Date End Date Dennise Rose, PAAdonisC [address] [facility] [place] [address] PCP - General Physician Coremaker 12/22/20 Errol Babb MD Primary Care Provider Internal Medicine 12/18/19 Marya Herring APRN-GALE [address] [place] [phone] Nurse Practitioner Family 01/28/23
[2024-06-09 11:34] LABS: Alanine Aminotransferase 28 U/L (14-59); Aspartate Amino Transferase 25 U/L (15-37); Cholesterol 182 mg/dL (0-200); Ferritin 43 ng/mL (8-252); HDL Direct 79 mg/dL (40-60); Iron 60 ug/dL (50-170); LDL Cholesterol Calculated 71 mg/dL (<130); Percent Iron Saturation 16 % (12-57); Triglycerides 161 mg/dL (0-150)
[2024-06-09 12:12] LABS: Folic Acid > 20.0 ng/mL (8.6->20); Vitamin B12 > 2000 pg/mL (193-986)
[2024-06-11 02:19] LABS: Vitamin D 25 Hydroxy 48 ng/mL (30-100)
== END 2024-06-09 10:08 | disposition home or self-care (01) ==
PROVIDERS: PCP Nurse Practitioner Family; Visit Provider Nurse Practitioner Family
DX: R74.8 Abnormal levels of other serum enzymes (principal); Z79.622 Long term (current) use of Janus kinase inhibitor; R53.83 Other fatigue; E78.5 Hyperlipidemia, unspecified; E55.9 Vitamin D deficiency, unspecified; R73.9 Hyperglycemia, unspecified
CPT/HCPCS: 36415; 36591; 80061; 82306; 82607; 82728; 82746; 83036; 83540; 83550; 84450; 84460

== ENCOUNTER 2024-08-19 10:34 | Outpatient (CLI) | payer MEDICARE, SELFPAY ==
[2024-08-19 11:34] LABS: Basophils Absolute Auto 0.05 K/mm3 (0.00-0.10); Basophils Percent Auto 0.5 % (0.0-1.0); Eosinophils Absolute Auto 0.36 K/mm3 (0.02-0.50); Eosinophils Percent Auto 3.7 % (1.0-6.0); Hematocrit 35.9 % (35.0-42.0); Hemoglobin 11.6 g/dL (11.7-13.8); Immature Granulocyte Absolute 0.05 K/mm3 (0.00-0.00); Immature Granulocyte Percent A 0.5 % (0.0-0.0); Lymphocytes Absolute Auto 2.69 K/mm3 (1.10-4.50); Lymphocytes Percent Auto 27.7 % (18.0-42.0); Mean Corpuscular HGB Conc 32.3 g/dL (32-36); Mean Corpuscular Hemoglobin 32.2 pg (27.0-31.0); Mean Corpuscular Volume 99.7 fL (78.0-102.0); Mean Platelet Volume 10.2 fl (9.2-11.8); Monocytes Percent Auto 8.2 % (2.0-11.0); Neutrophils Absolute Auto 5.76 K/mm3 (1.70-7.20); Neutrophils Percent Auto 59.4 % (50.0-70.0); Platelet Count Result 305 K/mm3 (150-420); Red Cell Distribution Width 15.9 % (11.6-14.4); White Blood Count 9.7 K/mm3 (4.8-10.8)
[2024-08-19 11:56] LABS: Alanine Aminotransferase 26 U/L (6-35); Albumin Level 4.2 g/dL (3.5-5.1); Alkaline Phosphatase 64 U/L (38-126); Anion Gap 1 mmol/L (4-12); Aspartate Amino Transferase 35 U/L (14-36); Bilirubin,Total 0.6 mg/dL (0.2-1.3); Blood Urea Nitrogen 23 mg/dL (7-17); Calcium 8.9 mg/dL (8.4-10.2); Carbon Dioxide 31 mmol/L (22-30); Chloride 104 mmol/L (98-107); Estimated Glomerular Filt Rate > 60; Glucose 78 mg/dL (65-110); Osmolality Calculated 284 mOsm/kg (285-295); Potassium 4.4 mmol/L (3.4-5.0); Sodium 136 mmol/L (137-145)
--- OUTSIDE RECORDS SUMMARY | 2024-08-19 12:35 | XMS_ITS | Encounter Summary ---
Author Organization [facility] Address [address] [facility] [place] [address] Care Team Providers Care Industrial Engineering Name Role Phone Errol Babb MD Unavailable [phone] Dennise Rose PA-C Primary Care Provider [phone] NimaMarya pichardo PROCESSING ENGINEER-WEB METHODS DEVELOPER Unavailable + Marya Allred Unavailable [phone] Nima, Marya Artem PROCESSING ENGINEER-WEB METHODS DEVELOPER Unavailable + Encounter Details Date Type Department Care Team (Late st Contact Info) Description 12/18/2021 Telephone [facility] - Rheumatology [address] [facility], [facility] [address] [place] [address] Luis Trevino DO [address] [facility] [address] [place] [address] Social History Tobacco Use Types [...] on one occasion? Less than monthly 02/15/2020 Comments No Sex and Gender Information Value Date Recorded Sex Assigned at Not on file Legal Sex Female 7:11 AM CDT Gender Identity Not on file Sexual Orientation Not on file Occupation Industry Job Start Date Job End Date disablility Not on file Not on file Not on file documented as of this encounter Miscellaneous Notes * Telephone Encounter - Nalini Newberry RPhT - 02/21/2022 10:06 AM EXPLOSIVE SPECIALIST A second appeal has been file w/additional chart notes OSIVE SPECIALIST * Telephone Encounter - Nalini Newberry RPhT - 01/03/2022 10:39 AM CDT The appeal for Olumiant tabs has been filed@ [phone]. * Telephone Encounter - Nalini Newberry RPhT - 12/20/2021 2:08 PM CDT Another PA has been filed w/additional chart notes by fax@ [phone]. Medication Prior Authorization Medication: Olumiant Status: Denied Submitted via: Fax #[phone] Insurance: [employer]adimir Case Number: Nt provided Helpdesk: [phone] * Telephone Encounter - Nalini Newberry RPhT - 12/18/2021 2:36 PM CDT Medication Prior Authorization Medication: Olumiant Status: Submitted - Pending Submitted via: Cover My Meds (Wylie:[id number]) Insurance: Bladimir Case Number: Nt provided. Helpdesk: [phone] documented in this encounter Plan of Treatment Upcoming Encounters Date Type Department Care Team (Late st Contact Info) Description 11/26/2024 10:00 AM CDT Office Visit [facility] - Rheumatology [address] [place] [address], [address] [place] [address] Luis Trevino DO [address] [place] [address] documented as of this encounter Visit Diagnoses Not on filedocumented in this encounter Care Teams Industrial Engineering Relationship Specialty Start Date End Date Dennise Rose, PAAdonisC [address] [place] [address] PCP - General Physician Systems Testing Laboratory Technician 12/22/20 Errol Babb MD Primary Care Provider Internal Medicine 12/18/19 Marya Herring APRN-CNP [address] [place] [phone] Nurse Practitioner Family 01/28/23 01/28/23 Marya Allred [address] [place] [id number] Vascular Surgery 01/28/23 01/28/23 Marya Herring APRN-CNP [address] [place] [phone] Nurse Practitioner Family 01/28/23 documented as of this encounter
--- OUTSIDE RECORDS SUMMARY | 2024-08-19 12:35 | XMS_ITS | Clinical Summary ---
Author Organization [facility] Address [address] [facility], [place] [address] Phone Care Team Providers Care Shipboard Intelligence Analyst Name Role Phone Mathew Rutherford MD Primary Care Provider [phone] Jose Bailey DPM Unavailable [phone] Allergies Active Allergy Reactions Criticality Noted [...] 11:25 PM CDT Height 177.8 cm (5' 10) 09/21/2016 1:20 PM CDT Body Mass Index [...] measures to stabilize the patient. Care Teams Shipboard Intelligence Analyst Relationship Specialty Start Date End Date Mathew Rutherford MD PCP - General Internal Medicine 04/13/16 Jose Bailey DPM Podiatry 04/26/16
--- OUTSIDE RECORDS SUMMARY | 2024-08-19 12:35 | XMS_ITS | Continuity of Care Document ---
Author Organization [facility] Address [address] [place] [address] Phone Care Team Providers Care Line Tender Flakeboard Name Role Phone Kraig Moreland DO Unavailable Unavailable Advance Directives Directive Yes / No Effective Date File Name No Information Encounters Encounter Description Practice Location Reason(s) For Visit Diagnoses Date Provider Providers Copied on Encounter [facility], [address], [place], [place], [id number], [place] tel:[phone] [facility] No Information Aniceto Reddy. [address] [facility], [place], [address], [place]. tel:[phone] Family History Family Member Type Diagnosis Age At Onset No Information Payers Payer name Insurance type Covered republican ID Authoriza tion(s) [facility] Commercial [id number] Social History Type Description Quantity Date Captured [...]
--- OUTSIDE RECORDS SUMMARY | 2024-08-19 12:35 | XMS_ITS | Clinical Summary ---
Author Organization [facility] Address [address] [address] Care Team Providers Care Stock Associate Name Role Phone Errol Babb MD Unavailable [phone] Dennise Rose PA-C Primary Care Provider [phone] Marya Herring BACTERIOLOGY RESEARCH ASSISTANT-CHIEF HOSPITAL ADMINISTRATOR Unavailable + Source Comments [facility],non-owned Affiliates and Associated Physician Practices is amultiple site organization consisting of ambulatory clinics and hospital sitesin [place], [place] and [place]. This disclosure is being madepursuant to the Care Everywhere program and may not contain all information available regarding this patient. Last updated 17.[facility] Allergies Active Allergy Reactions Criticality Noted Date Comments Levofloxacin Other High 07/29/2017 Other reaction(s): Hives Sulfa Drugs Hematologic High 10/28/2018 Other reaction(s): Hives Sulfamethoxazole W-Trimethoprim Other High 04/26/2016 Causes sores all over body Causes sores all over body Medications * Be aware that medications may not be up to date on this document. Alwaysverify current medications with the patient. Multiple Vitamins-Lead Tinner als (MULTIVITAMIN ADULT PO) Take 1 tablet by mouth once daily Active Calcium Carb-Cholecalc iferol (CALCIUM 1000 + D PO) Take 1 tablet by mouth as directed Active cyanocobalamin (VITAMIN B-12) 500 MCG tablet Take 1 (one) tablet by mouth once daily Activ e vitamin C (ASCORBIC ACID) 1000 MG tablet Take 1 (one) tablet by mouth once daily Activ e Potassium 99 MG tablet Take 1 (one) tablet by mouth once daily Activ e albuterol HFA (PROVENTIL; VENTOLIN; PROAIR) 108 (90 Base) MCG/ACT inhaler Inhale 2 (two) puffs by mouth every 6 hours as needed Active traZODone (DESYREL) 100 MG tablet Take 1 (one) tablet by mouth at bedtime 02/18/20 20 Active SYMBICORT 160-4.5 MCG/ACT inhaler Inhale 2 (two) puffs by mouth 2 times daily 04/19/19 21 Active vitamin D, ergocalciferol , (DRISDOL) 1.25 MG (66666 UT) capsule Take 1 (one) capsule by mouth as directed 04/17/19 21 Active ezetimibe (ZETIA) 10 MG tablet Take 1 (one) tablet by mouth once daily 04/19/19 21 Active atorvastatin (Lipitor) 40 MG tablet Take 1 (one) tablet by mouth once daily 01/26/20 22 Active acyclovir (Zovirax) 400 MG tablet Take 1 (one) tablet by mouth 2 times daily 09/20/19 23 Active cyclobenzaprin e (Flexeril) 10 MG tablet Take 1 (one) tablet by mouth 3 times daily as needed 10/03/19 23 Active lisinopril-hyd roCHLOROthiazi de (Prinzide; Zestoretic) 20-25 MG tablet Take 1 (one) tablet by mouth once daily 10/31/19 23 Active heparin lock flush 10 UNIT/ML injectionIndic ations:Port-A- Cath in place 1 mL by Intracatheter route as needed (Routine maintenance indwelling venous port care) 1 mL 11 11/28/19 24 Active baricitinib (Olumiant) 2 MG tabletIndicati ons:Rheumatoid Arthritis Take 1 (one) tablet by mouth once daily Reasons: Rheumatoid Arthritis 30 tablet 03/23/19 25 Active DULoxetine (Cymbalta) 60 MG capsuleIndicat ions:Fibromyal wolf Syndrome,Muscu loskeletal Pain Take 1 (one) capsule by mouth once daily Reasons: Fibromyalgia Syndrome, Musculoskeletal Pain 90 capsule 3 05/29/19 25 Active pregabalin (Lyrica) 100 MG capsuleIndicat ions:Fibromyal wolf Syndrome,Chron ic lumbar spinal pain. Take 1 (one) capsule by mouth 3 times daily For chronic lumbar spinal pain. Reasons: Fibromyalgia Syndrome, Chronic lumbar spinal pain. 90 capsule 5 05/29/19 25 Active predniSONE (Deltasone) 5 MG tabletIndicati ons:Rheumatoid Arthritis Take 1 (one) tablet by mouth every morning Reasons: Rheumatoid Arthritis 90 tablet 08/15/19 25 Active predniSONE (Deltasone) 5 MG tabletIndicati ons:Rheumatoid Arthritis Take 1 (one) tablet by mouth every morning Reasons: Rheumatoid Arthritis 90 tablet 05/19/19 25 025 Discontin ued(Reord er) Active Problems Problem Noted Date Diagnosed Date [...] 03/22/2021 Assessment & Plan (03/22/2021 9:14 AM SUPERVISOR BLAST FURNACE): Previous diagnosis of s eronegative rheumatoid arthritis [...] will clinically reassess again in 3 months. [facility] systemic steroid user 03/22/2021 Assessment & Plan (06/20/2021 9:05 AM CDT): Will need repeated routine monitoring lab including CBC with differential and CMP for continued use of methotrexate and Olumiant. Assessment & Plan (03/22/2021 9:16 AM SUPERVISOR BLAST FURNACE): On a combination of methotrexate and Olumient [...] 03/01/2020 Assessment & Plan (03/22/2021 9:18 AM SUPERVISOR BLAST FURNACE): She requested additional refills of gabapentin which [...] Encounters Date Type Department Care Team Description 08/14/2024 Refill [facility] - Rheumatology [address] [place] [address], [address] [place] [address] Luis Trevino DO MEDICATION REFILL 07/31/2024 Orders Only [facility] - Rheumatology [address] [place] [address], [address] [place] [address] Luis Trevino DO intermediate project manager (current) use of janus kinase inhibitor 06/09/2024 Orders Only [facility] - Rheumatology [address] [place] [address], [address] [place] [address] Luis Trevino DO intermediate project manager (current) use of janus kinase inhibitor; Elevated liver enzymes 05/28/2024 8:40 AM CDT Office Visit [facility] - Rheumatology [address] [place] [address], [address] [place] [address] Luis Trevino DO Rheumatoid arthritis, seronegative, multiple sites (Primary Dx); Generalized osteoarthritis of multiple sites; Fibromyalgia syndrome; Chronic bilateral low back pain with bilateral sciatica; Elevated AST (SGOT) from Last 3 Months Immunizations Immunization Administration Dates Next Due Fanshout primary monoval ent 12+ yr 0.3mL Purple [...] Recorded Patient Health Questionnaire-2 Score 0 05/28/2024 Comments No Sex and Gender Information Value Date Recorded Sex Assigned at Not on file Legal Sex Female 7:11 AM CDT Gender Identity Not on file Sexual Orientation Not on file Occupation Industry Job Start Date Job End Date disablility Not on file Not on file Not on file Last Filed Vital Signs [...] 8:40 AM CDT Height 175.3 cm (5' 9) 11/28/2023 8:43 AM CDT Body Mass Index 26.29 11/28/2023 8:43 AM CDT Plan of Treatment Upcoming Encounters Date Type Department Care Team (Late st Contact Info) Description 11/26/2024 10:00 AM CDT Office Visit [facility] - Rheumatology [address], [address] [place] [address] Luis Trevino DO [address] [place] [address] Health Maintenance Due Date Last [...] PAP SMEAR 09/27/2025 09/27/2022 SCREENING FOR DIABETES 06/10/2027 , 05/08/2024, 03/23/2024, Additional history exists DTAP/TDAP/TD VACCINES (7 - [...] this topic Medical Devices Implanted Type Area Trimmer Meat Device Identifier Shelf Expiration Date Model / Serial / Lot Baseplate Implanted:Qty: 1 on 02/15/2020 by Nitin Zarate MD at [facility] [place] Right: Shoulder [employer] 10/08/2024 AR-9560-24- 2 / / [id number] Description:CC Glenosphere Implanted:Qty: 1 on 02/15/2020 by Nitin Zarate MD at [facility] [place] Right: Shoulder [employer] 01/09/2024 AR-9564-243 6-LAT / / .[id number] Description:CC Central Screw Implanted:Qty: 1 on 02/15/2020 by Nitin Zarate MD at [facility] [place] Right: Shoulder [employer] 09/08/2023 AR-9561-30S / / [id number] Description:CC Peripheral Screw Implanted:Qty: 3 on 02/15/2020 by Nitin Zarate MD at [facility] [place] Right: Shoulder [employer] 03/10/2024 AR-9563-24 / / [id number] Description:CC Peripheral Screw, Locking Implanted:Qty: 1 on 02/15/2020 by Nitin Zarate MD at [facility] [place] Right: Shoulder [employer] 04/10/2024 AR-9563-20 / / [id number] Description:CC Suturecup Implanted:Qty: 1 on 02/15/2020 by Nitin Zarate MD at [facility] [place] Right: Shoulder [employer] 07/08/2024 AR-9502F-36 DRUG CLERK / / [id number] Description:CC Humeral Stem Implanted:Qty: 1 on 02/15/2020 by Nitin Zarate MD at [facility] [place] Right: Shoulder [employer] 11/09/2023 AR-9501-09P / / [id number] Description:CC Ins Hum 36mm Univers Revers +3mm Sm Implanted:Qty: 1 on 02/15/2020 by Nitin Zarate MD at [facility] [place] Right: Shoulder [employer] 07/08/2024 AR-9503S-03 / .[id number] Description:AK Sys Shld Tot Arthroplast Rev Implanted:Qty: 1 on 02/15/2020 by Nitin Zarate MD at [facility] [place] Right: Shoulder [employer] S4 ARTHREX / / Glenosphere, 39+4 Lat/ 24 Implanted:Qty: 1 on 01/10/2021 by Nitin Zarate MD at [facility] Right: Shoulder [employer] 08/08/2024 AR-9564-243 9-LAT / / [id number] Constrained Combo Humeral Insert, 36 +6c/ 39 Implanted:Qty: 1 on 01/10/2021 by Nitin Zarate MD at [facility] Right: Shoulder [employer] 03/10/2024 AR-9503-363 9-6C / / [id number] Procedures Procedure Name Priority Date/Time Associated Diagnosis Comments HEMOGLOBIN A1C (EXT RESULT ENTRY) Routine 06/09/2024 3:23 PM CDT FOLATE Routine 06/09/2024 10:32 AM CDT VITAMIN B12 Routine 06/09/2024 10:32 AM CDT LIPID PROFILE Routine 06/09/2024 10:31 AM CDT IRON + TIBC PANEL Routine 06/09/2024 10: 31 AM CDT VITAMIN D 25-HYDROXY Routine 06/09/2024 8:01 AM CDT VITAMIN D 1,25 DIHYDROXY Routine 06/09/2024 8:00 AM CDT ALT AST Routine 06/09/2024 intermediate project manager (current) use of janus kinase inhibitor Elevated liver enzymes DEXA BONE DENSITY AXIAL SKELETON Routine 01/14/2023 intermediate project manager systemic steroid user from Last 3 Months or Most Recently Relevant to Health Maintenance Results * HEMOGLOBIN A1C (EXT RESULT ENTRY) (06/09/2024 3:23 PM CDT) Blood BLOOD SPECIMEN / Unknown us Scanned Document LAB - CHEMISTRY ORDERABLES Erna l Result * FOLATE (06/09/2024 10:32 AM CDT) Blood BLOOD SPECIMEN / Unknown us Scanned Document LAB - CHEMISTRY ORDERABLES Erna l Result * VITAMIN B12 (06/09/2024 10:32 AM CDT) Blood BLOOD SPECIMEN / Unknown us Scanned Document LAB - CHEMISTRY ORDERABLES Erna l Result * LIPID PROFILE (06/09/2024 10:31 AM CDT) Blood BLOOD SPECIMEN / Unknown us Scanned Document LAB - CHEMISTRY ORDERABLES Erna l Result * IRON + TIBC PANEL (06/09/2024 10:31 AM CDT) Blood BLOOD SPECIMEN / Unknown us Scanned Document LAB - CHEMISTRY ORDERABLES Erna l Result * VITAMIN D 25-HYDROXY (06/09/2024 8:01 AM CDT) Blood BLOOD SPECIMEN / Unknown us Scanned Document LAB - CHEMISTRY ORDERABLES Erna l Result * VITAMIN D 1,25 DIHYDROXY (06/09/2024 8:00 AM CDT) Blood BLOOD SPECIMEN / Unknown us Scanned Document LAB - CHEMISTRY ORDERABLES Erna l Result * ALT AST (06/09/2024) Blood BLOOD SPECIMEN / Unknown us Luis Trevino DO LAB - CHEMISTRY ORDERABLES Final Result OTHER LAB * DEXA BONE DENSITY AXIAL SKELETON (01/14/2023) Anatomical Region Laterality Modality Other Luis Uriel FORREST DEXA ORDERABLES Final Result from Last 3 Months or Most Recently Relevant to Health Maintenance Insurance [facility] [employer] MANAGED MEDICARE ADV Care Teams Stock Associate Relationship Specialty Start Date End Date Dennise Rsoe PA-C [address] [place] [address] PCP - General Physician Biometry Teacher 12/22/20 Errol Babb MD Primary Care Provider Internal Medicine 12/18/19 Marya Herring, [facility] ADMINISTR[facility] [address] [place] [phone] Nurse Practitioner Family 01/28/23
== END 2024-08-19 10:35 | disposition home or self-care (01) ==
LOC: CHSLAB 10:42
PROVIDERS: PCP Nurse Practitioner Family
DX: Z79.622 Long term (current) use of Janus kinase inhibitor (principal)
CPT/HCPCS: 36415; 80053; 85025

== ENCOUNTER 2024-10-28 09:06 | Outpatient (CLI) | payer MEDICARE, SELFPAY ==
--- OUTSIDE RECORDS SUMMARY | 2002-08-20 08:00 | XMS_ITS | Continuity of Care Document ---
Author Organization [facility] Address [address] [place] [address] Phone Care Team Providers Care Small Products I Assembler Name Role Phone Kraig Moreland DO Unavailable Unavailable Advance Directives Directive Yes / No Effective Date File Name No Information Encounters Encounter Description Practice Location Reason(s) For Visit Diagnoses Date Provider Providers Copied on Encounter [facility], [address], [place], [place], [id number], [place] tel:[phone] [facility] No Information Aniceto Reddy. [address] [facility], [place], [address], [place]. tel:[phone] Family History Family Member Type Diagnosis Age At Onset No Information Payers Payer name Insurance type Covered republican ID Authoriza tion(s) [facility] Commercial [id number] Social History Type Description Quantity Date Captured [...]
--- OUTSIDE RECORDS SUMMARY | 2024-10-28 09:18 | XMS_ITS | Encounter Summary ---
Author Organization [facility] Address [address] [place] [address] Care Team Providers Care Acquisition Marketing Manager Name Role Phone Errol Babb MD Unavailable Dennise Rose PA-C Primary Care Provider [phone] NimaMarya pichardo TUBE STATION ATTENDANT-SUPERVISOR GRAPHITE Unavailable + Marya Allred Unavailable [phone] Nima, Marya Artem TUBE STATION ATTENDANT-SUPERVISOR GRAPHITE Unavailable + Encounter Details Date Type Department Care Team (Late st Contact Info) Description 12/18/2021 Telephone [facility] - Rheumatology [address] [facility] [facility] [address] [place] [address] Luis Trevino DO [address] [facility] [facility] [address] [place] [address] Social History Tobacco Use Types [...] Nalini Newberry RPhT - 02/21/2022 10:06 AM JUMPBASTING LINING BASTER A second appeal has been file w/additional chart notes BASTING LINING BASTER * Telephone Encounter - Nalini Newberry RPhT - 01/03/2022 10:39 AM CDT The appeal for Olumiant tabs has been filed@ [phone]. * Telephone Encounter - Nalini Newberry RPhT - 12/20/2021 2:08 PM CDT Another PA has been filed w/additional chart notes by fax@ [phone]. Medication Prior Authorization Medication: Olumiant Status: Denied Submitted via: Fax #[phone] Insurance: Bladimir Case Number: Nt provided Helpdesk: [phone] * Telephone Encounter - Nalini Newberry RPhT - 12/18/2021 2:36 PM CDT Medication Prior Authorization Medication: Olumiant Status: Submitted - Pending Submitted via: Cover My Meds (Wylie:[id number]) Insurance: Bladimir Case Number: Nt provided. Helpdesk: [phone] documented in this encounter Plan of Treatment Upcoming Encounters Date Type Department Care Team (Late st Contact Info) Description 11/26/2024 10:00 AM CDT Office Visit [facility] - Rheumatology [address] [place] [address], [address] [place] [address] Luis Trevino DO [address] [place] [address] documented as of this encounter Visit Diagnoses Not on filedocumented in this encounter Care Teams Acquisition Marketing Manager Relationship Specialty Start Date End Date Dennise Rose, PAAdonisC [address] [place] [address] PCP - General Physician Electrician Supervisor 12/22/20 Errol Babb MD Primary Care Provider Internal Medicine 12/18/19 Marya Herring APRN-CNP [address] [place] [phone] Nurse Practitioner Family 01/28/23 01/28/23 Marya Allred [address] [place] [id number] Vascular Surgery 01/28/23 01/28/23 Marya Herring APRN-CNP [address] [place] [phone] Nurse Practitioner Family 01/28/23 documented as of this encounter
--- OUTSIDE RECORDS SUMMARY | 2024-10-28 09:18 | XMS_ITS | Clinical Summary ---
Author Organization [facility] Address [address] [place] [address] Care Team Providers Care Manual Machinist Name Role Phone Errol Babb MD Unavailable [phone] Dennise Rose PA-C Primary Care Provider [phone] Marya Herring RADIO MAINTAINER-SENIOR DATA SCIENTIST Unavailable + Source Comments [facility],non-owned Affiliates and Associated Physician Practices is amultiple site organization consisting of ambulatory clinics and hospital sitesin [place], [place], [place] and [place]. This disclosure is being madepursuant to the Care Everywhere program and may not contain all information available regarding this patient. Last updated 17.[facility] Allergies Active Allergy Reactions Criticality Noted Date Comments Levofloxacin Other High 07/29/2017 Other reaction(s): Hives Sulfa Drugs Hematologic High 10/28/2018 Other reaction(s): Hives Sulfamethoxazole W-Trimethoprim Other High 04/26/2016 Causes sores all over body Causes sores all over body Medications * Be aware that medications may not be up to date on this document. Alwaysverify current medications with the patient. Multiple Vitamins-Abattoir Supervisor als (MULTIVITAMIN ADULT PO) Take 1 tablet [...] vitamin D, ergocalciferol , (DRISDOL) 1.25 MG (98701 UT) capsule Take 1 (one) capsule by [...] Rheumatoid Arthritis 90 tablet 08/15/19 25 Active Active Problems Problem Noted Date Diagnosed [...] 03/22/2021 Assessment & Plan (03/22/2021 9:14 AM FITTING ROOM ATTENDANT): Previous diagnosis of s eronegative rheumatoid arthritis [...] will clinically reassess again in 3 months. detention systemic steroid user 03/22/2021 Assessment & Plan (06/20/2021 9:05 AM CDT): Will need repeated routine monitoring lab including CBC with differential and CMP for continued use of methotrexate and Olumiant. Assessment & Plan (03/22/2021 9:16 AM FITTING ROOM ATTENDANT): On a combination of methotrexate and Olumient [...] 03/01/2020 Assessment & Plan (03/22/2021 9:18 AM FITTING ROOM ATTENDANT): She requested additional refills of gabapentin which [...] Encounters Date Type Department Care Team Description 08/19/2024 Results Follow-Up [facility] Rheumatology [address] [place] [address], [address] [place] [address] Luis Trevino DO 08/14/[address], [address] [place] [address] Luis Trevino DO MEDICATION REFILL 07/31/2024 Orders Only [facility] Rheumatology [address] [place] [address], [address] [place] [address] Luis Trevino DO detention (current) use of janus kinase inhibitor from Last 3 Months Immunizations Immunization Administration Dates Next Due [employer] primary monoval ent 12+ yr 0.3mL Purple [...] Description 11/26/2024 10:00 AM CDT Office Visit [facility] - Rheumatology [address], [address] [place] [address] Luis Trevino DO [address] [place] [address] Health Maintenance Due Date Last [...] history exists MEDICARE AWV CALENDAR YEAR 2024 INFLUENZA VACCINE (#1) 2024 , 02/04/2023, 01/25/2022, Additional history exists MAMMOGRAM 01/02/2025 01/02/2023, 12/10, 12/20/2021, Additional history exists COLOGUARD (AGES 45-75) - COLON CA SCREENING 09/03/2025 09/03/2022, 04/29/2019 Colorectal Cancer Screening 09/03/2025 PAP SMEAR 09/27/2025 09/27/2022 SCREENING FOR DIABETES 08/20/2027 , 06/09/2024, 05/08/2024, Additional history exists DTAP/TDAP/TD VACCINES (7 - Td or Tdap) 04/21/2028 04/21/2018, 07/15/2003, 07/15/2003, Additional history exists ZOSTER VACCINE Completed 04/16/2018, 08/2018, 01/08/2018, Additional history exists BONE DENSITY TESTING Completed 01/14/2023, 01/03/20 DEPRESSION SCREENING Completed 05/28/2024 HEPATITIS B VACCINE [...] this topic Medical Devices Implanted Type Area Blasting Miner Device Identifier Shelf Expiration Date Model / Serial / Lot Baseplate Implanted:Qty: 1 on 02/15/2020 by Nitin Zarate MD at [facility] Right: Shoulder [employer] 10/08/2024 AR-9560-24- 2 / / [id number] Description:CC Glenosphere Implanted:Qty: 1 on 02/15/2020 by Nitin Zarate MD at [facility] Right: Shoulder [employer] 01/09/2024 AR-9564-243 6-LAT / / [id number] Description:CC Central Screw Implanted:Qty: 1 on 02/15/2020 by Nitin Zarate MD at [facility] Right: Shoulder [employer] 09/08/2023 AR-9561-30S / / [id number] Description:CC Peripheral Screw Implanted:Qty: 3 on 02/15/2020 by Nitin Zarate MD at [facility] Right: Shoulder [employer] 03/10/2024 AR-9563-24 / / [id number] Description:CC Peripheral Screw, Locking Implanted:Qty: 1 on 02/15/2020 by Nitin Zarate MD at [facility] Right: Shoulder [employer] 04/10/2024 AR-9563-20 / / [id number] Description:CC Suturecup Implanted:Qty: 1 on 02/15/2020 by Nitin Zarate MD at [facility] Right: Shoulder [employer] 07/08/2024 AR-9502F-36 BUS AIDE / / [id number] Description:CC Humeral Stem Implanted:Qty: 1 on 02/15/2020 by Nitin Zarate MD at [facility] Right: Shoulder [employer] 11/09/2023 AR-9501-09P / / [id number] Description:CC Ins Hum 36mm Univers Revers +3mm Sm Implanted:Qty: 1 on 02/15/2020 by Nitin Zarate MD at [facility] Right: Shoulder [employer] 07/08/2024 AR-9503S-03 [id number] Description:AK César Leandrald Tot Arthroplast Rev Implanted:Qty: 1 on 02/15/2020 by Nitin Zarate MD at [facility] Right: Shoulder [employer] S4 ARTHREX / / Glenosphere, 39+4 Lat/ 24 Implanted:Qty: 1 on 01/10/2021 by Nitin Zarate MD at [facility] Right: Shoulder [employer] 08/08/2024 AR-9564-243 9-LAT / / [id number] Constrained Combo Humeral Insert, 36 +6c/ 39 Implanted:Qty: 1 on 01/10/2021 by Nitin Zarate MD at [facility] Right: Shoulder [employer] 03/10/2024 AR-9503-363 9-6C / / [id number] Procedures Procedure Name Priority Date/Time Associated Diagnosis Comments COMPREHENSIVE METABOLIC PANEL Routine 08/19/2024 computer terminal operator (current) use of janus kinase inhibitor CBC W AUTO DIFFERENTIAL Routine 08/19/2024 computer terminal operator (current) use of janus kinase inhibitor DEXA BONE DENSITY AXIAL SKELETON Routine 01/14/2023 detention systemic steroid user from Last 3 Months or Most Recently Relevant to Health Maintenance Results * CBC WITH DIFFERENTIAL (08/19/2024) Blood BLOOD SPECIMEN / Unknown Luis Trevino DO LAB - HEMATOLOGY ORDERABLES Erna l Result Performing Organization Address City/[facility]/ZIP Co de Phone Number OTHER LAB * COMPREHENSIVE METABOLIC PANEL (08/19/2024) Blood BLOOD SPECIMEN / Unknown us Luis Trevino DO LAB - CHEMISTRY ORDERABLES Final Result OTHER LAB * DEXA BONE DENSITY AXIAL SKELETON (01/14/2023) Anatomical Region Laterality Modality Other us Luis Trevino DO DEXA ORDERABLES Final Result from Last 3 Months or Most Recently Relevant to Health Maintenance Insurance [facility] MANAGED MEDICARE ADV Care Teams Manual Machinist Relationship Specialty Start Date End Date Dennise Rose PA-C [address] [place] [address] PCP - General Physician Security Shift Manager 12/22/20 Errol Babb MD Primary Care Provider Internal Medicine 12/18/19 Marya Herring APRN-GALE [address] [place] [phone] Nurse Practitioner Family 01/28/23
--- OUTSIDE RECORDS SUMMARY | 2024-10-28 09:18 | XMS_ITS | Clinical Summary ---
Author Organization [facility] Address [address] [facility] [place] [address] Phone Care Team Providers Care Grain Picker Name Role Phone Mathew Rutherford MD Primary Care Provider [phone] Jose Bailey DPM Unavailable [phone] Allergies Active Allergy Reactions Criticality Noted [...] Health Maintenance Due Date Last Done Comments Hepatitis C Virus (HCV) Screening 1960 TdaP Immunization 1960 SARS-COV-2 Immunization (#1) 1964 Zoster Immunization (1 of 2) 1978 Cologuard 2004 Colonoscopy 2004 Colorectal Cancer Screening 2004 Immunochemical Fecal Occult Blood 2004 Pneumococcal Immunization (5 0+ years) (1 of 1 - PCV) 2009 Respiratory Syncytial Virus (RSV) Immunization (Adult) (1 - Risk 60-74 years 1-dose series) 2019 Influenza Immunization (#1) 2024 Hepatitis B Immunization Aged Out No longer eligible based on patient's age to complete this topic Human Papillomavirus (HPV) Immunization Aged Out No longer eligible b ased on patient's age to complete this topic [...] measures to stabilize the patient. Care Teams Grain Picker Relationship Specialty Start Date End Date Mathew Rutherford MD PCP - General Internal Medicine 04/13/16 Jose Bailey DPM Podiatry 04/26/16
--- OUTSIDE RECORDS SUMMARY | 2024-10-28 09:18 | XMS_ITS | Clinical Summary ---
Author Organization [facility] Address [address] [place] [address] Care Team Providers Care Induction Coordination Engineer Name Role Phone Jake Alejandra MD Primary Care Provider [phone] Allergies Active Allergy Reactions Criticality Noted Date [...] Vitamin D, Ergocalciferol, 50 MCG (2000 UT) CapIndications:Fol ate deficiency Take 1 tablet by mouth daily. 90 capsule 06/08/19 21 Active multi vitamin/minerals tabletIndications: Poor nutrition Take 1 tablet by mouth daily. 30 tablet 6 06/14/19 21 Active predniSONE (DELTASONE) 5 mg tablet TAKE 1 TABLET BY MOUTH EVERY MORNING FOR RHEUMATOID ARTHRITIS 08/06/19 22 Active albuterol sulfate HFA 108 (90 Base) MCG/ACT inhalerIndications :Wheezing INHALE TWO (2) PUFFS BY MOUTH EVERY 6 HOURS NEEDED 8.5 g 10 12/01/19 23 Active SYMBICORT 160-4.5 MCG/ACT inhalerIndications :Wheezing INHALE TWO (2) PUFFS BY MOUTH TWICE DAILY 10.2 g 10 03/30/19 24 Active aspirin EC (ECOTRIN) 81 MG tablet daily. Active [place]-3 Fatty Acids (RA FISH OIL) 1000 MG Cap daily. Act feliberto vitamin B-12 (CYANOCOBALAMIN) 500 MCG tablet Take by mouth. Active OLUMIANT 2 MG tablet Take 1 tablet (2 mg total) by mouth daily. 07/11/19 24 Active pregabalin (LYRICA) 100 MG capsuleIndications :Fibromyalgia,Rheu matoid arthritis, involving unspecified site, unspecified whether rheumatoid factor present (CMS/HCC HHS/HCC) Take 1 capsule (100 mg total) by mouth 3 (three) times daily. 90 capsule 07/19/19 24 Active cyclobenzaprine (FLEXERIL) 10 MG tabletIndications: Fibromyalgia TAKE ONE TABLET BY MOUTH THREE TIMES A DAY NEEDED 90 tablet 5 05/19/19 25 Active azithromycin (ZITHROMAX) 500 mg tabletIndications: Other dental procedure status TAKE FOUR TABLETS BY MOUTH TODAY BEFORE DENTIST APPOINTMENT THEN TAKE FOUR TABLETS BY MOUTH PRIOR TO NEXT 8 tablet 1 05/27/19 25 Active acyclovir (ZOVIRAX) 400 MG tabletIndications: Herpes TAKE ONE TABLET BY MOUTH TWICE A DAY 60 tablet 5 06/16/19 25 Active atorvastatin (LIPITOR) 40 MG tabletIndications: Hyperlipidemia, unspecified hyperlipidemia type TAKE ONE TABLET BY MOUTH DAILY 90 tablet 07/24/19 25 Active lisinopril-hydroCH LOROthiazide (ZESTORETIC) 20-25 MG tabletIndications: Primary hypertension TAKE ONE TABLET BY MOUTH DAILY 90 tablet 1 08/08/19 25 Active ezetimibe (ZETIA) 10 MG tabletIndications: Hyperlipidemia, unspecified hyperlipidemia type TAKE ONE TABLET BY MOUTH DAILY 90 tablet 1 08/08/19 25 Active DULoxetine (CYMBALTA) 60 MG capsuleIndications :Anxiety,Fibromyal wolf TAKE ONE CAPSULE BY MOUTH DAILY 90 capsule 1 08/18/19 25 Active traZODone (DESYREL) 100 MG tabletIndications: Insomnia, unspecified type TAKE ONE TABLET BY MOUTH DAILY NEEDED 90 tablet 1 08/18/19 25 Active pentoxifylline CR (TRENTAL) 400 MG tablet Take 1 tablet (400 mg total) by mouth 3 (three) times daily with meals. Pt needs an appt 90 tablet 09/29/19 25 Active Active Problems Problem Noted Date Diagnosed Date Peripheral vascular disease 07/01/2024 Primary osteoarthritis of both hands 11/28/2023 Overview [...] 08/24/2019 Vitamin D deficiency 10/16/2018 Rheumatoid arthritis ([facility]/HCC HHS/HCC) 7 Pain in left foot 04/26/2016 Verruca [...] Traumatic blister of foot 03/01/2020 Septic shock ([facility]) 09/25/2016 05/15/2024 Encounters Date Type Department Care Team Description 09/21/2024 Scan [facility] INFO SRVCS Scanned, Doc [facility] from Last 3 Months Immunizations Immunization Administration Dates Next Due Abrysvo Respiratory Syncytia [...] Sex Assigned at Female 05/15/2024 11:12 AM SCRUBBER SYSTEM ATTENDANT Legal Sex Female 10:50 AM SCRUBBER SYSTEM ATTENDANT Gender Identity Female 05/15/2024 11:12 AM SCRUBBER SYSTEM ATTENDANT Sexual Orientation Not on file Last Filed Vital Signs Vital Sign Reading Time Taken Comments Blood Pressure 180/80 07/01/2024 2:57 PM CDT Pulse 88 07/01/2024 2:57 PM CDT Temperature 36.9 C (98.5 F) 05/15/2024 11:13 AM SCRUBBER SYSTEM ATTENDANT Respiratory Rate 18 05/15/2024 11:13 AM SCRUBBER SYSTEM ATTENDANT Oxygen Saturation 95% 05/15/2024 11:13 AM SCRUBBER SYSTEM ATTENDANT Inhaled Oxygen Concentration - - Weight 81.6 kg (180 lb) 07/01/2024 2:57 PM CDT Height 175.3 cm (5' 9) 07/01/2024 2:57 PM CDT Body Mass Index 26.58 07/01/2024 2:57 PM CDT Plan of Treatment Health Maintenance Due Date Last Done Comments COVID-19 Vaccine ( season) 2024 12/03/2023, 02/04/2023, 01/25/2022, Additional history exists Pneumococcal Vaccine: 50+ Years (3 of 3 - PCV20 or PCV21) 05/15/2025 04/21/2018, 01/28/2009 Postponed from 04/21/2023 (Patient Refused) Colorectal Cancer Screening FIT-DNA (3 Years) 09/03/2025 09/03/2022, 09/03/2022, 04/29/2019 Mammogram Screening 06/03/2026 06/03/2024, 06/03/2024, 01/02/2023, Additional history exists DTaP, Tdap and Td Vaccines (2 - Td or Tdap) 04/21/2028 04/21/2018, 07/15/2003, 07/15/2003, Additional history exists Zoster Vaccines Completed 04/16/2018, 01/08/2018 Hepatitis C Completed 06/08/2022, 10/28/2018 Dexa Scan (General) Completed 01/14/2023, 01/14/2023, 01/14/2023 RSV Immunization or 60+ Years Completed 12/03/2023 PHQ-2 (Physician [place]) Completed 05/15/2024 Meningococcal B Vaccine Aged Out No l onger eligible based on patient's age to complete this topic Meningococcal Vaccine Aged Out No catalina walter eligible based on patient's age to complete this topic RSV Immunizations Under 20 Months Aged Out No longer eligible based on patient's age to complete this topic Procedures Procedure Name Priority Date/Time Associated Diagnosis Comments MAMMOGRAM GENERIC (SCAN ORDER) 06/03/2024 BONE DENSITY GENERIC (SCAN ORDER) 01/14/2023 COLOGUARD (EXACT SCIENCE) Routine 09/03/2022 7:30 AM CDT Colon cancer screening from Last 3 Months or Most Recently Relevant to Health Maintenance Results * MAMMOGRAM GENERIC (SCAN ORDER) (06/03/2024) Anatomical Region Laterality Modality Other 06/03/2024 [facility] Scanned SCANNING Final Resu lt * BONE DENSITY GENERIC (01/14/2023) Anatomical Region Laterality Modality Other 01/14/2023 us [facility] Scanned SCANNING Final Resu lt * (ABNORMAL) COLOGUARD (EXACT SCIENCE) (09/03/2022 7:30 AM CDT) COLOGUARD RESULT Positive( A) Negative [facility] (CLIA #:[id number]) Comment: POSITIVE TEST RESULT. A positive Cologuard [...] (Almas Humphries al, N Engl J Med 2014;370(14):3373-3833.) Cologuard may produce a false negative or false positive result (no colorectal cancer or precancerous polyp present at colonoscopy follow up). A negative Cologuard test result does not guarantee the absence of CRC or advanced adenoma (pre-cancer). The current Cologuard screening interval is every 3 years. ([place] Cancer Society and U.S. Multi-Society Task Force). Cologuard performance data in a 10,000 patient pivotal study using colonoscopy as the reference method can be accessed at the following location: [email or web address]/results. Additional description of the Cologuard test process, warnings and precautions can be found at [email or web address]. STOOL STOOL SPECIMEN / Unknown 09/03/2022 7:30 AM CDT 09/05/2022 4:58 PM CDT Dennise VILLARREAL BODY FLUIDS AND STOOLS ORDER MONE Final Result Performing Organization Address City/State/[facility] Co de Phone Number [employer] ([employer] [address]) [address] [place] [address], [facility] (CLIA #:[id number]) [address] [place] [address] from Last 3 Months or Most Recently Relevant to Health Maintenance Insurance Care Teams Induction Coordination Engineer Relationship Specialty [place] [id number] [phone] PCP - General INTERNAL MEDICINE 09/19/24
[2024-10-28 10:13] LABS: Alanine Aminotransferase 27 U/L (6-35); Aspartate Amino Transferase 34 U/L (14-36)
== END 2024-10-28 09:07 | disposition home or self-care (01) ==
PROVIDERS: PCP Nurse Practitioner Family; Visit Provider Internal Medicine Rheumatology
DX: R74.8 Abnormal levels of other serum enzymes (principal); Z79.622 Long term (current) use of Janus kinase inhibitor
CPT/HCPCS: 36591; 84450; 84460

== ENCOUNTER 2025-01-19 10:15 | Outpatient (CLI) | payer MEDICARE, SELFPAY ==
--- OUTSIDE RECORDS SUMMARY | 2002-08-20 07:00 | XMS_ITS | Continuity of Care Document ---
Author Organization [facility] Address [address] [place] [address] Phone Care Team Providers Care Senior Manager Creative Services Name Role Phone Kraig Moreland DO Unavailable Unavailable Advance Directives Directive Yes / No Effective Date File Name No Information Encounters Encounter Description Practice Location Reason(s) For Visit Diagnoses Date Provider Providers Copied on Encounter [facility], [address], [place], [place], [id number], [place] tel:[phone] [facility] No Information Aniceto Reddy. [address] [facility], [place], [address], [place]. tel:[phone] Family History Family Member Type Diagnosis Age At Onset No Information Payers Payer name Insurance type Covered libertarian ID Authoriza tion(s) [facility] Commercial [id number] Social History Type Description Quantity Date Captured Comments Sex Female Smoking Status No Information Chief Complaint And Reason For Visit No Information Reason For Referral Reason For Referral No Information History Of Present Illness Encounter Date Complaint History Of Prese nt Illness No Information Functional Status Date Functional Assessmen t No Information Instructions Date Instruction Additional Infor mation No Information Assessments Type Assessment Date No Information Patient Care Teams Name Effective Dates (start - stop) Status Members No Information
--- NOTE | ~2025-01-19 | DEXA_ITS ---
Bone Density Report Name: FLETCHER NAZARIO Age: 64 Sex: Female Ethnicity: White Date of : 1960 Indication: postmenopausal; screening for osteoporosis; height loss; hysterectomy; rheumatoid arthritis; secondary osteoporosis; Referring Provider: JURGEN, VIMAL Moore Study: Bone densitometry was performed. Exam Date: January 19, 2025 Accession number: [id number] Bone Density: Region BMD T-score Z-score Classification AP Spine(L1, L2, L3) 1.065 0.4 2.2 Normal Femoral Neck (Left) 0.711 -1.2 0.3 Osteopenia Total Hip (Left) 0.902 -0.3 0.9 Normal Femoral Neck (Right) 0.835 -0.1 1.4 Normal Total Hip (Right) 0.892 -0.4 0.9 Normal Femoral Neck Mean 0.773 -0.7 0.9 Normal Total Hip Mean 0.897 -0.4 0.9 Normal World Health Organization criteria for BMD impression classify patients as: Normal (T-score at or above -1.0), Osteopenia (T-score between -1.0 and -2.5), or Osteoporosis (T-score at or below -2.5). 10-year Fracture Risk(1): Major Osteoporotic Fracture 11% Hip Fracture 1.8% Reported Risk Factors: [place] (), Neck BMD=0.711, BMI=27.6, smoking, rheumatoid arthritis, secondary osteoporosis (1) FRAX(R) Version 3.08. Fracture probability calculated for an untreated patient. Fracture probability may be lower if the patient has received treatment. Clinical Information Provided by Patient: Smokes Has rheumatoid arthritis Has secondary osteoporosis Has used the following medications: Vitamin D, Calcium Has the following medical conditions: Hysterectomy Patient maximum height was 71. Menopause Age: 30 No regular weight bearing exercise Drinks caffeinated beverages Onset of menses at age 10 Number of children 2 Impression: The patient has low bone mass, based on the Left Femoral Neck T-score. The patient has risk factors, including: smoking. Discussion: BONE DENSITY IS LOW AT ONE OR MORE SKELETAL SITES. This patient's lowest T-score is low at one or more skeletal sites. It meets the World Health Organization's (WHO) criteria for ?low bone mass? (T-score between -1.0 and -2.5). The patient's 10-year risk of fracture as calculated by FRAX is less than the threshold where pharmacological therapy is recommended by the National Osteoporosis Foundation (NOF). However, all treatment decisions require clinical judgment and consideration of individual patient factors, including patient preferences, comorbidities, previous drug use, risk factors not captured in the FRAX model (e.g., frailty, falls, vitamin D deficiency, increased bone turnover, interval significant decline in bone density) and possible under or overestimation of fracture risk by FRAX. The patient should follow a healthful lifestyle (good nutrition with adequate calcium and vitamin D, and appropriate weight-bearing exercise). Follow-Up: Consider repeating this study in 2 to 3 years to reassess this patient's status, or sooner if there is some new clinical indication. Reported by: NOEMY on 01/19/2025 10:44:00 AM. Reviewed, dictated and finalized at location A.
--- OUTSIDE RECORDS SUMMARY | 2025-01-19 10:49 | XMS_ITS | Clinical Summary ---
Author Organization [facility] Address [address] [facility], [place] [address] Phone Care Team Providers Care President & Ceo Name Role Phone Mathew Rutherford MD Primary Care Provider [phone] Jose Bailey DPM Unavailable [phone] Allergies Active Allergy Reactions Criticality Noted [...] measures to stabilize the patient. Care Teams President & Ceo Relationship Specialty Start Date End Date Mathew Rutherford MD PCP - General Internal Medicine 04/13/16 Jose Bailey DPM Podiatry 04/26/16
--- OUTSIDE RECORDS SUMMARY | 2025-01-19 10:49 | XMS_ITS | Clinical Summary ---
Author Organization [facility] Address [address] [place] [address] Care Team Providers Care Strategic Accounts Manager Name Role Phone Errol Babb MD Unavailable [phone] Marya Herring RIGGER CHIEF-HOME AND SCHOOL VISITOR Unavailable + Sena Washburn RIGGER CHIEF-HOME AND SCHOOL VISITOR Primary Care Provid er Source Comments [facility],non-owned Affiliates and Associated Physician Practices is amultiple site organization consisting of ambulatory clinics and hospital sitesin [place], [place], [place] and [place]. This disclosure is being madepursuant to the Care Everywhere program and may not contain all information available regarding this patient. Last updated 17.[facility] Allergies Active Allergy Reactions Criticality Noted Date Comments Levofloxacin Other,Rash High 07/29/2017 Other reaction(s): Hives Sulfa Antibiotics Rash Medium 01/10/2021 Sulfa Drugs Hematologic High 10/28/2018 Other reaction(s): Hives Sulfamethoxazole W-Trimethoprim Other High 04/26/2016 Causes sores all over body Causes sores all over body Medications * Be aware that medications may not be up to date on this document. Alwaysverify current medications with the patient. Multiple Vitamins-Outside Plant Supervisor als (MULTIVITAMIN ADULT PO) Take 1 [...] vitamin D, ergocalciferol , (DRISDOL) 1.25 MG (91108 UT) capsule Take 1 (one) capsule by [...] Chronic lumbar spinal pain. 90 capsule 5 11/27/19 25 Active predniSONE (Deltasone) 5 MG tabletIndicati ons:Rheumatoid Arthritis Take 1 (one) tablet by mouth every morning Reasons: Rheumatoid Arthritis 90 tablet 01/16/20 25 Active predniSONE (Deltasone) 5 MG tabletIndicati ons:Rheumatoid Arthritis Take 1 (one) tablet by mouth every morning Reasons: Rheumatoid Arthritis 90 tablet 11/14/19 25 025 Discontin ued(Reord er) Active Problems Problem Noted Date Diagnosed Date care home (current) use of janus kinase inhibito r 11/26/2024 Assessment & Plan (11/26/2024 12:28 PM CDT): No findings suggest developing side effects from the use of Olumiant. Continue current treatment plan and recommend routine repeated monitoring laboratory testing every 12 weeks for continued safe use of this medication. Primary osteoarthritis of both hands 11/28/2023 Overview [...] 03/22/2021 Assessment & Plan (03/22/2021 9:14 AM PAPER SORTER AND COUNTER): Previous diagnosis of s eronegative rheumatoid arthritis [...] will clinically reassess again in 3 months. intermediate card tender systemic steroid user 03/22/2021 Assessment & Plan (11/26/2024 12:27 PM CDT): care home use of low dose prednisone with history of RA. Needs 24 month follow up DEXA to compare to 01/2023 testing with only slight right hip osteopenia. Refer to orders provided to schedule outside follow-up DEXA imaging 01/2025. Assessment & Plan (06/20/2021 9:05 AM CDT): Will need repeated routine monitoring lab including CBC with differential and CMP for continued use of methotrexate and Olumiant. Assessment & Plan (03/22/2021 9:16 AM PAPER SORTER AND COUNTER): On a combination of methotrexate and Olumient [...] 03/01/2020 Assessment & Plan (03/22/2021 9:18 AM PAPER SORTER AND COUNTER): She requested additional refills of gabapentin which [...] Encounters Date Type Department Care Team Description 01/15/2025 Refill [facility] - Rheumatology [address] [place] [address], [address] [place] [address] Luis Trevino DO MEDICATION REFILL 11/26/2024 10:00 AM CDT Office Visit [facility] - Rheumatology [address] [place] [address], [address] [place] [address] Luis Trevino DO Rheumatoid arthritis, seronegative, multiple sites (HCC) (Primary Dx); care home systemic steroid user; intermediate card tender (current) use of janus kinase inhibitor; Chronic bilateral low back pain with bilateral sciatica 11/13/2024 Refill [facility] - Rheumatology [address] [facility] [address], [address] [place] [address] Luis Trevino DO MEDICATION REFILL 10/28/2024 Results Follow-Up [facility] - Rheumatology [address], [address] [place] [phone] Luis Trevino DO from Last 3 Months Immunizations Immunization Administration Dates Next Due BitWall primary monoval ent 12+ yr 0.3mL Purple [...] Date Recorded Patient Health Questionnaire-2 Score 0 11/26/2024 Comments No Sex and Gender Information Value Date Recorded Sex Assigned at Not on file Legal Sex Female 7:11 AM CDT Gender Identity Not on file Sexual Orientation Not on file Occupation Industry Job Start Date Job End Date disablility Not on file Not on file Not on file Last Filed Vital Signs Vital Sign Reading Time Taken Comments Blood Pressure 102/60 11/26/2024 9:58 AM CDT Pulse 91 11/26/2024 9:58 AM CDT Temperature 35.6 C (96 F) 11/26/2024 9:58 AM CDT Respiratory Rate 16 11/26/2024 9:58 AM CDT Oxygen Saturation 96% 11/26/2024 9:58 AM CDT Inhaled Oxygen Concentration - - Weight 80.7 kg (178 lb) 11/26/2024 9:58 AM CDT Height 175.3 cm (5' 9) 11/28/2023 8:43 AM CDT Body Mass Index 26.29 11/28/2023 8:43 AM CDT Plan of Treatment Upcoming Encounters Date Type Department Care Team (Late st Contact Info) Description 07/22/2025 10:00 AM CDT Office Visit [facility] - Rheumatology [address] [facility] [address], [address] [place] [address] Luis Trevino DO [address] [facility] [address] [place] [address] Health Maintenance Due Date Last Done [...] PCV20 or PCV21) 04/21/2023 04/21/2018, 01/28/2009, 01/28/2009 MEDICARE AWV CALENDAR YEAR 2024 COVID-19 VACCINE ( - season) 2024 01/25/2022, 07/06/2021, 10/24/2020, Additional history exists INFLUENZA VACCINE (#1) 2024 , 02/04/2023, 01/25/2022, Additional history exists COLOGUARD (AGES 45-75) - COLON CA SCREENING 09/03/2025 09/03/2022, 04/29/2019 Colorectal Cancer Screening 09/03/2025 PAP SMEAR 09/27/2025 09/27/2022 MAMMOGRAM 06/03/2026 06/03/2024, 05/10, 01/02/2023, Additional history exists SCREENING FOR DIABETES 08/20/2027 , 06/09/2024, 05/08/2024, [...] this topic Medical Devices Implanted Type Area Lockstitch Shoulder Joiner Device Identifier Shelf Expiration Date Model / Serial / Lot Baseplate Implanted:Qty: 1 on 02/15/2020 by Nitin Zarate MD at [facility] Right: Shoulder [employer] 10/08/2024 AR-9560-24- 2 / / [id number] Description:CC Glenosphere Implanted:Qty: 1 on 02/15/2020 by Nitin Zarate MD at [facility] Right: Shoulder [employer] 01/09/2024 AR-9564-243 6-LAT / / [id number] Description:CC Central Screw Implanted:Qty: 1 on 02/15/2020 by Nitin Zarate MD at [facility] Right: Shoulder [employer] 09/08/2023 AR-9561-30S / / [id number] Description:CC Peripheral Screw Implanted:Qty: 3 on 02/15/2020 by Nitin Zarate MD at [facility] Right: Shoulder [employer] 03/10/2024 AR-9563-24 / / [id number] Description:CC Peripheral Screw, Locking Implanted:Qty: 1 on 02/15/2020 by Nitin Zarate MD at [facility] Right: Shoulder [employer] 04/10/2024 AR-9563-20 / / [id number] Description:CC Suturecup Implanted:Qty: 1 on 02/15/2020 by Niitn Zarate MD at [facility] Right: Shoulder [employer] 07/08/2024 AR-9502F-36 UMBRELLA SUPERVISOR / / [id number] Description:CC Humeral Stem Implanted:Qty: 1 on 02/15/2020 by Ntiin Zarate MD at [facility] Right: Shoulder [employer] 11/09/2023 AR-9501-09P / / [id number] Description:CC Ins Hum 36mm Univers Revers +3mm Sm Implanted:Qty: 1 on 02/15/2020 by Nitin Zarate MD at [facility] Right: Shoulder [employer] 07/08/2024 AR-9503S-03 / / [id number] Description:AK Sys Shld Tot Arthroplast Rev Implanted:Qty: 1 on 02/15/2020 by Nitin Zarate MD at [facility] Right: Shoulder [employer] S4 ARTHREX / / Glenosphere, 39+4 Lat/ 24 Implanted:Qty: 1 on 01/10/2021 by Nitin Zarate MD at [facility] Right: Shoulder [employer] 08/08/2024 AR-9564-243 9-LAT / / [id number] Constrained Combo Humeral Insert, 36 +6c/ 39 Implanted:Qty: 1 on 01/10/2021 by Nitin Zarate MD at [facility] Right: Shoulder [employer] 03/10/2024 AR-9503-363 9-6C / [id number] Procedures Procedure Name Priority Date/Time Associated Diagnosis Comments ALT Routine 10/28/2024 11:55 AM CDT AST BLOOD (EXT RESULT ENTRY) Routine 10/28/2024 11:55 AM CDT COMPREHENSIVE METABOLIC PANEL Routine 08/19/2024 care home (current) use of janus kinase inhibitor DEXA BONE DENSITY AXIAL SKELETON Routine 01/14/2023 intermediate card tender systemic steroid user from Last 3 Months or Most Recently Relevant to Health Maintenance Results * AST BLOOD (EXT RESULT ENTRY) (10/28/2024 11:55 AM CDT) Blood BLOOD SPECIMEN / Unknown us Scanned Document LAB - CHEMISTRY ORDERABLES Erna l Result * ALT (10/28/2024 11:55 AM CDT) Blood BLOOD SPECIMEN / Unknown us Scanned Document LAB - CHEMISTRY ORDERABLES Erna l Result * COMPREHENSIVE METABOLIC PANEL (08/19/2024) Blood BLOOD SPECIMEN / Unknown Luis Trevino DO LAB - CHEMISTRY ORDERABLES Final Result OTHER LAB * DEXA BONE DENSITY AXIAL SKELETON (01/14/2023) Anatomical Region Laterality Modality Other Luis Trevino DO DEXA ORDERABLES Final Result from Last 3 Months or Most Recently Relevant to Health Maintenance Insurance [facility] UHC MANAGED MEDICARE ADV Care Teams Strategic Accounts Manager Relationship Specialty Start Date End Date Sena Washburn, RIGGER CHIEF-HOME AND SCHOOL VISITOR [address] [place] [address] PCP - General Nurse Practitioner Family 11/26/24 Errol Babb MD Primary Care Provider Internal Medicine 12/18/19 Marya Herring APRN-GALE [address] [place] [phone] Nurse Practitioner Family 01/28/23
--- OUTSIDE RECORDS SUMMARY | 2025-01-19 10:49 | XMS_ITS | Encounter Summary ---
Author Organization [facility] Address [address] [place] [address] Care Team Providers Care Copywriter Name Role Phone Errol Babb MD Unavailable Marya Herring HOME SCHOOL COORDINATOR-BRAKE LININGS COATER Unavailable + Sena Washburn HOME SCHOOL COORDINATOR-BRAKE LININGS COATER Primary Care Provid er Reason for Visit * Reason Onset Date Comments MEDICATION REFILL 01/15/2025 Encounter Details Date Type Department Care Team (Late st Contact Info) Description 01/15/2025 Refill [facility] - Rheumatology [address] [facility] [address] [place] [address] Luis Trevino DO [address] [facility] [address] [place] [address] MEDICATION REFILL Social History Tobacco Use Types Packs/Day Years [...] encounter Miscellaneous Notes * Telephone Encounter - Adrián Hayes RN - 01/18/2025 9:46 AM CST Patient called the office to provide the update that her DEXA was scheduled for 01/19/2025 and she will ensure the imaging center faxes the results to the office. Patient also stated that her blood work will be completed at the same time as the DEXA. No further questions or concerns and will updateDdanay Trevino. ORK DESIGNER * Telephone Encounter - Adrián Hayes RN - 01/15/2025 10:12 AM CST Patient chart, labs and allergies reviewed and medication refilled per last office visit note. Called patient, no answer, LMOR for patient to inform of the prednisone refill and the need for updated DEXA per Dr. Trevino's recommendations sometime this month. NON-BIOLOGIC REFILL REQUEST Last OV: 11/26/2024 Next Appointment: 07/22/2025 Last Fill: 11/13/2024 DEXA ordered in November of 2024 Recent Labs Component Name 03/22/2192811/23/20 1531 05/12/20 1255 WBC 5.6 12.8* 10.6 HGB 15.4 12.6 14.2 PLTCOUNT 257 288 238 MCV 101* 105.6* 104.2* Recent Labs Component Name 03/22/2129 11/23/20 1531 05/12/20 1257 02/12/20 1250 CREATININE 1.12* 0.95 0.91 0.78 BUN 24 18 16 SODIUM 143 - 141 142 POTASSIUM 5.1 4.5 3.7 4.1 Recent Labs Component Name 03/22/2129 11/23/20 1531 05/12/20 1257 02/12/20 1250 EGFR 53* 65* >60 >60 EGFRAFR 61 - >60 >60 Recent Labs Component Name 03/22/2129 11/23/20 1531 05/12/20 1257 02/12/20 1250 AST 27 23 22 24 ALT 24 22 17 20 ALKPHOS 113 100 84 78 TBIL 0.4 - 0.4 0.7 No results for input(s): [id number] in the last 74086 hours. No results for input(s): URICACID in the last 37505 hours. Last ESR: Recent Labs Component Name 03/22/21 0929 05/12/20 1255 02/12/20 1250 SEDRATE 9 4 3 Last 3 CRP: Recent Labs Component Name 03/22/21 0929 11/23/20 1531 05/12/20 1257 CRP 4 <0.5 <0.20 Last Eye exam (if refill for hydroxychloroquine): N/A ORK DESIGNER documented in this encounter Plan of Treatment Upcoming Encounters Date Type Department Care Team (Late st Contact Info) Description 07/22/2025 10:00 AM CDT Office Visit [facility] - Rheumatology [address] [facility], [address] [place] [address] Luis Trevino DO [address] [place] [address] documented as of this encounter Visit Diagnoses Diagnosis Rheumatoid arthritis, seronegative, multiple sites (HCC) documented in this encounter Care Teams Copywriter Relationship Specialty Start Date End Date Sena Washburn APRN-BRAKE LININGS COATER [address] [place] [address] PCP - General Nurse Practitioner Family 11/26/24 Errol Babb MD Primary Care Provider Internal Medicine 12/18/19 Marya Herring APRN-GALE [address] [place] [phone] Nurse Practitioner Family 01/28/23 documented as of this encounter
--- OUTSIDE RECORDS SUMMARY | 2025-01-19 10:49 | XMS_ITS | Encounter Summary ---
Author Organization [facility] Address [address] [place] [address] Care Team Providers Care Paint Prep Technician Name Role Phone Errol Babb MD Unavailable [phone] Dennise Rose PA-C Primary Care Provider [phone] NimaMarya pichardo COMMISSIONING EDITOR-TEST PREPARER Unavailable + Marya Allred Unavailable [phone] NimaMarya pichardo COMMISSIONING EDITOR-TEST PREPARER Unavailable + Sena Washburn COMMISSIONING EDITOR-TEST PREPARER Primary Care Provid er Encounter Details Date Type Department Care Team (Late st Contact Info) Description 12/18/2021 Telephone [facility] - Rheumatology [address], [address] [place] [address] Luis Trevino DO [address] [place] [address] Social History Tobacco Use Types [...] Nalini Newberry RPhT - 02/21/2022 10:06 AM RADIO TOWER TECHNICIAN A second appeal has been file w/additional chart notes O TOWER TECHNICIAN * Telephone Encounter - Nalini Newberry RPhT - 01/03/2022 10:39 AM CDT The appeal for Olumiant tabs has been filed@ [phone]. * Telephone Encounter - Nalini Newberry RPhT - 12/20/2021 2:08 PM CDT Another PA has been filed w/additional chart notes by fax@ [phone]. Medication Prior Authorization Medication: Olumiant Status: Denied Submitted via: Fax #[phone] Insurance: [employer] Case Number: Nt provided Helpdesk: [phone] * Telephone Encounter - Nalini Newberry RPhT - 12/18/2021 2:36 PM CDT Medication Prior Authorization Medication: Olumiant Status: Submitted - Pending Submitted via: Cover My Meds (Wylie:[id number]) Insurance: [employer] Case Number: Nt provided. Helpdesk: [phone] documented in this encounter Plan of Treatment Upcoming Encounters Date Type Department Care Team (Late st Contact Info) Description 07/22/2025 10:00 AM CDT Office Visit [facility] - Rheumatology [address], [address] [place] [address] Tyson TrevinoanDO [address] [place] [address] documented as of this encounter Visit Diagnoses Not on filedocumented in this encounter Care Teams Paint Prep Technician Relationship Specialty Start Date End Date Dennise Rose, PAAdonisC [address] [place] [address] PCP - General Physician [employer] Architect 12/22/20 11/25/24 Sena Washburn APRN-TEST PREPARER [address] [place] [address] PCP - General Nurse Practitioner Family 11/26/24 Errol Babb MD Primary Care Provider Internal Medicine 12/18/19 Marya Herring APRN-CNP [address] [place] [phone] Nurse Practitioner Family 01/28/23 01/28/23 Marya Allred [address] [place] [id number] Vascular Surgery 01/28/23 01/28/23 Marya Herring APRN-CNP [address] [place] [phone] Nurse Practitioner Family 01/28/23 documented as of this encounter
[2025-01-19 11:11] LABS: Hematocrit 39.7 % (35.0-42.0); Hemoglobin 13.0 g/dL (11.7-13.8); Immature Granulocyte Percent A 0.4 % (0.0-0.0); Lymphocytes Absolute Auto 3.09 K/mm3 (1.10-4.50); Mean Corpuscular HGB Conc 32.7 g/dL (32-36); Mean Corpuscular Hemoglobin 32.1 pg (27.0-31.0); Mean Corpuscular Volume 98.0 fL (78.0-102.0); Nucleated Red Blood Cells Absolute Auto 0.00 K/mm3 (0.00-0.00); Nucleated Red Blood Cells Perc 0.0 % (0-0.0); Platelet Count Result 282 K/mm3 (150-420); Red Blood Count 4.05 M/mm3 (4.20-5.40); White Blood Count 9.3 K/mm3 (4.8-10.8)
[2025-01-19 11:44] LABS: Alanine Aminotransferase 33 U/L (6-35); Albumin Level 4.5 g/dL (3.5-5.1); Alkaline Phosphatase 65 U/L (38-126); Anion Gap 4 mmol/L (4-12); Aspartate Amino Transferase 44 U/L (14-36); Bilirubin,Total 1.4 mg/dL (0.2-1.3); Blood Urea Nitrogen 21 mg/dL (7-17); Calcium 9.4 mg/dL (8.4-10.2); Carbon Dioxide 32 mmol/L (22-30); Chloride 103 mmol/L (98-107); Estimated Glomerular Filt Rate 59; Glucose 87 mg/dL (65-110); Osmolality Calculated 290 mOsm/kg (285-295); Potassium 4.4 mmol/L (3.4-5.0); Sodium 139 mmol/L (137-145); Total Protein 6.7 g/dL (6.3-8.2)
== END 2025-01-19 10:16 | disposition home or self-care (01) ==
LOC: CHSIMG 10:17
PROVIDERS: PCP Nurse Practitioner Family; Visit Provider Internal Medicine Rheumatology
DX: Z79.52 Long term (current) use of systemic steroids (principal); M85.88 Other specified disorders of bone density and structure, other site; Z79.622 Long term (current) use of Janus kinase inhibitor
CPT/HCPCS: 36415; 77080; 80053; 85025